=== PATIENT | female | born 1995 | race African-American/Black ===

== ENCOUNTER 2019-05-28 03:13 | Emergency (ER) | payer OTHER ==
[2019-05-28 04:51] LABS: BASO % 0.3 % (0.0-1.0); EOS # 0.4 10^3/uL (0.0-0.5); HEMATOCRIT 38.3 % (36.0-47.0); HEMOGLOBIN 11.8 g/dl (12.0-15.5); LYMPH % 32.5 % (24.0-44.0); MEAN CORPUSCULAR HEMOGLOBIN 23.9 pg (27.0-33.0); MEAN CORPUSCULAR HGB CONC 30.8 g/dl (32.0-36.5); MEAN CORPUSCULAR VOLUME 77.7 fl (80.0-96.0); MONO # 0.4 10^3/uL (0.0-0.8); MONO % 6.2 % (0.0-5.0); NEUTROPHILS # 3.4 10^3/uL (1.5-8.5); NEUTROPHILS % 54.8 % (36.0-66.0); PLATELET COUNT, AUTOMATED 237 10^3/uL (150-450); RED BLOOD COUNT 4.93 10^6/uL (4.00-5.40); WHITE BLOOD COUNT 6.2 10^3/uL (4.0-10.0)
[2019-05-28 05:10] LABS: HCG, SERUM QUALITATIVE NEGATIVE (NEGATIVE)
[2019-05-28 05:13] LABS: ALBUMIN 3.6 GM/DL (3.2-5.2); ALT/SGPT 17 U/L (12-78); BILIRUBIN,DIRECT 0.2 MG/DL (0.0-0.2); BILIRUBIN,TOTAL 0.6 MG/DL (0.2-1.0); BLOOD UREA NITROGEN 9 MG/DL (7-18); CALCIUM LEVEL 8.1 MG/DL (8.5-10.1); CARBON DIOXIDE LEVEL 27 MEQ/L (21-32); CHLORIDE LEVEL 108 MEQ/L (98-107); CREATININE FOR GFR 0.63 MG/DL (0.55-1.30); GLOMERULAR FILTRATION RATE > 60.0 (>60); GLUCOSE, FASTING 87 MG/DL (70-100); LIPASE 93 U/L (73-393); SODIUM LEVEL 142 MEQ/L (136-145); TOTAL PROTEIN 7.1 GM/DL (6.4-8.2)
[2019-05-28 06:55] LABS: CK-MB VALUE MASS < 1.0 NG/ML (<3.6); CPK CREATINE PHOSPHOKINASE 89 U/L (26-192); MB/CK RELATIVE INDEX 1.12 (< OR =4); TROPONIN I < 0.02 NG/ML (< 0.10)
--- NOTE | 2019-05-28 07:13 | REP ---
Clinical: Chest and abdominal pain . Comparison: None . Technique: PA and lateral. Findings: The mediastinum and cardiac silhouette are normal. The lung wahl are clear and without acute consolidation, effusion, or pneumothorax. The skeletal structures are intact and normal. Impression: 1. No acute cardiopulmonary process. Electronically Signed by Silvestre Steel MD 05/28/2019 07:04 A
--- NOTE | 2019-05-28 08:32 | REP ---
Clinical: Right upper quadrant pain. Technique: Real time andrade scale and color evaluation using curved array transducer. Findings: Liver and visualized pancreas are normal in contour, size, echogenicity without focal hepatic or pancreatic lesion identified. The patient is status post cholecystectomy. No biliary ductal dilatation is appreciated and the common bile duct measures 6.3 mm diameter. The right kidney is normal in reniform shape without hydronephrosis and measures 10.2 x 5.5 x 4.2 cm. No ascites. Impression: Cholecystectomy. No acute process. Electronically Signed by Silvestre Steel MD 05/28/2019 08:23 A
[2019-05-28] MEDS ORDERED: FLUCONAZOLE 50MG TABLET PO ONE (09:00)
[2019-05-28] MEDS ORDERED: GI COCKTAIL 50ML BTL(HYOSCYAMINE/MAALOX/LIDOCAINE VISCOUS)(1:3:1) PO ONE (09:00)
[2019-05-28] MEDS ORDERED: OMEP40CA97 PO (09:27)
[2019-05-28 09:57] VITALS: BP 100/61
[2019-05-28] MEDS ORDERED: FLUCONAZOLE 100 MG TAB PO ONE (10:00)
[2019-05-28 10:20] LABS: CHLAMYDIA DNA AMPLIFICATION NEGATIVE (NEGATIVE); GC DNA AMPLIFICATION NEGATIVE (NEGATIVE)
--- NOTE | 2019-05-28 15:24 | ECGEPIP ---
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
== END 2019-05-28 09:59 | disposition home or self-care (01) ==
LOC: M ED 03:13
DX: K29.70 Gastritis, unspecified, without bleeding (principal); B37.3 Candidiasis of vulva and vagina; Z87.19 Personal history of other diseases of the digestive system; Z90.49 Acquired absence of other specified parts of digestive tract; Z88.0 Allergy status to penicillin

== ENCOUNTER 2020-08-11 15:08 | Emergency (ER) | payer MEDICAID, OTHER ==
[~2020-08-11] VITALS: Ht 160 cm; Wt 84.4 kg
[~2020-08-11 15:08] MED LIST: OMEP40CA97 PO
[2020-08-11] MEDS ORDERED: acetaminophen PO (15:18)
[2020-08-11 16:09] LABS: BASO % 0.7 % (0.0-1.0); EOS # 0.3 10^3/uL (0.0-0.5); EOS % 4.9 % (0.0-3.0); HEMATOCRIT 36.7 % (36.0-47.0); HEMOGLOBIN 11.8 g/dl (12.0-15.5); LYMPH # 2.2 10^3/uL (1.5-5.0); LYMPH % 35.6 % (24.0-44.0); MEAN CORPUSCULAR HEMOGLOBIN 24.7 pg (27.0-33.0); MEAN CORPUSCULAR HGB CONC 32.2 g/dl (32.0-36.5); MEAN CORPUSCULAR VOLUME 76.9 fl (80.0-96.0); MONO # 0.4 10^3/uL (0.0-0.8); MONO % 5.9 % (2.0-8.0); NEUTROPHILS # 3.2 10^3/uL (1.5-8.5); NEUTROPHILS % 52.6 % (36.0-66.0); PLATELET COUNT, AUTOMATED 264 10^3/uL (150-450); RED BLOOD COUNT 4.77 10^6/uL (4.00-5.40); WHITE BLOOD COUNT 6.1 10^3/uL (4.0-10.0)
[2020-08-11] MEDS ORDERED: ISOVUE-370 76% 100ML VIAL As Ordered ONE (16:47)
[2020-08-11 17:12] LABS: BILIRUBIN,DIRECT 0.2 MG/DL (0.0-0.2); BILIRUBIN,TOTAL 0.6 MG/DL (0.2-1.0); TOTAL PROTEIN 7.4 GM/DL (6.4-8.2)
--- NOTE | 2020-08-11 17:21 | REP ---
INDICATION: lower abd pain/b flank pain. COMPARISON: None. TECHNIQUE: CT of the abdomen and pelvis with IV contrast, without bowel contrast. FINDINGS: The visualized lung wahl are unremarkable. The visualized lower ribs are unremarkable. The visualized thoracic and lumbar vertebra are unremarkable. The skeletal structures of the pelvis and hips are unremarkable. The hepatic parenchyma is homogeneous and unremarkable. There are surgical clips in the gallbladder fossa. The pancreas and spleen are normal size and unremarkable. The adrenals and kidneys are unremarkable. There is no hydronephrosis. There are no renal masses or cysts. There is no perinephric stranding or fluid collection. The abdominal aorta is unremarkable. There is no periaortic adenopathy, mass or fluid collection. There is no bowel distention, obstruction or wall thickening. The mesentery is unremarkable. Pelvis: There is a 3.1 cm left adnexal cyst. The right adnexa is unremarkable. The uterus is unremarkable. The bladder is unremarkable. There is no ascites or adenopathy. The pelvic bowel loops are unremarkable. The appendix and terminal ileum are unremarkable. IMPRESSION: There is a left adnexal cyst measuring up to 3.1 cm. Otherwise, essentially negative CT of the abdomen and pelvis. <Electronically signed by Bandar Robles > 08/11/20 [id number]
[2020-08-11 18:18] VITALS: BP 126/78
== END 2020-08-11 18:20 | disposition home or self-care (01) ==
LOC: M ED 15:08
DX: N83.202 Unspecified ovarian cyst, left side (principal); Z88.0 Allergy status to penicillin
CPT/HCPCS: 36415; 74177; 80047; 80076; 81001; 83690; 84702; 85025; 99284; Q9967

== ENCOUNTER 2020-09-06 11:28 | Emergency (ER) | payer MEDICAID ==
[~2020-09-06] VITALS: Ht 160 cm; Wt 77.3 kg
[2020-09-06 11:28] VITALS: BP 129/70
[~2020-09-06 11:28] MED LIST changes: +acetaminophen PO
== END 2020-09-06 11:45 | disposition left against medical advice (07) ==
LOC: M ED 11:28
DX: Z53.21 Procedure and treatment not carried out due to patient leaving prior to being seen by health care provider (principal)

== ENCOUNTER 2021-03-18 17:06 | Inpatient (IN) | payer MEDICAID ==
[~2021-03-18] VITALS: Ht 152.4 cm; Wt 87.8 kg
[~2021-03-18 17:06] MED LIST changes: +OMEP40CA4 PO; -OMEP40CA97 PO
[2021-03-18] MEDS ORDERED: NS 1,000 ML IV ONE (17:20)
[2021-03-18] MEDS ORDERED: ONDANSETRON 4MG/2ML VIAL IV ONE (17:20)
[2021-03-18] MEDS ORDERED: GI COCKTAIL 50ML BTL(HYOSCYAMINE/MAALOX/LIDOCAINE VISCOUS)(1:3:1) PO ONE (17:20)
[2021-03-18 17:49] LABS: BASO % 0.4 % (0.0-1.0); EOS # 0.4 10^3/uL (0.0-0.5); EOS % 5.2 % (0.0-3.0); HEMATOCRIT 32.9 % (36.0-47.0); HEMOGLOBIN 10.7 g/dl (12.0-15.5); LYMPH # 2.6 10^3/uL (1.5-5.0); LYMPH % 37.5 % (24.0-44.0); MEAN CORPUSCULAR HEMOGLOBIN 23.9 pg (27.0-33.0); MEAN CORPUSCULAR HGB CONC 32.5 g/dl (32.0-36.5); MEAN CORPUSCULAR VOLUME 73.6 fl (80.0-96.0); MONO # 0.7 10^3/uL (0.0-0.8); MONO % 9.5 % (2.0-8.0); NEUTROPHILS # 3.3 10^3/uL (1.5-8.5); NEUTROPHILS % 47.3 % (36.0-66.0); PLATELET COUNT, AUTOMATED 300 10^3/uL (150-450); RED BLOOD COUNT 4.47 10^6/uL (4.00-5.40)
--- NOTE | 2021-03-18 17:52 | ECGEPIP ---
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
--- OUTSIDE RECORDS SUMMARY | 2021-03-18 18:09 | CCD | Continuity of Care Document ---
Author Author [facility] Organization [facility] Address Unknown Phone Unavailable Care Team Providers Care Phytochemistry Professor Name Role Phone Pushpa Tomlinson MD Unavailable Unavailable Allergies, Adverse Reactions, Alerts Substance Reaction Status Criticality latex Active No Information Penicillins Hives / Skin Rash Active No Information Medications Medication Instructions Dosage Effective Dates (start - stop) Sta tus Comments naproxen 500 mg tablet take 1 tablet by oral route 2 times e very day with food 500 MG - Active NuvaRing 0.12 mg-0.015 mg/24 hr vaginal 1 ring inserte d vaginally x 3weeks, then 1 week out - Active Problems Condition Effective Dates (start - stop) Clinical Status C omments Unspecified injury of neck, initial encounter Pain in left shoulder Pain in right shoulder Pain in thoracic spine Other sex counseling Encounter for oth general cnsl and advice on contraception Encntr for f/u exam aft trtmt for cond oth than malig neoplm Encntr for f/u exam aft trtmt for cond oth than malig neoplm Encounter for oth general cnsl and advice on contraception Encounter for surveillance of vagnl ring Other sex counseling Encounter for test, result positive Problems related to unwanted state, incidental Encounter for elective termination of Encounter for other specified special examinations Unspecified blood type, Rh positive Encntr screen for dis of the bld/bld-form org/immun mechnsm Other sex counseling Encounter for oth general cnsl and advice on contraception Encntr screen for infections w sexl mode of transmiss High risk heterosexual behavior Pelvic and perineal pain Unspecified ovarian cyst, unspecified side Encounter for oth general cnsl and advice on contraception Encounter for surveillance of vagnl ring Other sex counseling Human immunodeficiency virus [HIV] counseling - Encounter for [facility] general cnsl and advice on contraception Other sex counseling Candidiasis of vulva and vagina Other specified noninflammatory disorders of vagina Pruritus vulvae Human immunodeficiency virus [HIV] counseling - Encntr for general adult medical exam w/o abnormal findings Anemia, unspecified Human immunodeficiency virus [HIV] counseling Other sex counseling Encounter for [facility] general cnsl and advice on contraception Acute vaginitis Encounter for screening for malignant neoplasm of cervix Encntr for obstetrics gyn physician 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) (routine) w/o abn findings Encntr screen for infections w sexl mode of transmiss Encounter for screening for human immunodeficiency virus Human immunodeficiency virus [HIV] counseling Other sex counseling Encounter for [facility] general cnsl and advice on contraception Encounter for surveillance of vagnl ring Encounter for [facility] general cnsl and advice on contraception Encounter for surveillance of vagnl ring Candidiasis of vulva and vagina Other sex counseling Encounter for [facility] general cnsl and advice on contraception Encntr for f/u exam aft trtmt for cond [facility] than [facility] Encounter for test, result positive Encntr screen for infections w sexl mode of transmiss Other sex counseling Encounter for [facility] general cnsl and advice on contraception Encounter for initial prescription of vagnl ring Encounter for elective termination of Encounter for other specified special examinations Unspecified blood type, Rh positive Problems related to unwanted state, incidental High risk heterosexual behavior Human immunodeficiency virus [HIV] counseling Nausea Other sex counseling Encounter for [facility] general cnsl and advice on contraception Human immunodeficiency virus [HIV] counseling Candidiasis of vulva and vagina Inapprop chg quantitav hCG in early Other sex counseling Encounter for [facility] general cnsl and advice on contraception Encntr for f/u exam aft trtmt for cond [facility] than mal neopl Encounter for prescription of emergency contraception Encounter for initial prescription of contraceptive pills Inapprop chg quantitav hCG in early Encounter for elective termination of Encounter for test, result positive Encntr screen for infections w sexl mode of transmiss state, incidental Encounter for blood typing Problems related to unwanted Encounter for other specified special examinations Encounter for [facility] general cnsl and advice on contraception High risk heterosexual behavior Human immunodeficiency virus [HIV] counseling Encounter for screening for human immunodeficiency virus Other sex counseling Less than 8 weeks gestation of Encounter for preprocedural laboratory examination Encounter for other preprocedural examination Procedures Procedure Date No Information Results Test Name Date and Time Measure Units Reference Range Abnormal Flag St atus Comments No Information Advance Directives Directive Yes / No Effective Date File Name No Information Encounters Encounter Description Practice Location Reason(s) For Visit Diagnose s Date Provider Providers Copied on Encounter [facility], [address] [place] [address], [id number], [place] tel:[phone] [facility] No Information Luz Maria Barrow. [address] [place] [address], [id number], [place]. tel:[phone] [facility], [address] [place] [address], [id number], [place] tel:[phone] [facility] Unspecified injury of neck, initial encounterPain in left shoulderPain in right shoulderPain in thoracic spine Christian Goldstein. [address] [place] [address], [id number], [place]. tel:[phone] Referring Provider: Susanne Gonzales, [address] [place] [address], [id number]. tel:[phone] [facility], [address] [place] [address], [id number], [place] tel:[phone] [facility] Other sex counselin gEncounter for oth general cnsl and advice on contraceptionEncntr for f/u exam aft trtmt for cond oth than malig neoplm Harshad Pelaez. [address], [place], [id number], [place]. tel:[phone] Referring Provider: Marycarmen Patricia, [address] [place] [address], [id number]. tel:[phone] [facility], [address] [place] [address], [id number], [place] tel:[phone] [facility] No Information Alona Goldstein. [address], [place], [id number], [place]. tel:[phone] [facility], [address], [place], [id number], [place] tel:[phone] [facility] Encntr for f/u exam aft trtmt for cond oth than malig neoplmEncounter for oth general cnsl and advice on contraceptionEncounter for surveillance of vagnl ringOther sex counseling Christian Goldstein. [address] [place], [place], [id number], [place]. tel:[phone] Referring Provider: Susanne Gonzales, [address], [place], [id number]. tel:[phone] [facility], [address], [place], [id number], [place] tel:[phone] [facility] Encounter for pregn delmi test, result positiveProblems related to unwanted pregnancy state, incidentalEncounter for elective termination of pregnancyEncounter for other specified special examinationsUnspecified blood type, Rh positiveEncntr screen for dis of the bld/bld-form org/immun mechnsmOther sex counselingEncounter for oth general cnsl and advice on contraceptionEncntr screen for infections w sexl mode of transmissHigh risk heterosexual behavior Christian Goldstein. [address], [place], [id number], [place]. tel:[phone] Referring Provider: Susanne Gonzales, [address], [place], [id number]. tel:[phone] [facility], [address], [place], [id number], [place] tel:[phone] [facility] Pelvic and perineal painUnspecified ovarian cyst, unspecified sideEncounter for oth general cnsl and advice on contraceptionEncounter for surveillance of vagnl ringOther sex counselingHuman immunodeficiency virus [HIV] counseling Christian Goldstein. [address] [place] [address], [id number], [place]. tel:[phone] Referring Provider: Susanne Gonzales, [address] [place] [address], [id number]. tel:[phone] [facility], [address] [place] [address], [id number], [place] tel:[phone] [facility] Encounter for oth g eneral cnsl and advice on contraceptionOther sex counselingCandidiasis of vulva and vaginaOther specified noninflammatory disorders of vaginaPruritus vulvaeHuman immunodeficiency virus [HIV] counseling Dwello Marycarmen duke. [address] [place] [address], [id number], [place]. tel:[phone] Referring Provider: Marycarmen Patricia, [address] [place] [address], [id number]. tel:[phone] [facility], [address] [place] [address], [id number], [place] tel:[phone] [facility] Encntr for general adult medical exam w/o abnormal findingsAnemia, unspecified Dwello Marycarmen nguyen. [address] [place] [address], [id number], [place]. tel:[phone] Referring Provider: Marycarmen Patricia, [address] [place] [address], [id number]. tel:[phone] [facility], [address] [place] [address], [id number], [place] tel:[phone] [facility] Human immunodeficie ncy virus [HIV] counselingOther sex counselingEncounter for oth general cnsl and advice on contraceptionAcute vaginitisEncounter for screening for malignant neoplasm of cervix Turner Wade. [address] [place] [address], [id number], [place]. tel:[phone] Referring Provider: Sheri Tompkins, [address] [place], [place], [id number]. tel:[phone] [facility], [address] [place] [address], [id number], [place] tel:[phone] [facility] Encntr for obstetrics gyn physician 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) (routine) w/o abn findingsEncntr screen for infections w sexl mode of transmissEncounter for screening for human immunodeficiency virusHuman immunodeficiency virus [HIV] counselingOther sex counselingEncounter for oth general cnsl and advice on contraceptionEncounter for surveillance of vagnl ring Harshad Pelaez. [address] [place] [address], [id number], [place]. tel:[phone] Referring Provider: Marycarmen Patricia, [address] [place] [address], [id number]. tel:[phone] [facility], [address] [place] [address], [id number], [place] tel:[phone] [facility] Encounter for oth g eneral cnsl and advice on contraceptionEncounter for surveillance of vagnl ringCandidiasis of vulva and vagina Alvina Borges. [address] [place] [address], [id number], [place]. tel:[phone] Referring Provider: Pushpa Tomlinson, [address] [place] [address], [id number]. tel:[phone] [facility], [address] [place] [address], [id number], [place] tel:[phone] [facility] Other sex counselin gEncounter for oth general cnsl and advice on contraceptionEncntr for f/u exam aft trtmt for cond oth than malig neoplm Paula Navarro. [address], [place], [id number], [place]. tel:[phone] Referring Provider: Melanie Mitchell, [address], [place], [id number]. tel:[phone] [facility], [address] [place] [address], [id number], [place] tel:[phone] [facility] [place] Encounter for pregn delmi test, result positiveEncntr screen for infections w sexl mode of transmissOther sex counselingEncounter for oth general cnsl and advice on contraceptionEncounter for initial prescription of vagnl ringEncounter for elective termination of pregnancyEncounter for other specified special examinationsUnspecified blood type, Rh positiveProblems related to unwanted pregnancy state, incidentalHigh risk heterosexual behaviorHuman immunodeficiency virus [HIV] counselingNausea Bill Amin. [address] [place] [address], [id number], [place]. tel:[phone] Referring Provider: Eloisa Khan, [address], [place], [id number]. tel:[phone] [facility], [address] [place] [address], [id number], [place] tel:[phone] [facility] Other sex counselin gEncounter for oth general cnsl and advice on contraceptionHuman immunodeficiency virus [HIV] counselingCandidiasis of vulva and vagina Paula rios [address] [place] [address], [id number], [place]. tel:[phone] Referring Provider: Melanie Mitchell, [address] [place] [address], [id number]. tel:[phone] [facility], [address] [place] [address], [id number], [place] tel:[phone] [facility] Inapprop chg quanti tav hCG in early Paula Navarro. [address], [place], [id number], [place]. tel:[phone] Referring Provider: Melanie Mitchell, [address], [place], [id number]. tel:[phone] [facility], [address] [place] [address], [id number], [place] tel:[phone] [facility] Other sex counselin gEncounter for oth general cnsl and advice on contraceptionEncntr for f/u exam aft trtmt for cond oth than malig neoplmEncounter for prescription of emergency contraception Encounter for initial prescription of contraceptive pillsInapprop chg quantitav hCG in early iBll Amin. [address] [place] [address], [id number], . tel:[phone] Referring Provider: Eloisa Khan, [address] [place] [address], [id number]. tel:[phone] [facility], [address] [place] [address], [id number], [place] tel:[phone] [facility] Encounter for elect chava termination of Bill Amin. [address] [place] [address], [id number], [place]. tel:[phone] Referring Provider: Eloisa Khan, [address], [place], [id number]. tel:[phone] [facility], [address] [place] [address], [id number], [place] tel:[phone] [facility] Encounter for pregn delmi test, result positiveEncntr screen for infections w sexl mode of transmiss state, incidentalEncounter for blood typingProblems related to unwanted pregnancyEncounter for other specified special examinationsEncounter for oth general cnsl and advice on contraceptionHigh risk heterosexual behaviorHuman immunodeficiency virus [HIV] counselingEncounter for screening for human immunodeficiency virusOther sex counselingLess than 8 weeks gestation of pregnancyEncounter for preprocedural laboratory examinationEncounter for other preprocedural examination Paula Navarro. [address] [place] [address], [id number], [place]. tel:[phone] Referring Provider: Melanie Mitchell, [address] [place] [address], [id number]. tel:[phone] Family History Family Member Diagnosis Age At Onset Maternal aunt Cancer, ovarian 1st degree relative No hx of cancer of breast, colon, endome trium or ovary 1st degree relative No hx of venous thromboembolism 1st degree relative No hx of coronary heart disease (female <65, male <55) Mother Hypertension Maternal grandmother Diabetes mellitus Immunizations Vaccine Date Status Comments No Information Payers Payer name Insurance type Covered alliance party ID Authorization(s ) Medicaid MC [id number] Social History Type Description Quantity Date Captured Comments Alcohol Use Details Unknown Caffeine Use Details Unknown Tobacco Use Status No Information Smoking Status Never smoker Sex Female Vital Signs Date / Time: Height Weight BMI Pulse Rate Blood Pressure Temperatu re Respiratory Rate Body Surface Area Head Circumference BMI percentile Pulse Ox In haled Ox No Information Chief Complaint And Reason For Visit No Information Reason For Referral Reason For Referral No Information Plan Of Treatment Date Type Action Status Appointment Ashlee Boucher BOOKED Appointment Ashlee Boucher -2 Month F/U B OOKED History Of Present Illness Encounter Date Complaint History Of Present I llness No Information Functional Status Date Functional Assessment No Information Medications Administered Medication Instructions Dosage Effective Dates (start - stop) Sta tus Comments No Information Instructions Date Instruction Additional Informati on No Information Assessments Type Assessment Date No Information Goals Health Concern Goal Type Priority Status Date No Information Medical Equipment Description Device [place] Device Identifier Effective Jose D es (start - stop) Status No Information Mental Status Date Cognitive Assessment No Information Health Concerns Observation Date No Information Concern Status Date No Information Physical Examination Exam Findings Details No Information
--- OUTSIDE RECORDS SUMMARY | 2021-03-18 18:09 | CCD | Continuity of Care Document ---
Author Author [facility] Organization [facility] Address Unknown Phone Unavailable Care Team Providers Care Timber Sprinkler Name Role Phone Pushpa Tomlinson MD Unavailable [...] immunodeficiency virus [HIV] counseling - Encounter for [facility] general cnsl and advice on contraception Other sex counseling Candidiasis of vulva and vagina Other specified noninflammatory disorders of vagina Pruritus vulvae Human immunodeficiency virus [HIV] counseling - Encntr for general adult medical exam w/o abnormal findings Anemia, unspecified Human immunodeficiency virus [HIV] counseling Other sex counseling Encounter for [facility] general cnsl and advice on contraception Acute vaginitis Encounter for screening for malignant neoplasm of cervix 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) w/o abn findings Encntr screen for infections w sexl mode of transmiss Encounter for screening for human immunodeficiency virus Human immunodeficiency virus [HIV] counseling Other sex counseling Encounter for [facility] general cnsl and advice on contraception Encounter for surveillance of vagnl ring Encounter for [facility] general cnsl and advice on contraception Encounter for surveillance of vagnl ring Candidiasis of vulva and vagina Other sex counseling Encounter for [facility] general cnsl and advice on contraception Encntr for f/u exam aft trtmt for cond [facility] than [facility] Encounter for test, result positive Encntr screen for infections w sexl mode of transmiss Other sex counseling Encounter for [facility] general cnsl and advice on contraception Encounter for initial prescription of vagnl ring Encounter for elective termination of Encounter for other specified special examinations Unspecified blood type, Rh positive Problems related to unwanted state, incidental High risk heterosexual behavior Human immunodeficiency virus [HIV] counseling Nausea Other sex counseling Encounter for [facility] general cnsl and advice on contraception Human immunodeficiency virus [HIV] counseling Candidiasis of vulva and vagina Inapprop chg quantitav hCG in early Other sex counseling Encounter for [facility] general cnsl and advice on contraception Encntr for f/u exam aft trtmt for cond [facility] than mal neopl Encounter for prescription of emergency contraception Encounter for initial prescription of contraceptive pills Inapprop chg quantitav hCG in early Encounter for elective termination of Encounter for test, result positive Encntr screen for infections w sexl mode of transmiss state, incidental Encounter for blood typing Problems related to unwanted Encounter for other specified special examinations Encounter for [facility] general cnsl and advice on contraception [...] Provider Providers Copied on Encounter [facility], [address] [place] [address], [id number], tel:[phone] FATOU Rizzo No Information Davi Pushpa. [address] [place] [address], [id number], [place]. tel:[phone] [facility], [address] [place] [address], [id number], [place] tel:[phone] FATOU [place] Unspecified injury of neck, initial encounterPain in left shoulderPain in right shoulderPain in thoracic spine Christian Goldstein. [address] [place] [address], [id number], [place]. tel:[phone] Referring Provider: Susanne Gonzales, [address] [place] [address], [id number]. tel:[phone] [facility], [address] [place] [address], [id number], [place] tel:[phone] SEBASTIANWVJANNA [place] Other sex counselin gEncounter for oth general cnsl and advice on contraceptionEncntr for f/u exam aft trtmt for cond oth than malig neoplm Harshad Pelaez. [address] [place] [address], [id number], [place]. tel:[phone] Referring Provider: Marycarmen Patricia, [address] [place] [address], [id number]. tel:[phone] [facility], [address] [place] [address], [id number], [place] tel:[phone] [facility] No Information Alona winifred Goldstein. [address] [place], [place], [id number], [place]. tel:[phone] [facility], [address] [place], [place], [id number], [place] tel:[phone] [facility] Encntr for f/u exam aft trtmt for cond oth than malig neoplmEncounter for oth general cnsl and advice on contraceptionEncounter for surveillance of vagnl ringOther sex counseling Christian Goldstein. [address] [place], [place], [id number], [place]. tel:[phone] Referring Provider: Susanne Gonzales, [address], [place], [id number]. tel:[phone] [facility], [address], [place], [id number], [place] tel:[phone] [facility] Encounter for pregn delmi test, result positiveProblems related to unwanted pregnancy state, incidentalEncounter for elective termination of pregnancyEncounter for other specified special examinationsUnspecified blood type, Rh positiveEncntr screen for dis of the bld/bld-form org/immun mechnsmOther sex counselingEncounter for oth general cnsl and advice on contraceptionEncntr screen for infections w sexl mode of transmissHigh risk heterosexual behavior Christian Goldstein. [address], [place], [id number], [place]. tel:[phone] Referring Provider: Susanne Gonzales, [address], [place], [id number]. tel:[phone] [facility], [address], [place], [id number], [place] tel:[phone] [facility] Pelvic and perineal painUnspecified ovarian cyst, unspecified sideEncounter for oth general cnsl and advice on contraceptionEncounter for surveillance of vagnl ringOther sex counselingHuman immunodeficiency virus [HIV] counseling Christian Goldstein. [address] [place] [address], [id number], [place]. tel:[phone] Referring Provider: Susanne Gonzales, [address] [place] [address], [id number]. tel:[phone] [facility], [address] [place] [address], [id number], [place] tel:[phone] PPWVNY [place] Encounter for oth g eneral cnsl and advice on contraceptionOther sex counselingCandidiasis of vulva and vaginaOther specified noninflammatory disorders of vaginaPruritus vulvaeHuman immunodeficiency virus [HIV] counseling Dwello Marycarmen duke. [address] [place] [address], [id number], [place]. tel:[phone] Referring Provider: Marycarmen Patricia, [address] [place] [address], [id number]. tel:[phone] [facility], [address] [place] [address], [id number], [place] tel:[phone] [facility] [place] Encntr for general adult medical exam w/o abnormal findingsAnemia, unspecified Dwello Marycarmen nguyen. [address] [place] [address], [id number], [place]. tel:[phone] Referring Provider: Marycarmen Patricia, [address] [place] [address], [id number]. tel:[phone] [facility], [address] [place] [address], [id number], [place] tel:[phone] PPNC[facility] [place] Human immunodeficie ncy virus [HIV] counselingOther sex counselingEncounter for oth general cnsl and advice on contraceptionAcute vaginitisEncounter for screening for malignant neoplasm of cervix Turner Wade. [address] [place] [address], [id number], [place]. tel:[phone] Referring Provider: Sheri Tompkins, [address] [place], [place], [id number]. 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 [address] [place] [address], [id number], [place]. tel:[phone] Referring Provider: Marycarmen Patricia, [address] [place] [address], [id number]. tel:[phone] [facility], [address] [place] [address], [id number], [place] tel:[phone] PP[facility] [place] Encounter for oth g eneral cnsl and advice on contraceptionEncounter for surveillance of vagnl ringCandidiasis of vulva and vagina Alvina Borges. [address] [place] [address], [id number], [place]. tel:[phone] Referring Provider: Pushpa Tomlinson, [address] [place] [address], [id number]. tel:[phone] [facility], [address] [place] [address], [id number], [place] tel:[phone] [facility]NC[facility] [place] Other sex counselin gEncounter for oth general cnsl and advice on contraceptionEncntr for f/u exam aft trtmt for cond oth than malig neoplm Paula Navarro. [address] [place], [place], [id number], [place]. tel:[phone] Referring Provider: Melanie Mitchell, [address] [place], [place], [id number]. tel:[phone] [facility], [address] [place] [address], [id number], [place] tel:[phone] [facility] [place] Encounter for pregn delmi test, result positiveEncntr screen for infections w sexl mode of transmissOther sex counselingEncounter for oth general cnsl and advice on contraceptionEncounter for initial prescription of vagnl ringEncounter for elective termination of pregnancyEncounter for other specified special examinationsUnspecified blood type, Rh positiveProblems related to unwanted pregnancy state, incidentalHigh risk heterosexual behaviorHuman immunodeficiency virus [HIV] counselingNausea Bill Amin. [address] [place] [address], [id number], [place]. tel:[phone] Referring Provider: Eloisa Khan, [address] [place], [place], [id number]. tel:[phone] [facility], [address] [place] [address], [id number], [place] tel:[phone] [facility] Other sex counselin gEncounter for oth general cnsl and advice on contraceptionHuman immunodeficiency virus [HIV] counselingCandidiasis of vulva and vagina Paula gordon. [address] [place] [address], [id number], [place]. tel:[phone] Referring Provider: Melanie Mitchell, [address] [place] [address], [id number]. tel:[phone] [facility], [address] [place] [address], [id number], [place] tel:[phone] [facility] Inapprop chg quanti tav hCG in early Paula Navarro. [address] [place], [place], [id number], [place]. tel:[phone] Referring Provider: Melanie Mitchell, [address] [place], [place], [id number]. tel:[phone] [facility] [place], [address] [place] [address], [id number], [place] tel:[phone] PP[facility] [place] Other sex counselin gEncounter for oth general cnsl and advice on contraceptionEncntr for f/u exam aft trtmt for cond oth than malig neoplmEncounter for prescription of emergency contraception Encounter for initial prescription of contraceptive pillsInapprop chg quantitav hCG in early Bill Amin. [address] [place] [address], [id number], . tel:[phone] Referring Provider: Eloisa Khan, [address] [place] [address], [id number]. tel:[phone] [facility], [address] [place] [address], [id number], [place] tel:[phone] [facility] Encounter for elect chava termination of Bill Amin. [address] [place] [address], [id number], [place]. tel:[phone] Referring Provider: Eloisa Khan, [address] [place], [place], [id number]. tel:[phone] [facility], [address] [place] [address], [id number], [place] tel:[phone] [facility] [place] Encounter for pregn delmi test, result positiveEncntr [...] examinationEncounter for other preprocedural examination Paula Navarro. [address] [place] [address], [id number], . tel:[phone] Referring Provider: Melanie Mitchell, [address] [place] [address], [id number]. tel:[phone] Family History Family Member Diagnosis Age At [...] Information Payers Payer name Insurance type Covered libertarian ID Authorization(s ) Medicaid MC [id number] Social History Type Description Quantity Date Captured Comments Sex Female Smoking Status No Information Vital Signs Date / Time: Height Weight [...] Date No Information Medical Equipment Description Device [place] Device Identifier Effective Jose D es (start - stop) Status No Information Mental Status Date Cognitive Assessment No Information Health Concerns Observation Date No Information Concern Status Date No Information Physical Examination Exam Findings Details No Information
--- OUTSIDE RECORDS SUMMARY | 2021-03-18 18:09 | CCD | Continuity of Care Document ---
Author Author [facility] Organization [facility] Address Unknown Phone Unavailable Care Team Providers Care Metal Sash Setter Name Role Phone Christian REMOTE BROADCAST TECHNICIAN, Susanne Goldstein Unavailable Unavailable Allergies, Adverse Reactions, Alerts Substance Reaction Status Criticality Penicillins Hives / Skin Rash Active No Information Medications Medication Instructions Dosage Effective Dates (start - stop) Sta tus Comments NuvaRing 0.12 mg-0.015 mg/24 hr vaginal 1 ring inserte d vaginally x 3weeks, then 1 week out - Active Probiotic 100 billion cell capsule - A ctive Problems Condition Effective Dates (start - stop) Clinical Status C omments Other sex counseling Encounter for oth general [...] immunodeficiency virus [HIV] counseling - Encounter for oth general cnsl and advice on contraception Other sex counseling Candidiasis of vulva and vagina Other specified noninflammatory disorders of vagina Pruritus vulvae Human immunodeficiency virus [HIV] counseling - Encntr for general adult medical exam w/o abnormal findings Anemia, unspecified Human immunodeficiency virus [HIV] counseling Other sex counseling Encounter for [facility] and advice on contraception Acute vaginitis Encounter for screening for malignant neoplasm of cervix 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 abn findings Encntr screen for infections w sexl mode of transmiss Encounter for screening for human immunodeficiency virus Human immunodeficiency virus [HIV] counseling Other sex counseling Encounter for ot general cnsl and advice on contraception Encounter for surveillance of vagnl ring Encounter for ot general cnsl and advice on contraception Encounter for surveillance of vagnl ring Candidiasis of vulva and vagina Other sex counseling Encounter for [facility] and advice on contraception Encntr for f/u exam aft trtmt for cond [facility] Encounter for test, result positive Encntr screen for infections w sexl mode of transmiss Other sex counseling Encounter for [facility] and advice on contraception Encounter for initial prescription of vagnl ring Encounter for elective termination of Encounter for other specified special examinations Unspecified blood type, Rh positive Problems related to unwanted state, incidental High risk heterosexual behavior Human immunodeficiency virus [HIV] counseling Nausea Other sex counseling Encounter for [facility] and advice on contraception Human immunodeficiency virus [HIV] counseling Candidiasis of vulva and vagina Inapprop chg quantitav hCG in early Other sex counseling Encounter for [facility] and advice on contraception Encntr for f/u exam aft trtmt for cond [facility] Encounter for prescription of emergency contraception Encounter for initial prescription of contraceptive pills Inapprop chg quantitav hCG in early Encounter for elective termination of Encounter for test, result positive Encntr screen for infections w sexl mode of transmiss state, incidental Encounter for blood typing Problems related to unwanted Encounter for other specified special examinations Encounter for [facility] and advice on contraception High [...] Provider Providers Copied on Encounter [facility], [address] [place] [address], [id number], tel:[phone] [facility] [place] No Information Alona Goldstein. [address], [place], [id number], [place]. tel:[phone] [facility], [address] [place] [address], [id number], [place] tel:[phone] [facility] [place] Other sex counselin gEncounter for oth general cnsl and advice on contraceptionEncntr for f/u exam aft trtmt for cond oth than malig neoplm Harshad Pelaez. [address] [place] [address], [id number], [place]. tel:[phone] Referring Provider: Marycarmen Patricia, [address] [place] [address], [id number]. tel:[phone] [facility], [address] [place] [address], [id number], [place] tel:[phone] [facility] [place] [facility] No Information Alona Goldstein. [address], [place], [id number], [place]. tel:[phone] [facility], [address] [place] [address], [id number], [place] tel:[phone] [facility] [place] Encntr for f/u exam aft trtmt for cond oth than malig neoplmEncounter for oth general cnsl and advice on contraceptionEncounter for surveillance of vagnl ringOther sex counseling Christian Goldstein. [address] [place] [address], [id number], [place]. tel:[phone] Referring Provider: Susanne Gonzales, [address], [place], [id number]. tel:[phone] [facility], [address], [place], [id number], [place] tel:[phone] [facility] Encounter for pregn delmi test, result positiveProblems related to unwanted pregnancy state, incidentalEncounter for elective termination of pregnancyEncounter for other specified special examinationsUnspecified blood type, Rh positiveEncntr screen for dis of the bld/bld-form org/immun mechnsmOther sex counselingEncounter for oth general cnsl and advice on contraceptionEncntr screen for infections w sexl mode of transmissHigh risk heterosexual behavior Christian Goldstein. [address], [place], [id number], [place]. tel:[phone] Referring Provider: Susanne Gonzales, [address], [place], [id number]. tel:[phone] [facility], [address] [place] [address], [id number], [place] tel:[phone] [facility] Pelvic and perineal painUnspecified ovarian cyst, unspecified sideEncounter for oth general cnsl and advice on contraceptionEncounter for surveillance of vagnl ringOther sex counselingHuman immunodeficiency virus [HIV] counseling Christian Goldstein. [address], [place], [id number], [place]. tel:[phone] Referring Provider: Susanne Gonzales, [address], [place], [id number]. tel:[phone] [facility], [address] [place] [address], [id number], [place] tel:[phone] [facility] Encounter for oth g eneral cnsl and advice on contraceptionOther sex counselingCandidiasis of vulva and vaginaOther specified noninflammatory disorders of vaginaPruritus vulvaeHuman immunodeficiency virus [HIV] counseling Dwello Marycarmen duke. [address] [place] [address], [id number], . tel:[phone] Referring Provider: Marycarmen Patricia, [address] [place] [address], [address] [place] [address]. tel:[phone] [facility], [address] [place] [address], [id number], [place] tel:[phone] [facility] [place] [facility] Encntr for general adult medical exam w/o abnormal findingsAnemia, unspecified Dwelldemetrius nguyen. [address] [place] [address], [id number], [place]. tel:[phone] Referring Provider: Marycarmen Patricia, [address] [place] [address], [address] [place] [address]. tel:[phone] [facility], [address] [place] [address], [id number], [place] tel:[phone] [facility] Human immunodeficie ncy virus [HIV] counselingOther sex counselingEncounter for oth general cnsl and advice on contraceptionAcute vaginitisEncounter for screening for malignant neoplasm of cervix Turner Wade. [address] [place] [address], [id number], . tel:[phone] Referring Provider: Sheri Tompkins, [address] [place] [address], [id number]. 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 [address] [place] [address], [id number], [place]. tel:[phone] Referring Provider: Marycarmen Pelaez Harshad, [address] [place] [address], [id number]. tel:[phone] [facility], [address] [place] [address], [id number], [place] tel:[phone] [facility] Encounter for oth g eneral cnsl and advice on contraceptionEncounter for surveillance of vagnl ringCandidiasis of vulva and vagina Alvina Borges. [address] [place] [address], [id number], [place]. tel:[phone] Referring Provider: Pushpa Tomlinson, [address] [place] [address], [id number]. tel:[phone] [facility], [address] [place] [address], [id number], [place] tel:[phone] [facility] Other sex counselin gEncounter for oth general cnsl and advice on contraceptionEncntr for f/u exam aft trtmt for cond oth than malig neoplm Paula Navarro. [address] [place] [address], [id number], . tel:[phone] Referring Provider: Melanie Mitchell, [address] [place] [address], [id number]. tel:[phone] [facility], [address] [place] [address], [id number], [place] tel:[phone] [facility] [place] Encounter for pregn delmi test, result positiveEncntr screen for infections w sexl mode of transmissOther sex counselingEncounter for oth general cnsl and advice on contraceptionEncounter for initial prescription of vagnl ringEncounter for elective termination of pregnancyEncounter for other specified special examinationsUnspecified blood type, Rh positiveProblems related to unwanted pregnancy state, incidentalHigh risk heterosexual behaviorHuman immunodeficiency virus [HIV] counselingNausea Bill Amin. [address] [place] [address], [address] [place] [address], . tel:[phone] Referring Provider: Eloisa Khan, [address] [place], [place], [id number]. tel:[phone] [facility], [address] [place] [address], [id number], [place] tel:[phone] [facility] Other sex counselin gEncounter for oth general cnsl and advice on contraceptionHuman immunodeficiency virus [HIV] counselingCandidiasis of vulva and vagina Paula rios [address] [place] [address], [id number], . tel:[phone] Referring Provider: Melanie Mitchell, [address] [place] [address], [address] [place] [address]. tel:[phone] [facility], [address] [place] [address], [id number], [place] tel:[phone] [facility] Inapprop chg quanti tav hCG in early Paula Navarro. [address] [place] [address], [id number], . tel:[phone] Referring Provider: Melanie Mitchell, [address], [place], [id number]. tel:[phone] [facility], [address] [place] [address], [id number], [place] tel:[phone] [facility] Other sex counselin gEncounter for oth general cnsl and advice on contraceptionEncntr for f/u exam aft trtmt for cond oth than malig neoplmEncounter for prescription of emergency contraception Encounter for initial prescription of contraceptive pillsInapprop chg quantitav hCG in early Bill Amin. [address] [place] [address], [address] [place] [address], . tel:[phone] Referring Provider: Eloisa Khan, [address] [place] [address], [address] [place] [address]. tel:[phone] [facility], [address] [place] [address], [id number], tel:[phone] [facility] Encounter for elect chava termination of Bill Amin. [address] [place] [address], [id number], . tel:[phone] Referring Provider: Eloisa Khan, [address] [place], [place], [address] [place] [address]. tel:[phone] [facility], [address] [place] [address], [address] [place] [address], tel:[phone] [facility] Encounter for pregn delmi test, result positiveEncntr [...] examinationEncounter for other preprocedural examination Paula Navarro. [address] [place] [address], [id number], . tel:[phone] Referring Provider: Melanie Mitchell, [address] [place] [address], [id number]. tel:[phone] Family History Family Member Diagnosis Age At [...] Information Payers Payer name Insurance type Covered democrat ID Authorization(s ) Medicaid MC [id number] Social History Type Description Quantity Date Captured [...] Date Type Action Status Appointment Ashlee Boucher For PT To CB BOOKED History Of Present Illness Encounter Date Complaint [...] Date No Information Medical Equipment Description Device [place] Device Identifier Effective Jose D es (start - stop) Status No Information Mental Status Date Cognitive Assessment No Information Health Concerns Observation Date No Information Concern Status Date No Information Physical Examination Exam Findings Details No Information
--- OUTSIDE RECORDS SUMMARY | 2021-03-18 18:09 | CCD | Continuity of Care Document ---
Author Author [facility] Address Unknown Phone Unavailable Care Team Providers Care Hay Farmer Name Role Phone Christian NURSE ADVOCATE, Susanne Goldstein Unavailable Unavailable Allergies, Adverse Reactions, [...] Active Probiotic 100 billion cell capsule - No Longer Active Problems Condition Effective Dates (start - [...] Unspecified ovarian cyst, unspecified side Encounter for [facility] c[facility] and advice on contraception Encounter for surveillance of vagnl ring Other sex counseling Human immunodeficiency virus [HIV] counseling - Encounter for [facility] cns[facility] and advice on contraception Other sex counseling Candidiasis of vulva and vagina Other specified noninflammatory disorders of vagina Pruritus vulvae Human immunodeficiency virus [HIV] counseling - Encntr for general adult medical exam w/o abnormal findings Anemia, unspecified Human immunodeficiency virus [HIV] counseling Other sex counseling Encounter for [facility] cns[facility] and advice on contraception Acute vaginitis Encounter for screening for malignant neoplasm of cervix Encntr for bucket turner 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) (routine) w/o abn findings Encntr screen for infections w sexl mode of transmiss Encounter for screening for human immunodeficiency virus Human immunodeficiency virus [HIV] counseling Other sex counseling Encounter for [facility] c[facility] and advice on contraception Encounter for surveillance of vagnl ring Encounter for [facility] c[facility] and advice on contraception Encounter for surveillance of vagnl ring Candidiasis of vulva and vagina Other sex counseling Encounter for [facility] c[facility] and advice on contraception Encntr for f/u exam aft trtmt for cond [facility] Encounter for test, result positive Encntr screen for infections w sexl mode of transmiss Other sex counseling Encounter for [facility] and advice on contraception Encounter for initial prescription of vagnl ring Encounter for elective termination of Encounter for other specified special examinations Unspecified blood type, Rh positive Problems related to unwanted state, incidental High risk heterosexual behavior Human immunodeficiency virus [HIV] counseling Nausea Other sex counseling Encounter for [facility] and advice on contraception Human immunodeficiency virus [HIV] counseling Candidiasis of vulva and vagina Inapprop chg quantitav hCG in early Other sex counseling Encounter for [facility] and advice on contraception Encntr for f/u exam aft trtmt for cond [facility] neopl Encounter for prescription of emergency contraception Encounter for initial prescription of contraceptive pills Inapprop chg quantitav hCG in early Encounter for elective termination of Encounter for test, result positive Encntr screen for infections w sexl mode of transmiss state, incidental Encounter for blood typing Problems related to unwanted Encounter for other specified special examinations Encounter for [facility] and advice on contraception High risk heterosexual behavior Human immunodeficiency virus [HIV] counseling Encounter for screening for human immunodeficiency virus Other sex counseling Less than 8 weeks gestation of Encounter for preprocedural laboratory examination Encounter for other preprocedural examination Procedures Procedure Date Est Pt PC Exp Prob Focused CVR Blood Pressure CVR Med.Svc. Height/Weight CVR Mechanic'S Assistant.Svc. Other Results Test Name Date and Time Measure Units Reference Range Abnormal Flag St atus Comments No Information Advance Directives Directive Yes / No Effective Date File Name No Information Encounters Encounter Description Practice Location Reason(s) For Visit Diagnose s Date Provider Providers [facility]ied on [facility], [address] [place] [address], [id number], tel:[phone] [facility] Generic Primary Care (chief complaint) Unspecified injury of neck, initial encounterPain in left shoulderPain in right shoulderPain in thoracic spine Christian Goldstein. [address] [place] [address], [id number], [place]. tel:[phone] Referring Provider: Susanne Gonzales, [address] [place] [address], [id number]. tel:[phone] [facility], [address] [place] [address], [id number], [place] tel:[phone] [facility] Other sex counselin gEncounter for oth general cnsl and advice on contraceptionEncntr for f/u exam aft trtmt for cond oth than malig neoplm Harshad Pelaez. [address] [place] [address], [id number], [place]. tel:[phone] Referring Provider: Marycarmen Patricia, [address] [place] [address], [id number]. tel:[phone] [facility], [address] [place] [address], [id number], [place] tel:[phone] [facility] No Information Alona winifred Goldstein. [address], [place], [id number], [place]. tel:[phone] [facility], [address], [place], [id number], [place] tel:[phone] [facility] Encntr for f/u exam aft trtmt for cond oth than malig neoplmEncounter for oth general cnsl and advice on contraceptionEncounter for surveillance of vagnl ringOther sex counseling Christian Goldstein. [address] [place], [place], [id number], [place]. tel:[phone] Referring Provider: Susanne Gonzales, [address], [place], [id number]. tel:[phone] [facility], [address], [place], [id number], [place] tel:[phone] [facility] Encounter for pregn delmi test, result positiveProblems related to unwanted pregnancy state, incidentalEncounter for elective termination of pregnancyEncounter for other specified special examinationsUnspecified blood type, Rh positiveEncntr screen for dis of the bld/bld-form org/immun mechnsmOther sex counselingEncounter for oth general cnsl and advice on contraceptionEncntr screen for infections w sexl mode of transmissHigh risk heterosexual behavior Christian Goldstein. [address], [place], [id number], [place]. tel:[phone] Referring Provider: Susanen Gonzales, [address], [place], [id number]. tel:[phone] [facility], [address], [place], [id number], [place] tel:[phone] [facility] Pelvic and perineal painUnspecified ovarian cyst, unspecified sideEncounter for oth general cnsl and advice on contraceptionEncounter for surveillance of vagnl ringOther sex counselingHuman immunodeficiency virus [HIV] counseling Christian Goldstein. [address] [place] [address], [id number], [place]. tel:[phone] Referring Provider: Susanne Gonzales, [address] [place] [address], [id number]. tel:[phone] [facility], [address] [place] [address], [id number], [place] tel:[phone] [facility] Encounter for oth g eneral cnsl and advice on contraceptionOther sex counselingCandidiasis of vulva and vaginaOther specified noninflammatory disorders of vaginaPruritus vulvaeHuman immunodeficiency virus [HIV] counseling [place] Marycarmen duke. [address] [place] [address], [id number], [place]. tel:[phone] Referring Provider: Marycarmen Patriica, [address] [place] [address], [id number]. tel:[phone] [facility], [address] [place] [address], [id number], [place] tel:[phone] [facility] Encntr for general adult medical exam w/o abnormal findingsAnemia, unspecified [place] Marycarmen nguyen. [address] [place] [address], [id number], [place]. tel:[phone] Referring Provider: Marycarmen Patricia, [address] [place] [address], [id number]. tel:[phone] [facility], [address] [place] [address], [id number], [place] tel:[phone] [facility] Human immunodeficie ncy virus [HIV] counselingOther sex counselingEncounter for oth general cnsl and advice on contraceptionAcute vaginitisEncounter for screening for malignant neoplasm of cervix Turner Wade. [address], [place], [id number], [place]. tel:[phone] Referring Provider: Sheri Tompkins, [address] [place], [place], [id number]. tel:[phone] [facility], [address], [place], [id number], [place] tel:[phone] [facility] Encntr for bucket turner 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) (routine) w/o abn findingsEncntr screen for infections w sexl mode of transmissEncounter for screening for human immunodeficiency virusHuman immunodeficiency virus [HIV] counselingOther sex counselingEncounter for oth general cnsl and advice on contraceptionEncounter for surveillance of vagnl ring Harshad Pelaez. [address] [place], [place], [id number], [place]. tel:[phone] Referring Provider: Marycarmen Patricia, [address] [place], [place], [id number]. tel:[phone] [facility], [address], [place], [id number], [place] tel:[phone] FATOU Heck Encounter for oth g eneral cnsl and advice on contraceptionEncounter for surveillance of vagnl ringCandidiasis of vulva and vagina Alvina Borges. [address] [place], [place], [id number], [place]. tel:[phone] Referring Provider: Pushpa Tomlinson, [address] [place], [place], [id number]. tel:[phone] [facility], [address], [place], [id number], [place] tel:[phone] [facility] Other sex counselin gEncounter for oth general cnsl and advice on contraceptionEncntr for f/u exam aft trtmt for cond oth than malig neoplm Paula Navarro. [address] [place], [place], [id number], [place]. tel:[phone] Referring Provider: Melanie Mitchell, [address] [place] [address], [id number]. tel:[phone] [facility], [address] [place] [address], [id number], [place] tel:[phone] [facility] Encounter for pregn delmi test, result positiveEncntr screen for infections w sexl mode of transmissOther sex counselingEncounter for oth general cnsl and advice on contraceptionEncounter for initial prescription of vagnl ringEncounter for elective termination of pregnancyEncounter for other specified special examinationsUnspecified blood type, Rh positiveProblems related to unwanted pregnancy state, incidentalHigh risk heterosexual behaviorHuman immunodeficiency virus [HIV] counselingNausea Bill Amin. [address] [place] [address], [id number], . tel:[phone] Referring Provider: Eloisa Khan, [address] [place], [place], [id number]. tel:[phone] [facility], [address] [place] [address], [id number], [place] tel:[phone] [facility] Other sex counselin gEncounter for oth general cnsl and advice on contraceptionHuman immunodeficiency virus [HIV] counselingCandidiasis of vulva and vagina Paula rios [address] [place] [address], [id number], [place]. tel:[phone] Referring Provider: Melanie Mitchell, [address] [place] [address], [id number]. tel:[phone] [facility], [address] [place] [address], [id number], [place] tel:[phone] [facility] Inapprop chg quanti tav hCG in early Paula Navarro. [address] [place], [place], [id number], [place]. tel:[phone] Referring Provider: Melanie Mitchell, [address], [place], [id number]. tel:[phone] [facility], [address] [place] [address], [id number], [place] tel:[phone] [facility] Other sex counselin gEncounter for oth general cnsl and advice on contraceptionEncntr for f/u exam aft trtmt for cond oth than malig neoplmEncounter for prescription of emergency contraception Encounter for initial prescription of contraceptive pillsInapprop chg quantitav hCG in early Bill Amin. [address] [place] [address], [id number], . tel:[phone] Referring Provider: Eloisa Khan, [address] [place] [address], [id number]. tel:[phone] [facility], [address] [place] [address], [id number], [place] tel:[phone] [facility] Encounter for elect chava termination of Bill Amin. [address] [place] [address], [id number], [place]. tel:[phone] Referring Provider: Eloisa Khan, [address] [place], [place], [id number]. tel:[phone] [facility], [address] [place] [address], [id number], [place] tel:[phone] [facility] Encounter for pregn delmi test, result positiveEncntr [...] examinationEncounter for other preprocedural examination Paula Navarro. [address] [place] [address], [id number], . tel:[phone] Referring Provider: Melanie Mitchell, [address] [place] [address], [id number]. tel:[phone] Family History Family Member Diagnosis Age At [...] Covered libertarian ID Authorization(s ) Medicaid MC [id number] Social History Type Description Quantity Date Captured Comments Alcohol Use Details Unknown Caffeine Use Details Unknown Tobacco Use Status Current non-smoker Smoking Status Never smoker Non-Smoking Tobacco Use Details : No Details Available : No Details Available Sex Female Vital Signs Date / Time: Height Weight BMI Pulse Rate Blood Pressure Temperatu re Respiratory Rate Body Surface Area Head Circumference BMI percentile Pulse Ox In haled Ox 1:50 PM 63.00 in 193.00 lbs 34.19 kg/meter(2) 88 /min 1 10/82 mm[Hg] 99.00 F 20 /min 98 Chief Complaint And Reason For Visit Most recent encounter only, dated '03/02/2021 07:45'. Generic Primary Care (chief complaint). Description: Onset: gradual. The proble m is severe. Duration: 2 Years. The frequency of pain is daily. Aggravating f actors include bending, climbing stairs, driving, exertion, flexion, hyperextens ion, kneeling, lifting, lying down, prolonged sitting, pushing, rotation, runnin g, standing, stress, turning head, twisting, walking and working. The patient d enies aggravating factors such as coughing, defecation, sneezing, stooping, stra ining and Valsalva. Relieving factors include rest. The patient experiences no relief from acupuncture, cervical collar, cervical traction, cold compresses, e xercise, heating pad, ice, injection, lateral bending, manipulation, massage, mu scle relaxation techniques, narcotic analgesics, NSAIDs, OTC medications, physic al therapy, rotation, sitting, splint, standing, stretching, twisting and walkin g. Associated symptoms include decreased mobility, difficulty sleeping, muscle spasm and tenderness. Pertinent negatives include bladder dysfunction not spina l related, bladder incontinence, bladder retention, bowel dysfunction not spinal related, bowel incontinence, bowel retention, dermatomic rash, incoordination, joint pain, loss of balance, muscle atrophy, numbness, rash, sexual dysfunction, sexual dysfunction (not spinal related), tingling, weakness and weight loss. Reason For Referral Reason For Referral No Information Plan Of Treatment Date Type Action Status Appointment Ashlee Boucher -2 Month F/U B OOKED History Of Present Illness Encounter Date Complaint History Of Present I llness Generic Primary Care Onset: gradual. Th e problem is severe. Duration: 2 Years. The frequency of pain is daily. Aggravating factors include bending, climbing stairs, driving, exertion, flexion, hyperextension, kneeling, lifting, lying down, prolonged sitting, pushing, rotation, running, standing, stress, turning head, twisting, walking and working. The patient denies aggravating factors such as coughing, defecation, sneezing, stooping, straining and Valsalva. Relieving factors include rest. The patient experiences no relief from acupuncture, cervical collar, cervical traction, cold compresses, exercise, heating pad, ice, injection, lateral bending, manipulation, massage, muscle relaxation techniques, narcotic analgesics, NSAIDs, OTC medications, physical therapy, rotation, sitting, splint, standing, stretching, twisting and walking. Associated symptoms include decreased mobility, difficulty sleeping, muscle spasm and tenderness. Pertinent negatives include bladder dysfunction not spinal related, bladder incontinence, bladder retention, bowel dysfunction not spinal related, bowel incontinence, bowel retention, dermatomic rash, incoordination, joint pain, loss of balance, muscle atrophy, numbness, rash, se xual dysfunction, sexual dysfunction (not spinal related), tingling, weakness and weight loss. Functional Status Date Functional Assessment No Information Medications Administered Medication Instructions Dosage Effective Dates (start - stop) Sta tus Comments No Information Instructions Date Instruction Additional Informati on No Information Assessments Type Assessment Date No Information Goals Health Concern Goal Type Priority Status Date No Information Medical Equipment Description Device [place] Device Identifier Effective Jose D es (start - stop) Status No Information Mental Status Date Cognitive Assessment Orientation - Oriented to ti me, place, person, situation.Normal Orientation Health Concerns Observation Date No Information Concern Status Date No Information Physical Examination Exam Findings Details Musculoskeletal * Cervical spine - [place], Range of motion: mild pain w/ motion. Musculoskeletal Normal Thoracic spine - [place] Inspection and Normal Range of Motion. Lumbar spine - Normal Inspection and Normal Range of Motion. Shoulder - Left: Normal Inspection and Normal Range of Motion, Right: Normal Inspection and Normal Range of Motion. Neck Exam Comments Lower neck tendernes s to palpation. Neck Exam Normal Inspection - Normal. Palpation - Normal. Parotid gland - Normal. Thyroid gland - Normal. Range of motion - Normal. Submandibular lymph nodes - Normal. Cervical lymph nodes - Normal. Neurological Normal Level of consciousne ss - Normal. Orientation - Normal. Psychiatric Normal Orientation - Fitzwilliam ed to time, place, person & situation.
--- OUTSIDE RECORDS SUMMARY | 2021-03-18 18:09 | CCD | Continuity of Care Document ---
Author Author [facility] Address Unknown Phone Unavailable Care Team Providers Care Mechanical Fitter Name Role Phone Christian MANAGER PRESENTATION, Susanne Goldstein Unavailable Unavailable Allergies, Adverse Reactions, [...] immunodeficiency virus [HIV] counseling - [facility] and advice on contraception Other sex counseling Candidiasis of vulva and vagina Other specified noninflammatory disorders of vagina Pruritus vulvae Human immunodeficiency virus [HIV] counseling - Encntr for general adult medical exam w/o abnormal findings Anemia, unspecified Human immunodeficiency virus [HIV] counseling Other sex counseling [facility] for [facility] and advice on contraception Acute vaginitis Encounter for screening for malignant neoplasm of cervix 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 for 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 meter reader 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) (routine) w/o abn findings Encntr screen for infections w sexl mode of transmiss Encounter for screening for human immunodeficiency virus Human immunodeficiency virus [HIV] counseling Other sex counseling [facility] for [facility] and advice on contraception Encounter for surveillance of vagnl ring Encounter for [facility] and advice on contraception Encounter for surveillance of vagnl ring Candidiasis of vulva and vagina Other sex counseling Encounter for [facility] and advice on contraception Encntr for f/u exam aft trtmt for cond [facility] Encounter for test, result positive Encntr screen for infections w sexl mode of transmiss Other sex counseling Encounter for [facility] and advice on contraception Encounter for initial prescription of vagnl ring Encounter for elective termination of Encounter for other specified special examinations Unspecified blood type, Rh positive Problems related to unwanted state, incidental High risk heterosexual behavior Human immunodeficiency virus [HIV] counseling Nausea Other sex counseling Encounter for [facility] and advice on contraception Human immunodeficiency virus [HIV] counseling Candidiasis of vulva and vagina Inapprop chg quantitav hCG in early Other sex counseling Encounter for [facility] and advice on contraception Encntr for f/u exam aft trtmt for cond [facility] malig neoplm Encounter for prescription of emergency contraception Encounter for initial prescription of contraceptive pills Inapprop chg quantitav hCG in early Encounter for elective termination of Encounter for test, result positive Encntr screen for infections w sexl mode of transmiss state, incidental Encounter for blood typing Problems related to unwanted Encounter for other specified special examinations Encounter for [facility] and advice on contraception [...] Provider Providers Copied on Encounter [facility], [address] [place] [address], [id number], [place] tel:[phone] FATOU Rizzo No Information Christian Goldstein. [address] [place], [place], [id number], [place]. tel:[phone] [facility], [address] [place] [address], [id number], [place] tel:[phone] FATOU Alpaugh Unspecified injury of neck, initial encounterPain in left shoulderPain in right shoulderPain in thoracic spine Christian Goldstein. [address], [place], [id number], [place]. tel:[phone] Referring Provider: Susanne Gonzales, [address] [place] [address], [id number]. tel:[phone] [facility], [address] [place] [address], [id number], [place] tel:[phone] [facility] Other sex counselin gEncounter for oth general cnsl and advice on contraceptionEncntr for f/u exam aft trtmt for cond oth than malig neoplm Harshad Pelaez. [address] [place], [place], [id number], [place]. tel:[phone] Referring Provider: Marycarmen Patricia, [address] [place] [address], [id number]. tel:[phone] [facility], [address] [place] [address], [id number], [place] tel:[phone] PPORNY Alpaugh No Information Alona Goldstein. [address], [place], [id number], [place]. tel:[phone] [facility], [address], [place], [id number], [place] tel:[phone] PPORNY Alpaugh Encntr for f/u exam aft trtmt for cond oth than malig neoplmEncounter for oth general cnsl and advice on contraceptionEncounter for surveillance of vagnl ringOther sex counseling Christian Goldstein. [address], [place], [id number], [place]. tel:[phone] Referring Provider: Susanne Gonzales, [address], [place], [id number]. tel:[phone] [facility], [address], [place], [id number], [place] tel:[phone] PPORNY Alpaugh Encounter for pregn delmi test, result positiveProblems related to unwanted pregnancy state, incidentalEncounter for elective termination of pregnancyEncounter for other specified special examinationsUnspecified blood type, Rh positiveEncntr screen for dis of the bld/bld-form org/immun mechnsmOther sex counselingEncounter for oth general cnsl and advice on contraceptionEncntr screen for infections w sexl mode of transmissHigh risk heterosexual behavior Christian Goldstein. [address], [place], [id number], [place]. tel:[phone] Referring Provider: Susanne Gonzales, [address], [place], [id number]. tel:[phone] [facility], [address], [place], [id number], [place] tel:[phone] PPORNY Alpaugh Pelvic and perineal painUnspecified ovarian cyst, unspecified sideEncounter for oth general cnsl and advice on contraceptionEncounter for surveillance of vagnl ringOther sex counselingHuman immunodeficiency virus [HIV] counseling Christian Goldstein. [address] [place] [address], [id number], [place]. tel:[phone] Referring Provider: Susanne Gonzales, [address] [place] [address], [id number]. tel:[phone] [facility], [address] [place] [address], [id number], [place] tel:[phone] PPORNY Alpaugh Encounter for oth g eneral cnsl and advice on contraceptionOther sex counselingCandidiasis of vulva and vaginaOther specified noninflammatory disorders of vaginaPruritus vulvaeHuman immunodeficiency virus [HIV] counseling Dwello Marycarmen duke. [address] [place] [address], [id number], [place]. tel:[phone] Referring Provider: Marycarmen Patricia, [address] [place] [address], [id number]. tel:[phone] [facility], [address] [place] [address], [id number], [place] tel:[phone] PPORNY Alpaugh Encntr for general adult medical exam w/o abnormal findingsAnemia, unspecified Dwello Marycarmen nguyen. [address] [place] [address], [id number], [place]. tel:[phone] Referring Provider: Marycarmen Patricia, [address] [place] [address], [id number]. tel:[phone] [facility], [address] [place] [address], [id number], [place] tel:[phone] PPORNY Alpaugh Human immunodeficie ncy virus [HIV] counselingOther sex counselingEncounter for oth general cnsl and advice on contraceptionAcute vaginitisEncounter for screening for malignant neoplasm of cervix Turner Wade. [address] [place] [address], [id number], [place]. tel:[phone] Referring Provider: Sheri Tompkins, [address] [place], [place], [id number]. tel:[phone] [facility], [address] [place] [address], [id number], [place] tel:[phone] PPNCNY Alpaugh Encntr for electric meter reader 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) (routine) w/o abn findingsEncntr screen for infections w sexl mode of transmissEncounter for screening for human immunodeficiency virusHuman immunodeficiency virus [HIV] counselingOther sex counselingEncounter for oth general cnsl and advice on contraceptionEncounter for surveillance of vagnl ring Harshad Pelaez. [address] [place] [address], [id number], [place]. tel:[phone] Referring Provider: Marycarmen Patricia, [address] [place] [address], [id number]. tel:[phone] [facility], [address] [place] [address], [id number], [place] tel:[phone] PPNCNY Heck Encounter for oth g eneral cnsl and advice on contraceptionEncounter for surveillance of vagnl ringCandidiasis of vulva and vagina Alvina Borges. [address] [place] [address], [id number], [place]. tel:[phone] Referring Provider: Psuhpa Tomlinson, [address] [place] [address], [id number]. tel:[phone] [facility], [address] [place] [address], [id number], [place] tel:[phone] PPNCNY Alpaugh Other sex counselin gEncounter for oth general cnsl and advice on contraceptionEncntr for f/u exam aft trtmt for cond oth than malig neoplm Paula Navarro. [address] [place], [place], [id number], [place]. tel:[phone] Referring Provider: Melanie Mitchell, [address] [place], [place], [id number]. tel:[phone] [facility], [address] [place] [address], [id number], [place] tel:[phone] PPNCNY Alpaugh Encounter for pregn delmi test, result positiveEncntr screen for infections w sexl mode of transmissOther sex counselingEncounter for oth general cnsl and advice on contraceptionEncounter for initial prescription of vagnl ringEncounter for elective termination of pregnancyEncounter for other specified special examinationsUnspecified blood type, Rh positiveProblems related to unwanted pregnancy state, incidentalHigh risk heterosexual behaviorHuman immunodeficiency virus [HIV] counselingNausea Bill Amin. [address] [place] [address], [id number], [place]. tel:[phone] Referring Provider: Eloisa Khan, [address], [place], [id number]. tel:[phone] [facility], [address] [place] [address], [id number], [place] tel:[phone] PPNCNY Alpaugh Other sex counselin gEncounter for oth general cnsl and advice on contraceptionHuman immunodeficiency virus [HIV] counselingCandidiasis of vulva and vagina Paula rios [address] [place] [address], [id number], [place]. tel:[phone] Referring Provider: Melanie Mitchell, [address] [place] [address], [id number]. tel:[phone] [facility], [address] [place] [address], [id number], [place] tel:[phone] PPNCNY Alpaugh Inapprop chg quanti tav hCG in early Paula Navarro. [address] [place], [place], [id number], [place]. tel:[phone] Referring Provider: Melanie Mitchell, [address] [place], [place], [id number]. tel:[phone] [facility], [address] [place] [address], [id number], [place] tel:[phone] [facility] Other sex counselin gEncounter for oth general cnsl and advice on contraceptionEncntr for f/u exam aft trtmt for cond oth than malig neoplmEncounter for prescription of emergency contraception Encounter for initial prescription of contraceptive pillsInapprop chg quantitav hCG in early Bill Amin. [address] [place] [address], [id number], . tel:[phone] Referring Provider: Eloisa Khan, [address] [place] [address], [id number]. tel:[phone] [facility], [address] [place] [address], [id number], [place] tel:[phone] [facility] Encounter for elect chava termination of Bill Amin. [address] [place] [address], [id number], [place]. tel:[phone] Referring Provider: Eloisa Khan, [address], [place], [id number]. tel:[phone] [facility], [address] [place] [address], [id number], [place] tel:[phone] PPORNY Alpaugh Encounter for pregn delmi test, result positiveEncntr [...] examinationEncounter for other preprocedural examination Paula Navarro. [address] [place] [address], [id number], [place]. tel:[phone] Referring Provider: Melanie Mitchell, [address] [place] [address], [id number]. tel:[phone] Family History Family Member Diagnosis Age At [...] alliance party ID Authorization(s ) Medicaid MC [id number] Social History Type Description Quantity Date Captured [...] Date Type Action Status Appointment Ashlee Boucher -Annual, 03/16 Previously BOOKED Appointment Ashlee Boucher -2 Month F/U [...] Date No Information Medical Equipment Description Device Garwood Device Identifier Effective Jose D es (start - stop) Status No Information Mental Status Date Cognitive Assessment No Information Health Concerns Observation Date No Information Concern Status Date No Information Physical Examination Exam Findings Details No Information
--- OUTSIDE RECORDS SUMMARY | 2021-03-18 18:10 | CCD | Continuity of Care Document ---
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) w/o abn findings Encntr [...] and vagina Other sex counseling Encounter for ot general cnsl and advice on contraception Encntr for f/u exam aft trtmt for cond [facility] than [facility] neopl Encounter for test, result positive Encntr screen for infections w sexl mode of transmiss Other sex counseling Encounter for ot general cnsl and advice on contraception Encounter for initial prescription of vagnl ring Encounter for elective termination of Encounter for other specified special examinations Unspecified blood type, Rh positive Problems related to unwanted state, incidental High risk heterosexual behavior Human immunodeficiency virus [HIV] counseling Nausea Other sex counseling Encounter for ot general cnsl and advice on contraception Human immunodeficiency virus [HIV] counseling Candidiasis of vulva and vagina Inapprop chg quantitav hCG in early Other sex counseling Encounter for ot general cnsl and advice on contraception Encntr for f/u exam aft trtmt for cond [facility] than [facility] neopl Encounter for prescription of emergency contraception Encounter for initial prescription of contraceptive pills Inapprop chg quantitav hCG in early Encounter for elective termination of Encounter for test, result positive Encntr screen for infections w sexl mode of transmiss state, incidental Encounter for blood typing Problems related to unwanted Encounter for other specified special examinations Encounter for [facility] general cnsl and advice on contraception High risk heterosexual behavior Human immunodeficiency virus [HIV] counseling Encounter for screening for human immunodeficiency virus Other sex counseling Less than 8 weeks gestation of Encounter for preprocedural laboratory examination Encounter for other preprocedural examination Procedures Procedure Date OFFICE VISIT, EST. Post AB HCS Without Test CVR Blood Pressure CVR Med.Svc. Height/Weight CVR Supervisor Liquefaction.Svc. Contraceptive CVR Supervisor Liquefaction.Svc. STI / H Results Test Name Date and Time Measure Units Reference Range Abnormal Flag St atus Comments No Information Advance Directives Directive Yes / No Effective Date File Name No Information Encounters Encounter Description Practice Location Reason(s) For Visit Diagnose s Date Provider Providers Copied on Encounter OFFICE VISIT, EST. Post AB [facility], [address] [place] [address], [id number], [place] tel:[phone] [facility] [place] [facility] Post (chief complaint) Other sex counselingEncounter for oth ge neral cnsl and advice on contraceptionEncntr for f/u exam aft trtmt for cond oth than malig neoplm Harshad Pelaez. [address] [place] [address], [id number], [place]. tel:[phone] Referring Provider: Marycarmen Patricia, [address] [place] [address], [id number]. tel:[phone] [facility] [address] [place] [address], [id number], [place] tel:[phone] [facility] [place] No Information Alona Goldstein. [address] [place] [address], [id number], [place]. tel:[phone] [facility], [address] [place] [address], [id number], [place] tel:[phone] [facility] [place] Encntr for f/u exam aft trtmt for cond oth than malig neoplmEncounter for oth general cnsl and advice on contraceptionEncounter for surveillance of vagnl ringOther sex counseling Christian Goldstein. [address], [place], [id number], [place]. tel:[phone] Referring Provider: Susanne Gonzales, [address] [place], [place], [id number]. tel:[phone] [facility], [address], [place], [id number], [place] tel:[phone] [facility] Encounter for pregn delmi test, result positiveProblems related to unwanted pregnancy state, incidentalEncounter for elective termination of pregnancyEncounter for other specified special examinationsUnspecified blood type, Rh positiveEncntr screen for dis of the bld/bld-form org/immun mechnsmOther sex counselingEncounter for oth general cnsl and advice on contraceptionEncntr screen for infections w sexl mode of transmissHigh risk heterosexual behavior Christian Goldstein. [address], [place], [id number], [place]. tel:[phone] Referring Provider: Susanne Gonzales, [address], [place], [id number]. tel:[phone] [facility], [address] [place] [address], [id number], [place] tel:[phone] [facility] Pelvic and perineal painUnspecified ovarian cyst, unspecified sideEncounter for oth general cnsl and advice on contraceptionEncounter for surveillance of vagnl ringOther sex counselingHuman immunodeficiency virus [HIV] counseling Christian Goldstein. [address], [place], [id number], [place]. tel:[phone] Referring Provider: Susanne Gonzales, [address], [place], [id number]. tel:[phone] [facility], [address] [place] [address], [id number], [place] tel:[phone] [facility] Encounter for oth g eneral cnsl and advice on contraceptionOther sex counselingCandidiasis of vulva and vaginaOther specified noninflammatory disorders of vaginaPruritus vulvaeHuman immunodeficiency virus [HIV] counseling Dwello Marycarmen duke. [address] [place] [address], [id number], . tel:[phone] Referring Provider: Marycarmen Patricia, [address] [place] [address], [id number]. tel:[phone] [facility], [address] [place] [address], [address] [place] [address], [place] tel:[phone] [facility] [place] Encntr for general adult medical exam w/o abnormal findingsAnemia, unspecified Dwello Marycarmen nguyen. [address] [place] [address], [address] [place] [address], . tel:[phone] Referring Provider: Marycarmen Patricia, [address] [place] [address], [address] [place] [address]. tel:[phone] [facility], [address] [place] [address], [id number], [place] tel:[phone] [facility] Human immunodeficie ncy virus [HIV] counselingOther sex counselingEncounter for oth general cnsl and advice on contraceptionAcute vaginitisEncounter for screening for malignant neoplasm of cervix Turner Wade. [address] [place] [address], [id number], . tel:[phone] Referring Provider: Sheri Tompkins, [address] [place] [address], [id number]. 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 [address] [place] [address], [id number], [place]. tel:[phone] Referring Provider: Marycarmen Pelaez Harshad, [address] [place] [address], [id number]. tel:[phone] [facility], [address] [place] [address], [id number], [place] tel:[phone] [facility] Encounter for oth g eneral cnsl and advice on contraceptionEncounter for surveillance of vagnl ringCandidiasis of vulva and vagina Alvina Borges. [address] [place] [address], [id number], [place]. tel:[phone] Referring Provider: Pushpa Tomlinson, [address] [place] [address], [id number]. tel:[phone] [facility], [address] [place] [address], [id number], [place] tel:[phone] [facility] [place] Other sex counselin gEncounter for oth general cnsl and advice on contraceptionEncntr for f/u exam aft trtmt for cond oth than malig neoplm Paula Navarro. [address] [place] [address], [id number], [place]. tel:[phone] Referring Provider: Melanie Mitchell, [address] [place] [address], [id number]. tel:[phone] [facility], [address] [place] [address], [id number], [place] tel:[phone] [facility] Encounter for pregn delmi test, result positiveEncntr screen for infections w sexl mode of transmissOther sex counselingEncounter for oth general cnsl and advice on contraceptionEncounter for initial prescription of vagnl ringEncounter for elective termination of pregnancyEncounter for other specified special examinationsUnspecified blood type, Rh positiveProblems related to unwanted pregnancy state, incidentalHigh risk heterosexual behaviorHuman immunodeficiency virus [HIV] counselingNausea Bill Amin. [address] [place] [address], [id number], . tel:[phone] Referring Provider: Eloisa Khan, [address], [place], [id number]. tel:[phone] [facility], [address] [place] [address], [id number], [place] tel:[phone] [facility] [place] Other sex counselin gEncounter for oth general cnsl and advice on contraceptionHuman immunodeficiency virus [HIV] counselingCandidiasis of vulva and vagina Paula rios [address] [place] [address], [id number], . tel:[phone] Referring Provider: Melanie Mitchell, [address] [place] [address], [id number]. tel:[phone] [facility], [address] [place] [address], [id number], [place] tel:[phone] [facility] [place] Inapprop chg quanti tav hCG in early Paula Navarro. [address] [place] [address], [id number], . tel:[phone] Referring Provider: Melanie Mitchell, [address] [place], [place], [id number]. tel:[phone] [facility], [address] [place] [address], [id number], [place] tel:[phone] [facility] [place] Other sex counselin gEncounter for oth general cnsl and advice on contraceptionEncntr for f/u exam aft trtmt for cond oth than malig neoplmEncounter for prescription of emergency contraception Encounter for initial prescription of contraceptive pillsInapprop chg quantitav hCG in early Bill Amin. [address] [place] [address], [id number], . tel:[phone] Referring Provider: Eloisa Khan, [address] [place] [address], [id number]. tel:[phone] [facility], [address] [place] [address], [id number], tel:[phone] [facility] Encounter for elect chava termination of Bill Amin. [address] [place] [address], [id number], [place]. tel:[phone] Referring Provider: Eloisa Khan, [address], [place], [id number]. tel:[phone] [facility], [address] [place] [address], [id number], [place] tel:[phone] [facility] Encounter for pregn delmi test, result positiveEncntr [...] examinationEncounter for other preprocedural examination Paula Navarro. [address] [place] [address], [id number], [place]. tel:[phone] Referring Provider: Melanie Mitchell, [address] [place] [address], [id number]. tel:[phone] Family History Family Member Diagnosis Age At [...] type Covered libertarian ID Authorization(s ) Medicaid [id number] Social History Type Description Quantity Date Captured [...] BMI percentile Pulse Ox In haled Ox 3:07 PM 63.00 in Chief Complaint And Reason For Visit Most recent encounter only, dated '01/23/2021 15:00'. Medication Post (chief complaint) Reason For Referral Reason For Referral No Information Plan Of Treatment Date Type Action Status Appointment [place] F[facility]u BOOKED History Of Present Illness Encounter Date Complaint History Of Present I llness No Information Functional Status Date Functional Assessment No Information Medications Administered Medication Instructions Dosage Effective Dates (start - stop) Sta tus Comments No Information Instructions Date Instruction Additional Informati on No Information Assessments Type Assessment Date assessment Other sex counseling assessment Encounter for oth general cnsl and advic e on contraception assessment Encntr for f/u exam aft trtmt for cond o th than malig neoplm Goals Health Concern Goal Type Priority Status Date No Information Medical Equipment Description Device Yeaddiss Device Identifier Effective Jose D es (start - stop) Status No Information Mental Status Date Cognitive Assessment Orientation - Oriented to ti me, place, person, situation.Normal Orientation Health Concerns Observation Date No Information Concern Status Date No Information Physical Examination Exam Findings Details Neurological Normal Level of consciousne ss - Normal. Orientation - Normal. Psychiatric Normal Orientation - [place] ed to time, place, person & situation.
--- OUTSIDE RECORDS SUMMARY | 2021-03-18 18:10 | CCD | Continuity of Care Document ---
Author Author [facility] Organization [facility] Address Unknown Phone Unavailable Care Team Providers Care Flatwork Washer Name Role Phone Dwello Marycarmen MAYA Unavailable Unavailable Allergies, Adverse Reactions, Alerts Substance Reaction Status Criticality Penicillins Hives / Skin Rash Active No Information Medications Medication Instructions Dosage Effective Dates (start - stop) Sta tus Comments NuvaRing 0.12 mg-0.015 mg/24 hr vaginal 1 ring inserte d vaginally x 3weeks, then 1 week out - Active Probiotic 100 billion cell capsule - A ctive NuvaRing 0.12 mg-0.015 mg/24 hr vaginal 1 ring inserte d vaginally x 3weeks, then 1 week out - No Longer Active Problems Condition Effective [...] immunodeficiency virus [HIV] counseling - Encounter for [facility] cnsl and advice on contraception Other sex counseling Candidiasis of vulva and vagina Other specified noninflammatory disorders of vagina Pruritus vulvae Human immunodeficiency virus [HIV] counseling - Encntr for general adult medical exam w/o abnormal findings Anemia, unspecified Human immunodeficiency virus [HIV] counseling Other sex counseling Encounter for [facility] cnsl and advice on contraception Acute vaginitis Encounter for screening for malignant neoplasm of cervix 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 abn findings Encntr screen for infections w sexl mode of transmiss Encounter for screening for human immunodeficiency virus Human immunodeficiency virus [HIV] counseling Other sex counseling Encounter for [facility] cnsl and advice on contraception Encounter for surveillance of vagnl ring Encounter for [facility] cnsl and advice on contraception Encounter for surveillance of vagnl ring Candidiasis of vulva and vagina Other sex counseling Encounter for [facility] cnsl and advice on contraception Encntr for f/u exam aft trtmt for cond [facility] than mal neopl Encounter for test, result positive Encntr screen for infections w sexl mode of transmiss Other sex counseling Encounter for [facility] cnsl and advice on contraception Encounter for initial prescription of vagnl ring Encounter for elective termination of Encounter for other specified special examinations Unspecified blood type, Rh positive Problems related to unwanted state, incidental High risk heterosexual behavior Human immunodeficiency virus [HIV] counseling Nausea Other sex counseling Encounter for [facility] cnsl and advice on contraception Human immunodeficiency virus [HIV] counseling Candidiasis of vulva and vagina Inapprop chg quantitav hCG in early Other sex counseling Encounter for [facility] cnsl and advice on contraception Encntr for f/u exam aft trtmt for cond [facility] than mal neoplm Encounter for prescription of emergency contraception Encounter for initial prescription of contraceptive pills Inapprop chg quantitav hCG in early Encounter for elective termination of Encounter for test, result positive Encntr screen for infections w sexl mode of transmiss state, incidental Encounter for blood typing Problems related to unwanted Encounter for other specified special examinations Encounter for [facility] cnsl and advice on contraception High [...] Provider Providers Copied on Encounter [facility], [address], [place], [id number], [place] tel:[phone] [facility] [place] Other sex counselin gEncounter for oth general cnsl and advice on contraceptionEncntr for f/u exam aft trtmt for cond oth than malig neoplm Harshad Pelaez. [address], [place], [id number], . tel:[phone] Referring Provider: Marycarmen Patricia, [address] [place] [address], [id number]. tel:[phone] [facility] [address], [place], [id number], [place] tel:[phone] [facility] [place] No Information Alona Goldstein. [address], [place], [id number], [place]. tel:[phone] [facility] [place], [address], [place], [id number], [place] tel:[phone] [facility] [place] No Information Lizbeth Latanya. [address], [place], [id number], [place]. tel:[phone] [facility] [place], [address], [place], [id number], [place] tel:[phone] [facility] [place] Encntr for f/u exam aft trtmt for cond oth than malig neoplmEncounter for oth general cnsl and advice on contraceptionEncounter for surveillance of vagnl ringOther sex counseling Christian Goldstein. [address], [place], [id number], [place]. tel:[phone] Referring Provider: Susanne Gonzales, [address], [place], [id number]. tel:[phone] [facility], [address], [place], [id number], [place] tel:[phone] [facility] Encounter for pregn delmi test, result positiveProblems related to unwanted pregnancy state, incidentalEncounter for elective termination of pregnancyEncounter for other specified special examinationsUnspecified blood type, Rh positiveEncntr screen for dis of the bld/bld-form org/immun mechnsmOther sex counselingEncounter for oth general cnsl and advice on contraceptionEncntr screen for infections w sexl mode of transmissHigh risk heterosexual behavior Christian Goldstein. [address], [place], [id number], [place]. tel:[phone] Referring Provider: Susanne Gonzales, [address], [place], [id number]. tel:[phone] [facility], [address], [place], [id number], [place] tel:[phone] [facility] Pelvic and perineal painUnspecified ovarian cyst, unspecified sideEncounter for ot general cnsl and advice on contraceptionEncounter for surveillance of vagnl ringOther sex counselingHuman immunodeficiency virus [HIV] counseling Christian Goldstein. [address], [place], [id number], [place]. tel:[phone] Referring Provider: Susanne Gonzales, [address], [place], [id number]. tel:[phone] [facility], [address], [place], [id number], [place] tel:[phone] [facility] [place] Encounter for oth g eneral cnsl and advice on contraceptionOther sex counselingCandidiasis of vulva and vaginaOther specified noninflammatory disorders of vaginaPruritus vulvaeHuman immunodeficiency virus [HIV] counseling Dwello Marycarmen duke. [address] [place] [address], [id number], [place]. tel:[phone] Referring Provider: Marycarmen Patricia, [address] [place] [address], [id number]. tel:[phone] [facility], [address] [place] [address], [id number], [place] tel:[phone] [facility] [place] Encntr for general adult medical exam w/o abnormal findingsAnemia, unspecified Dwello Marycarmen nguyen. [address] [place] [address], [id number], [place]. tel:[phone] Referring Provider: Marycarmen aPtricia, [address] [place] [address], [id number]. tel:[phone] [facility], [address] [place] [address], [id number], [place] tel:[phone] [facility] Human immunodeficie ncy virus [HIV] counselingOther sex counselingEncounter for oth general cnsl and advice on contraceptionAcute vaginitisEncounter for screening for malignant neoplasm of cervix Turner Wade. [address] [place] [address], [id number], [place]. tel:[phone] Referring Provider: Sheri Tompkins, [address], [place], [id number]. 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 [address] [place] [address], [id number], [place]. tel:[phone] Referring Provider: Marycarmen Patricia, [address] [place] [address], [id number]. tel:[phone] [facility], [address] [place] [address], [id number], [place] tel:[phone] [facility] [place] Encounter for oth g eneral cnsl and advice on contraceptionEncounter for surveillance of vagnl ringCandidiasis of vulva and vagina Alvina Borges. [address] [place] [address], [id number], [place]. tel:[phone] Referring Provider: Pushpa Tomlinson, [address] [place] [address], [id number]. tel:[phone] [facility], [address] [place] [address], [id number], [place] tel:[phone] [facility] [place] Other sex counselin gEncounter for oth general cnsl and advice on contraceptionEncntr for f/u exam aft trtmt for cond oth than malig neoplm Paula Navarro. [address] [place] [address], [id number], [place]. tel:[phone] Referring Provider: Melanie Mitchell, [address] [place] [address], [id number]. tel:[phone] [facility], [address] [place] [address], [id number], [place] tel:[phone] [facility] [place] Encounter for pregn delmi test, result positiveEncntr screen for infections w sexl mode of transmissOther sex counselingEncounter for oth general cnsl and advice on contraceptionEncounter for initial prescription of vagnl ringEncounter for elective termination of pregnancyEncounter for other specified special examinationsUnspecified blood type, Rh positiveProblems related to unwanted pregnancy state, incidentalHigh risk heterosexual behaviorHuman immunodeficiency virus [HIV] counselingNausea Bill Amin. [address] [place] [address], [id number], . tel:[phone] Referring Provider: Eloisa Khan, [address] [place], [place], [id number]. tel:[phone] [facility], [address] [place] [address], [id number], tel:[phone] [facility] [place] Other sex counselin gEncounter for oth general cnsl and advice on contraceptionHuman immunodeficiency virus [HIV] counselingCandidiasis of vulva and vagina Paula rios [address] [place] [address], [id number], [place]. tel:[phone] Referring Provider: Melanie Mitchell, [address] [place] [address], [id number]. tel:[phone] [facility], [address] [place] [address], [id number], [place] tel:[phone] [facility] [place] Inapprop chg quanti tav hCG in early Paula Navarro. [address] [place] [address], [id number], [place]. tel:[phone] Referring Provider: Melanie Mitchell, [address] [place], [place], [id number]. tel:[phone] [facility], [address] [place] [address], [id number], tel:[phone] [facility] [place] Other sex counselin gEncounter for oth general cnsl and advice on contraceptionEncntr for f/u exam aft trtmt for cond oth than malig neoplmEncounter for prescription of emergency contraception Encounter for initial prescription of contraceptive pillsInapprop chg quantitav hCG in early Bill Amin. [address] [place] [address], [id number], . tel:[phone] Referring Provider: Eloisa Khan, [address] [place] [address], [id number]. tel:[phone] [facility] [address], [id number], [place] tel:[phone] [facility] Encounter for elect chava termination of Bill Amin. [address] [place] [address], [id number], . tel:[phone] Referring Provider: Eloisa Khan, [address], [place], [id number]. tel:[phone] [facility], [address] [place] [address], [id number], [place] tel:[phone] [facility] Encounter for pregn delmi test, result positiveEncntr [...] examinationEncounter for other preprocedural examination Paula Navarro. [address] [place] [address], [id number], [place]. tel:[phone] Referring Provider: Melanie Mitchell, [address] [place] [address], [address] [place] [address]. tel:[phone] Family History Family Member Diagnosis Age At [...] Covered libertarian ID Authorization(s ) Medicaid [id number] Social History Type Description Quantity Date Captured [...] Date Type Action Status Appointment Ashlee Boucher F/u BOOKED History Of Present Illness Encounter [...] Date No Information Medical Equipment Description Device [place] Device Identifier Effective Jose D es (start - stop) Status No Information Mental Status Date Cognitive Assessment No Information Health Concerns Observation Date No Information Concern Status Date No Information Physical Examination Exam Findings Details No Information
--- OUTSIDE RECORDS SUMMARY | 2021-03-18 18:10 | CCD | Continuity of Care Document ---
Author [facility] [place] Organization [facility] Address [address] [place] [address] Phone Care Team Providers Care Brazer Assembler Name Role Phone Dwello Marycarmen MAYA Unavailable [...] Unspecified ovarian cyst, unspecified side Encounter for [facility] cnsl and advice on contraception Encounter for surveillance of vagnl ring Other sex counseling Human immunodeficiency virus [HIV] counseling - Encounter for 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 cns[facility] and advice on contraception Encounter for surveillance of vagnl ring Encounter for [facility] cns[facility] and advice on contraception Encounter for surveillance of vagnl ring Candidiasis of vulva and vagina Other sex counseling Encounter for [facility] cns[facility] and advice on contraception Encntr for f/u exam aft trtmt for cond [facility] Encounter for test, result positive Encntr screen for infections w sexl mode of transmiss Other sex counseling Encounter for [facility] cns[facility] and advice on contraception Encounter for initial prescription of vagnl ring Encounter for elective termination of Encounter for other specified special examinations Unspecified blood type, Rh positive Problems related to unwanted state, incidental High risk heterosexual behavior Human immunodeficiency virus [HIV] counseling Nausea Other sex counseling Encounter for [facility] cns[facility] and advice on contraception Human immunodeficiency virus [HIV] counseling Candidiasis of vulva and vagina Inapprop chg quantitav hCG in early Other sex counseling Encounter for [facility] cns[facility] and advice on contraception Encntr for f/u exam aft trtmt for cond [facility] than mal neoplm Encounter for prescription of emergency contraception Encounter for initial prescription of contraceptive pills Inapprop chg quantitav hCG in early Encounter for elective termination of Encounter for test, result positive Encntr screen for infections w sexl mode of transmiss state, incidental Encounter for blood typing Problems related to unwanted Encounter for other specified special examinations Encounter for oth general cnsl and advice on contraception High [...] Encounter [facility], [address] [place] [address], [id number], [place] tel:[phone] [facility] [place] Other sex counselin gEncounter for oth general cnsl and advice on contraceptionEncntr for f/u exam aft trtmt for cond oth than malig neoplm Harshad Pelaez. [address] [place] [address], [id number], [place]. tel:[phone] Referring Provider: Marycarmen Patricia, [address] [place] [address], [id number]. tel:[phone] [facility], [address] [place] [address], [id number], [place] tel:[phone] [facility] [place] No Information Alona Goldstein. [address] [place] [address], [id number], [place]. tel:[phone] [facility], [address] [place] [address], [id number], [place] tel:[phone] [facility] [place] Encntr for f/u exam aft trtmt for cond oth than malig neoplmEncounter for oth general cnsl and advice on contraceptionEncounter for surveillance of vagnl ringOther sex counseling Christian Goldstein. [address] [place] [address], [id number], [place]. tel:[phone] Referring Provider: Susanne Gonzlaes, [address] [place], [place], [id number]. tel:[phone] [facility], [address] [place] [address], [id number], [place] tel:[phone] [facility] [place] Encounter for pregn delmi test, result positiveProblems related to unwanted pregnancy state, incidentalEncounter for elective termination of pregnancyEncounter for other specified special examinationsUnspecified blood type, Rh positiveEncntr screen for dis of the bld/bld-form org/immun mechnsmOther sex counselingEncounter for oth general cnsl and advice on contraceptionEncntr screen for infections w sexl mode of transmissHigh risk heterosexual behavior Christian Goldstein. [address] [place], [place], [id number], [place]. tel:[phone] Referring Provider: Susanne Gonzales, [address] [place] [address], [id number]. tel:[phone] [facility], [address] [place] [address], [id number], [place] tel:[phone] [facility] Pelvic and perineal painUnspecified ovarian cyst, unspecified sideEncounter for oth general cnsl and advice on contraceptionEncounter for surveillance of vagnl ringOther sex counselingHuman immunodeficiency virus [HIV] counseling Christian Goldstein. [address] [place], [place], [id number], [place]. tel:[phone] Referring Provider: Susanne Gonzales, [address] [place], [place], [id number]. tel:[phone] [facility], [address] [place] [address], [id number], [place] tel:[phone] [facility] [place] Encounter for oth g eneral cnsl and advice on contraceptionOther sex counselingCandidiasis of vulva and vaginaOther specified noninflammatory disorders of vaginaPruritus vulvaeHuman immunodeficiency virus [HIV] counseling Dwello Marycarmen duke. [address] [place] [address], [id number], [place]. tel:[phone] Referring Provider: Marycarmen Patricia, [address] [place] [address], [id number]. tel:[phone] [facility], [address] [place] [address], [id number], [place] tel:[phone] [facility] Encntr for general adult medical exam w/o abnormal findingsAnemia, unspecified Dwello Marycarmen nguyen. [address] [place] [address], [id number], [place]. tel:[phone] Referring Provider: Marycarmen Patricia, [address] [place] [address], [id number]. tel:[phone] [facility], [address] [place] [address], [id number], [place] tel:[phone] [facility] Human immunodeficie ncy virus [HIV] counselingOther sex counselingEncounter for oth general cnsl and advice on contraceptionAcute vaginitisEncounter for screening for malignant neoplasm of cervix Turner Wade. [address] [place] [address], [id number], [place]. tel:[phone] Referring Provider: Sheri Tompkins, [address] [place] [address], [id number]. 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 [address] [place] [address], [id number], [place]. tel:[phone] Referring Provider: Marycarmen Patricia, [address] [place] [address], [id number]. tel:[phone] [facility], [address] [place] [address], [id number], [place] tel:[phone] [facility] [place] Encounter for oth g eneral cnsl and advice on contraceptionEncounter for surveillance of vagnl ringCandidiasis of vulva and vagina Alvina Katerina. [address] [place] [address], [id number], [place]. tel:[phone] Referring Provider: Pushpa Tomlinson, [address] [place] [address], [id number]. tel:[phone] [facility], [address] [place] [address], [id number], [place] tel:[phone] [facility] Other sex counselin gEncounter for oth general cnsl and advice on contraceptionEncntr for f/u exam aft trtmt for cond oth than malig neoplm Paula Navarro. [address] [place] [address], [id number], [place]. tel:[phone] Referring Provider: Melanie Mitchell, [address] [place] [address], [id number]. tel:[phone] [facility], [address] [place] [address], [id number], [place] tel:[phone] [facility] [place] Encounter for pregn delmi test, result positiveEncntr screen for infections w sexl mode of transmissOther sex counselingEncounter for oth general cnsl and advice on contraceptionEncounter for initial prescription of vagnl ringEncounter for elective termination of pregnancyEncounter for other specified special examinationsUnspecified blood type, Rh positiveProblems related to unwanted pregnancy state, incidentalHigh risk heterosexual behaviorHuman immunodeficiency virus [HIV] counselingNausea Bill Amin. [address] [place] [address], [id number], . tel:[phone] Referring Provider: Eloisa Khan, [address] [place], [place], [id number]. tel:[phone] [facility], [address] [place] [address], [id number], tel:[phone] [facility] [place] Other sex counselin gEncounter for oth general cnsl and advice on contraceptionHuman immunodeficiency virus [HIV] counselingCandidiasis of vulva and vagina Paula gordon. [address] [place] [address], [id number], . tel:[phone] Referring Provider: Melanie Mitchell, [address] [place] [address], [id number]. tel:[phone] [facility], [address] [place] [address], [id number], [place] tel:[phone] [facility] [place] Inapprop chg quanti tav hCG in early Paula Navarro. [address] [place] [address], [id number], . tel:[phone] Referring Provider: Melanie Mitchell, [address] [place] [address], [id number]. tel:[phone] [facility], [address] [place] [address], [id number], [place] tel:[phone] [facility] [place] Other sex counselin gEncounter for oth general cnsl and advice on contraceptionEncntr for f/u exam aft trtmt for cond oth than malig neoplmEncounter for prescription of emergency contraception Encounter for initial prescription of contraceptive pillsInapprop chg quantitav hCG in early Bill Amin. [address] [place] [address], [id number], [place]. tel:[phone] Referring Provider: Eloisa Khan, [address] [place] [address], [id number]. tel:[phone] [facility], [address] [place] [address], [id number], tel:[phone] [facility] Encounter for elect chava termination of Bill Amin. [address] [place] [address], [id number], . tel:[phone] Referring Provider: Eloisa Khan, [address] [place], [place], [id number]. tel:[phone] [facility], [address] [place] [address], [id number], [place] [phone] [facility] Encounter for pregn delmi test, result positiveEncntr [...] examinationEncounter for other preprocedural examination Paula Navarro. [address] [place] [address], [id number], . tel:[phone] Referring Provider: Melanie Mitchell, [address] [place] [address], [id number]. tel:[phone] Family History Family Member Diagnosis Age At [...] Information Payers Payer name Insurance type Covered constitution party ID Authorization(s ) Medicaid MC [id number] Social History Type Description Quantity Date Captured [...] Date No Information Medical Equipment Description Device [place] Device Identifier Effective Jose D es (start - stop) Status No Information Mental Status Date Cognitive Assessment No Information Health Concerns Observation Date No Information Concern Status Date No Information Physical Examination Exam Findings Details No Information
--- OUTSIDE RECORDS SUMMARY | 2021-03-18 18:10 | CCD | Continuity of Care Document ---
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) (routine) w/o abn findings Encntr [...] and vagina Other sex counseling Encounter for [facility] cnsl and advice on contraception Encntr for f/u exam aft trtmt for cond [facility] Encounter for test, result positive Encntr [...] counseling Nausea Other sex counseling Encounter for [facility] general cnsl and advice on contraception Human immunodeficiency virus [HIV] counseling Candidiasis of vulva and vagina Inapprop chg quantitav hCG in early Other sex counseling Encounter for [facility] general cnsl and advice on contraception Encntr for f/u exam aft trtmt for cond [facility] Encounter for prescription of emergency contraception Encounter for initial prescription of contraceptive pills Inapprop chg quantitav hCG in early Encounter for elective termination of Encounter for test, result positive Encntr screen for infections w sexl mode of transmiss state, incidental Encounter for blood typing Problems related to unwanted Encounter for other specified special examinations Encounter for [facility] general cnsl and advice on contraception High [...] Provider Providers Copied on Encounter [facility], [address] [place] [address], [id number], [place] tel:[phone] [facility] [place] Other sex counselin gEncounter for oth general cnsl and advice on contraceptionEncntr for f/u exam aft trtmt for cond oth than malig neoplm Harshad Pelaez. [address] [place] [address], [id number], [place]. tel:[phone] Referring Provider: Marycarmen Patricia, [address] [place] [address], [id number]. tel:[phone] [facility], [address] [place] [address], [id number], [place] tel:[phone] [facility] [place] No Information D wello Marycarmen Pelaez. [address] [place] [address], [id number], [place]. tel:[phone] [facility], [address] [place] [address], [id number], [place] tel:[phone] [facility] [place] No Information Alona Goldstein. [address] [place], [place], [id number], [place]. tel:[phone] [facility], [address] [place] [address], [id number], [place] tel:[phone] [facility] [place] Encntr for f/u exam aft trtmt for cond oth than malig neoplmEncounter for oth general cnsl and advice on contraceptionEncounter for surveillance of vagnl ringOther sex counseling Christian Goldstein. [address] [place] [address], [id number], [place]. tel:[phone] Referring Provider: Susanne Gonzales, [address] [place], [place], [id number]. tel:[phone] [facility], [address] [place], [place], [id number], [place] tel:[phone] [facility] Encounter for pregn delmi test, result positiveProblems related to unwanted pregnancy state, incidentalEncounter for elective termination of pregnancyEncounter for other specified special examinationsUnspecified blood type, Rh positiveEncntr screen for dis of the bld/bld-form org/immun mechnsmOther sex counselingEncounter for oth general cnsl and advice on contraceptionEncntr screen for infections w sexl mode of transmissHigh risk heterosexual behavior Christian Goldstein. [address] [place], [place], [id number], [place]. tel:[phone] Referring Provider: Susanne oGnzales, [address] [place], [place], [id number]. tel:[phone] [facility], [address] [place] [address], [id number], [place] tel:[phone] [facility] Pelvic and perineal painUnspecified ovarian cyst, unspecified sideEncounter for oth general cnsl and advice on contraceptionEncounter for surveillance of vagnl ringOther sex counselingHuman immunodeficiency virus [HIV] counseling Christian Goldstein. [address] [place], [place], [id number], [place]. tel:[phone] Referring Provider: Susanne Gonzales, [address] [place], [place], [id number]. tel:[phone] [facility], [address] [place] [address], [id number], [place] tel:[phone] [facility] Encounter for oth g eneral cnsl and advice on contraceptionOther sex counselingCandidiasis of vulva and vaginaOther specified noninflammatory disorders of vaginaPruritus vulvaeHuman immunodeficiency virus [HIV] counseling Dwello Marycarmen duke. [address] [place] [address], [id number], [place]. tel:[phone] Referring Provider: Marycarmen Patricia, [address] [place] [address], [id number]. tel:[phone] [facility], [address] [place] [address], [id number], [place] tel:[phone] [facility] [place] Encntr for general adult medical exam w/o abnormal findingsAnemia, unspecified Dwelldemetrius nguyen. [address] [place] [address], [id number], [place]. tel:[phone] Referring Provider: Marycarmen Patricia, [address] [place] [address], [address] [place] [address]. tel:[phone] [facility], [address] [place] [address], [id number], [place] tel:[phone] [facility] [place] Human immunodeficie ncy virus [HIV] counselingOther sex counselingEncounter for oth general cnsl and advice on contraceptionAcute vaginitisEncounter for screening for malignant neoplasm of cervix Turner Wade. [address] [place] [address], [id number], [place]. tel:[phone] Referring Provider: Sheri Tompkins, [address] [place] [address], [id number]. tel:[phone] [facility], [address] [place] [address], [id number], [place] tel:[phone] [facility] [place] Encntr for exhauster engineer 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) (routine) w/o abn findingsEncntr screen for infections w sexl mode of transmissEncounter for screening for human immunodeficiency virusHuman immunodeficiency virus [HIV] counselingOther sex counselingEncounter for oth general cnsl and advice on contraceptionEncounter for surveillance of vagnl ring Harshad Pelaez. [address] [place] [address], [id number], [place]. tel:[phone] Referring Provider: Marycarmen Pelaez Harshad, [address] [place] [address], [id number]. tel:[phone] [facility], [address] [place] [address], [id number], [place] tel:[phone] [facility] [place] Encounter for oth g eneral cnsl and advice on contraceptionEncounter for surveillance of vagnl ringCandidiasis of vulva and vagina Alvina Borges. [address] [place] [address], [id number], [place]. tel:[phone] Referring Provider: Pushpa Tomlinson, [address] [place] [address], [id number]. tel:[phone] [facility], [address] [place] [address], [id number], [place] tel:[phone] [facility] [place] Other sex counselin gEncounter for oth general cnsl and advice on contraceptionEncntr for f/u exam aft trtmt for cond oth than malig neoplm Paula Navarro. [address] [place] [address], [id number], . tel:[phone] Referring Provider: Melanie Mitchell, [address] [place] [address], [id number]. tel:[phone] [facility], [address] [place] [address], [id number], [place] tel:[phone] [facility] [place] Encounter for pregn delmi test, result positiveEncntr screen for infections w sexl mode of transmissOther sex counselingEncounter for oth general cnsl and advice on contraceptionEncounter for initial prescription of vagnl ringEncounter for elective termination of pregnancyEncounter for other specified special examinationsUnspecified blood type, Rh positiveProblems related to unwanted pregnancy state, incidentalHigh risk heterosexual behaviorHuman immunodeficiency virus [HIV] counselingNausea Bill Amin. [address] [place] [address], [address] [place] [address], . tel:[phone] Referring Provider: Eloisa Khan, [address] [place], [place], [id number]. tel:[phone] [facility], [address] [place] [address], [id number], [place] tel:[phone] [facility] [place] Other sex counselin gEncounter for oth general cnsl and advice on contraceptionHuman immunodeficiency virus [HIV] counselingCandidiasis of vulva and vagina Paula gordon. [address] [place] [address], [id number], . tel:[phone] Referring Provider: Melanie Mitchell, [address] [place] [address], [address] [place] [address]. tel:[phone] [facility], [address] [place] [address], [id number], [place] tel:[phone] [facility] [place] Inapprop chg quanti tav hCG in early Paula Navarro. [address] [place] [address], [id number], . tel:[phone] Referring Provider: Melanie Mitchell, [address] [place], [place], [id number]. tel:[phone] [facility], [address] [place] [address], [id number], [place] tel:[phone] [facility] [place] Other sex counselin gEncounter for oth general cnsl and advice on contraceptionEncntr for f/u exam aft trtmt for cond oth than malig neoplmEncounter for prescription of emergency contraception Encounter for initial prescription of contraceptive pillsInapprop chg quantitav hCG in early Bill Amin. [address] [place] [address], [id number], . tel:[phone] Referring Provider: Eloisa Khan, [address] [place] [address], [address] [place] [address]. tel:[phone] [facility], [address] [place] [address], [id number], tel:[phone] [facility] Encounter for elect chava termination of Bill Amin. [address] [place] [address], [id number], . tel:[phone] Referring Provider: Eloisa Khan, [address] [place], [place], [address] [place] [address]. tel:[phone] [facility], [address] [place] [address], [address] [place] [address], tel:[phone] [facility] Encounter for pregn delmi test, result [...] examinationEncounter for other preprocedural examination Paula Navarro. [address] [place] [address], [id number], . tel:[phone] Referring Provider: Melanie Mitchell, [address] [place] [address], [id number]. tel:[phone] Family History Family Member Diagnosis Age At [...] Information Payers Payer name Insurance type Covered green party ID Authorization(s ) Medicaid MC [id number] Social History Type Description Quantity Date Captured [...] Date Type Action Status Appointment [facility] F/u BOOKED History Of Present Illness [...] Date No Information Medical Equipment Description Device Severance Device Identifier Effective Jose D es (start - stop) Status No Information Mental Status Date Cognitive Assessment No Information Health Concerns Observation Date No Information Concern Status Date No Information Physical Examination Exam Findings Details No Information
--- OUTSIDE RECORDS SUMMARY | 2021-03-18 18:10 | CCD | Continuity of Care Document ---
Author Author [facility] Organization [facility] Address Unknown Phone Unavailable Care Team Providers Care Property Master Name Role Phone Pushpa Tomlinson MD Unavailable Unavailable Allergies, Adverse Reactions, Alerts Substance Reaction Status Criticality Penicillins Hives / Skin Rash Active No Information Medications Medication Instructions Dosage Effective Dates (start - stop) Sta tus Comments acetaminophen 300 mg-codeine 30 mg tablet 1-2 tabs po every 4 ho urs prn pain - Active MDD 8 tablets NuvaRing 0.12 mg-0.015 mg/24 hr vaginal 1 ring inserte d vaginally x 3weeks, then 1 week out - Active Probiotic 100 billion cell capsule - A ctive Problems Condition Effective Dates (start - stop) Clinical Status C omments Encntr for f/u exam aft trtmt for [...] for malignant neoplasm of cervix Encntr for last turner 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) (routine) w/o abn findings [...] and vagina Other sex counseling Encounter for [facility] general cnsl and advice on contraception Encntr for f/u exam aft trtmt for cond [facility] Encounter for test, result positive Encntr screen [...] counseling Nausea Other sex counseling Encounter for [facility] general cnsl and advice on contraception Human immunodeficiency virus [HIV] counseling Candidiasis of vulva and vagina Inapprop chg quantitav hCG in early Other sex counseling Encounter for [facility] general cnsl and advice on contraception Encntr for f/u exam aft trtmt for cond [facility] Encounter for prescription of emergency contraception Encounter for initial prescription of contraceptive pills Inapprop chg quantitav hCG in early Encounter for elective termination of Encounter for test, result positive Encntr screen for infections w sexl mode of transmiss state, incidental Encounter for blood typing Problems related to unwanted Encounter for other specified special examinations Encounter for [facility] general cnsl and advice on contraception [...] on Encounter [facility], [address] [place] [address], [id number], tel:[phone] SEBASTIANWAJANNA Norman No Information Davi Pushpa. [address] [place] [address], [id number], [place]. tel:[phone] [facility], [address] [place] [address], [id number], [place] tel:[phone] [facility] Encntr for f/u exam aft trtmt for cond oth than malig neoplmEncounter for oth general cnsl and advice on contraceptionEncounter for surveillance of vagnl ringOther sex counseling Christian Goldstein. [address] [place] [address], [id number], [place]. tel:[phone] Referring Provider: Susanne Gonzales, [address] [place] [address], [id number]. tel:[phone] [facility], [address] [place] [address], [id number], [place] tel:[phone] [facility] Encounter for pregn delmi test, result positiveProblems related to unwanted pregnancy state, incidentalEncounter for elective termination of pregnancyEncounter for other specified special examinationsUnspecified blood type, Rh positiveEncntr screen for dis of the bld/bld-form org/immun mechnsmOther sex counselingEncounter for oth general cnsl and advice on contraceptionEncntr screen for infections w sexl mode of transmissHigh risk heterosexual behavior Christian Goldstein. [address] [place], [place], [id number], [place]. tel:[phone] Referring Provider: Susanne Gonzales, [address] [place] [address], [id number]. tel:[phone] [facility], [address] [place] [address], [id number], [place] tel:[phone] PPWANY [place] Pelvic and perineal painUnspecified ovarian cyst, unspecified sideEncounter for oth general cnsl and advice on contraceptionEncounter for surveillance of vagnl ringOther sex counselingHuman immunodeficiency virus [HIV] counseling Christian Goldstein. [address] [place], [place], [id number], [place]. tel:[phone] Referring Provider: Susanne Gonzales, [address] [place] [address], [id number]. tel:[phone] [facility], [address] [place] [address], [id number], [place] tel:[phone] [facility] Encounter for oth g eneral cnsl and advice on contraceptionOther sex counselingCandidiasis of vulva and vaginaOther specified noninflammatory disorders of vaginaPruritus vulvaeHuman immunodeficiency virus [HIV] counseling Harshad duke. [address] [place] [address], [id number], [place]. tel:[phone] Referring Provider: Marycarmen Patricia, [address] [place] [address], [id number]. tel:[phone] [facility], [address] [place] [address], [id number], [place] tel:[phone] PPWANY [place] Encntr for general adult medical exam w/o abnormal findingsAnemia, unspecified Harshad nguyen. [address] [place] [address], [id number], [place]. tel:[phone] Referring Provider: Marycarmen Patricia, [address] [place] [address], [id number]. tel:[phone] [facility], [address] [place] [address], [id number], [place] tel:[phone] PPKYRA [place] Human immunodeficie ncy virus [HIV] counselingOther sex counselingEncounter for oth general cnsl and advice on contraceptionAcute vaginitisEncounter for screening for malignant neoplasm of cervix Turner Wade. [address] [place] [address], [id number], [place]. tel:[phone] Referring Provider: Sheri Tompkins, [address] [place], [place], [id number]. tel:[phone] [facility], [address] [place] [address], [id number], [place] tel:[phone] FATOU [place]aga Encntr for last turner 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) (routine) w/o abn findingsEncntr screen for infections w sexl mode of transmissEncounter for screening for human immunodeficiency virusHuman immunodeficiency virus [HIV] counselingOther sex counselingEncounter for oth general cnsl and advice on contraceptionEncounter for surveillance of vagnl ring Harshad Pelaez. [address] [place] [address], [id number], [place]. tel:[phone] Referring Provider: Marycarmen Patricia, [address] [place] [address], [id number]. tel:[phone] [facility], [address] [place] [address], [id number], [place] tel:[phone] FATOU Heck Encounter for oth g eneral cnsl and advice on contraceptionEncounter for surveillance of vagnl ringCandidiasis of vulva and vagina Alvina Borges. [address] [place] [address], [id number], [place]. tel:[phone] Referring Provider: Pushpa Tomlinson, [address] [place], [place], [id number]. tel:[phone] [facility], [address] [place], [place], [id number], [place] tel:[phone] PPNCNY [place] Other sex counselin gEncounter for oth general cnsl and advice on contraceptionEncntr for f/u exam aft trtmt for cond oth than malig neoplm Paula Navarro. [address] [place], [place], [id number], [place]. tel:[phone] Referring Provider: Melanie Mitchell, [address] [place] [address], [id number]. tel:[phone] [facility], [address] [place] [address], [id number], [place] tel:[phone] PPNCNY [place] Encounter for pregn delmi test, result positiveEncntr screen for infections w sexl mode of transmissOther sex counselingEncounter for oth general cnsl and advice on contraceptionEncounter for initial prescription of vagnl ringEncounter for elective termination of pregnancyEncounter for other specified special examinationsUnspecified blood type, Rh positiveProblems related to unwanted pregnancy state, incidentalHigh risk heterosexual behaviorHuman immunodeficiency virus [HIV] counselingNausea Bill Amin. [address] [place] [address], [id number], [place]. tel:[phone] Referring Provider: Eloisa Khan, [address], [place], [id number]. tel:[phone] [facility], [address] [place] [address], [id number], [place] tel:[phone] PPNCNY [place] Other sex counselin gEncounter for oth general cnsl and advice on contraceptionHuman immunodeficiency virus [HIV] counselingCandidiasis of vulva and vagina Paula rios [address] [place] [address], [id number], [place]. tel:[phone] Referring Provider: Melanie Mitchell, [address] [place] [address], [id number]. tel:[phone] [facility], [address] [place] [address], [id number], [place] tel:[phone] PPNCNY [place] Inapprop chg quanti tav hCG in early Paula Navarro. [address] [place], [place], [id number], [place]. tel:[phone] Referring Provider: Melanie Mitchell, [address] [place], [place], [id number]. tel:[phone] [facility], [address] [place] [address], [id number], [place] tel:[phone] PPNCNY [place] Other sex counselin gEncounter for oth general cnsl and advice on contraceptionEncntr for f/u exam aft trtmt for cond oth than malig neoplmEncounter for prescription of emergency contraception Encounter for initial prescription of contraceptive pillsInapprop chg quantitav hCG in early Bill Amin. [address] [place] [address], [id number], [place]. tel:[phone] Referring Provider: Eloisa Khan, [address] [place] [address], [id number]. tel:[phone] [facility], [address] [place] [address], [id number], [place] tel:[phone] PPWANY [place] Encounter for elect chava termination of Bill Amin. [address] [place], [place], [id number], [place]. tel:[phone] Referring Provider: Eloisa Khan, [address], [place], [id number]. tel:[phone] [facility], [address] [place] [address], [id number], [place] tel:[phone] PPWANY [place] Encounter for pregn delmi test, result positiveEncntr [...] examinationEncounter for other preprocedural examination Paula Navarro. [address] [place] [address], [id number], . tel:[phone] Referring Provider: Melanie Mitchell, [address] [place] [address], [id number]. tel:[phone] Family History Family Member Diagnosis Age At [...] alliance party ID Authorization(s ) Medicaid MC [id number] Social History Type Description Quantity Date Captured [...] Date Type Action Status Appointment Ashlee Boucher -4 Week MAB F/ U BOOKED Appointment Ashlee Boucher BOOKED History Of Present Illness Encounter Date [...] Date No Information Medical Equipment Description Device Nemo Device Identifier Effective Jose D es (start - stop) Status No Information Mental Status Date Cognitive Assessment No Information Health Concerns Observation Date No Information Concern Status Date No Information Physical Examination Exam Findings Details No Information
--- OUTSIDE RECORDS SUMMARY | 2021-03-18 18:10 | CCD | Continuity of Care Document ---
Author Author [facility] Organization [facility] Address Unknown Phone Unavailable Care Team Providers Care Fancy Needleworker Name Role Phone Christian BURNING SUPERVISORSusanne Unavailable Unavailable Allergies, Adverse Reactions, Alerts Substance [...] 100 billion cell capsule - A ctive ibuprofen 800 mg tablet 1 tab po every 8 hours prn Dec - No Longer Active ondansetron HCl 4 mg tablet 1 tab po every 4 hours prn - No Longer Active Problems Condition Effective [...] Unspecified ovarian cyst, unspecified side Encounter for [facility] general cnsl and advice on contraception Encounter for surveillance of vagnl ring Other sex counseling Human immunodeficiency virus [HIV] counseling - Encounter for [facility] general cnsl and advice on contraception Other [...] for malignant neoplasm of cervix 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) w/o abn findings Encntr screen for infections w sexl mode of transmiss Encounter for screening for human immunodeficiency virus Human immunodeficiency virus [HIV] counseling Other sex counseling Encounter for [facility] general cnsl and advice on contraception Encounter for surveillance of vagnl ring Encounter for [facility] general cnsl and advice on contraception Encounter for surveillance of vagnl ring Candidiasis of vulva and vagina Other sex counseling Encounter for [facility] general cnsl and advice on contraception Encntr for f/u exam aft trtmt for cond [facility] Encounter for test, result positive Encntr screen for infections w sexl mode of transmiss Other sex counseling Encounter for [facility] general cnsl and advice on contraception Encounter for initial prescription of vagnl ring Encounter for elective termination of Encounter for other specified special examinations Unspecified blood type, Rh positive Problems related to unwanted state, incidental High risk heterosexual behavior Human immunodeficiency virus [HIV] counseling Nausea Other sex counseling Encounter for [facility] general cnsl and advice on contraception Human immunodeficiency virus [HIV] counseling Candidiasis of vulva and vagina Inapprop chg quantitav hCG in early Other sex counseling Encounter for [facility] general cnsl and advice on contraception Encntr for f/u exam aft trtmt for cond [facility] than mal neopl Encounter for prescription of emergency contraception Encounter for initial prescription of contraceptive pills Inapprop chg quantitav hCG in early Encounter for elective termination of Encounter for test, result positive Encntr screen for infections w sexl mode of transmiss state, incidental Encounter for blood typing Problems related to unwanted Encounter for other specified special examinations Encounter for [facility] general cnsl and advice on contraception High risk heterosexual behavior Human immunodeficiency virus [HIV] counseling Encounter for screening for human immunodeficiency virus Other sex counseling Less than 8 weeks gestation of Encounter for preprocedural laboratory examination Encounter for other preprocedural examination Procedures Procedure Date OFFICE VISIT, EST Post AB CVR Blood Pressure CVR Med.Svc. Height/Weight CVR Cargo Checker.Svc. Contraceptive CVR Cargo Checker.Svc. Other CVR Cargo Checker.Svc. STI / H Results Test Name Date and Time Measure Units Reference Range Abnormal Flag St atus Comments No Information Advance Directives Directive Yes / No Effective Date File Name No Information Encounters Encounter Description Practice Location Reason(s) For Visit Diagnose s Date Provider Providers Copied on Encounter OFFICE VISIT, EST Post AB [facility], [address] [place] [address], [id number], tel:[phone] PPMOQ-go Gordon Medicat ion Post (chief complaint) Encntr for f/u exam aft trtmt for cond o th than malig neoplmEncounter for oth general cnsl and advice on contraceptionEncounter for surveillance of vagnl ringOther sex counseling Gre en Susanne Goldstein. [address] [place] [address], [id number], . tel:[phone] Referring Provider: Susanne Gonzales, [address] [place] [address], [id number]. tel:[phone] [facility], [address] [place] [address], [id number], [place] tel:[phone] PPNCNY Gordon Encounter for pregn delmi test, result positiveProblems related to unwanted pregnancy state, incidentalEncounter for elective termination of pregnancyEncounter for other specified special examinationsUnspecified blood type, Rh positiveEncntr screen for dis of the bld/bld-form org/immun mechnsmOther sex counselingEncounter for oth general cnsl and advice on contraceptionEncntr screen for infections w sexl mode of transmissHigh risk heterosexual behavior Christian Goldstein. [address], [place], [id number], [place]. tel:[phone] Referring Provider: Susanne Gonzales, [address], [place], [id number]. tel:[phone] [facility], [address] [place] [address], [id number], [place] tel:[phone] PPMONY Gordon Pelvic and perineal painUnspecified ovarian cyst, unspecified sideEncounter for oth general cnsl and advice on contraceptionEncounter for surveillance of vagnl ringOther sex counselingHuman immunodeficiency virus [HIV] counseling Christian Goldstein. [address], [place], [id number], [place]. tel:[phone] Referring Provider: Susanne Gonzales, [address], [place], [id number]. tel:[phone] [facility], [address] [place] [address], [id number], [place] tel:[phone] PPMONY Gordon Encounter for oth g eneral cnsl and advice on contraceptionOther sex counselingCandidiasis of vulva and vaginaOther specified noninflammatory disorders of vaginaPruritus vulvaeHuman immunodeficiency virus [HIV] counseling Harshad duke. [address] [place] [address], [id number], [place]. tel:[phone] Referring Provider: Marycarmen Patricia, [address] [place] [address], [id number]. tel:[phone] [facility], [address] [place] [address], [id number], [place] tel:[phone] PPMONY Gordon Encntr for general adult medical exam w/o abnormal findingsAnemia, unspecified Harshad nguyen. [address] [place] [address], [id number], [place]. tel:[phone] Referring Provider: Marycarmen Patricia, [address] [place] [address], [id number]. tel:[phone] [facility], [address] [place] [address], [id number], [place] tel:[phone] PPNCNY Gordon Human immunodeficie ncy virus [HIV] counselingOther sex counselingEncounter for oth general cnsl and advice on contraceptionAcute vaginitisEncounter for screening for malignant neoplasm of cervix Turner Wade. [address] [place] [address], [id number], [place]. tel:[phone] Referring Provider: Sheri Tompkins, [address] [place] [address], [id number]. 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 [address] [place] [address], [id number], . tel:[phone] Referring Provider: Marycarmen Patricia, [address] [place] [address], [id number]. tel:[phone] [facility], [address] [place] [address], [id number], [place] tel:[phone] PPNCNY Umang Encounter for oth g eneral cnsl and advice on contraceptionEncounter for surveillance of vagnl ringCandidiasis of vulva and vagina Alvina Borges. [address] [place] [address], [id number], [place]. tel:[phone] Referring Provider: Pushpa Tomlinson, [address] [place] [address], [id number]. tel:[phone] [facility], [address] [place] [address], [id number], [place] tel:[phone] [facility] Other sex counselin gEncounter for oth general cnsl and advice on contraceptionEncntr for f/u exam aft trtmt for cond oth than malig neoplm Paula Navarro. [address] [place] [address], [id number], [place]. tel:[phone] Referring Provider: Melanie Mitchell, [address] [place] [address], [id number]. tel:[phone] [facility], [address] [place] [address], [id number], [place] tel:[phone] [facility] Encounter for pregn delmi test, result positiveEncntr screen for infections w sexl mode of transmissOther sex counselingEncounter for oth general cnsl and advice on contraceptionEncounter for initial prescription of vagnl ringEncounter for elective termination of pregnancyEncounter for other specified special examinationsUnspecified blood type, Rh positiveProblems related to unwanted pregnancy state, incidentalHigh risk heterosexual behaviorHuman immunodeficiency virus [HIV] counselingNausea Bill Amin. [address] [place] [address], [id number], [place]. tel:[phone] Referring Provider: Eloisa Khan, [address] [place], [place], [id number]. tel:[phone] [facility], [address] [place] [address], [id number], [place] tel:[phone] [facility] Other sex counselin gEncounter for oth general cnsl and advice on contraceptionHuman immunodeficiency virus [HIV] counselingCandidiasis of vulva and vagina Paula gordon. [address] [place] [address], [id number], [place]. tel:[phone] Referring Provider: Melanie Mitchell, [address] [place] [address], [id number]. tel:[phone] [facility], [address] [place] [address], [id number], [place] tel:[phone] PPMONY Gordon Inapprop chg quanti tav hCG in early Paula Navarro. [address] [place], [place], [id number], [place]. tel:[phone] Referring Provider: Melanie Mitchell, [address] [place], [place], [id number]. tel:[phone] [facility], [address] [place] [address], [id number], [place] tel:[phone] PPMONY Gordon Other sex counselin gEncounter for oth general cnsl and advice on contraceptionEncntr for f/u exam aft trtmt for cond oth than precious neoplmEncounter for prescription of emergency contraception Encounter for initial prescription of contraceptive pillsInapprop chg quantitav hCG in early Bill Amin. [address] [place] [address], [id number], [place]. tel:[phone] Referring Provider: Eloisa Khan, [address] [place] [address], [id number]. tel:[phone] [facility], [address] [place] [address], [id number], [place] tel:[phone] PPMONY Gordon Encounter for elect chava termination of Bill Amin. [address] [place] [address], [id number], [place]. tel:[phone] Referring Provider: Eloisa Khan, [address] [place], [place], [id number]. tel:[phone] [facility], [address], [place], [id number], tel:[phone] [facility] Gordon Encounter for pregn delmi test, result positiveEncntr [...] examinationEncounter for other preprocedural examination Paula Navarro. [address] [place] [address], [id number], . tel:[phone] Referring Provider: Melanie Mitcehll, [address] [place] [address], [id number]. tel:[phone] Family History Family Member Diagnosis Age At [...] alliance party ID Authorization(s ) Medicaid MC [id number] Social History Type Description Quantity Date Captured Comments Alcohol Use Details Unknown Caffeine Use Details Unknown Tobacco Use Status No Information Smoking Status Never smoker Sex Female Vital Signs Date / Time: Height Weight BMI Pulse Rate Blood Pressure Temperatu re Respiratory Rate Body Surface Area Head Circumference BMI percentile Pulse Ox In haled Ox 3:03 PM 63.00 in Chief Complaint And Reason For Visit Most recent encounter only, dated '01/01/2021 15:00'. Medication Post (chief complaint) Reason For [...] No Information Assessments Type Assessment Date assessment Encntr for f/u exam aft trtmt for cond o th than malig neoplm assessment Encounter for oth general cnsl and advic e on contraception assessment Encounter for surveillance of vagnl ring assessment Other sex counseling Goals Health Concern Goal Type Priority Status Date No Information Medical Equipment Description Device [place] Device Identifier Effective Jose D es (start - stop) Status No Information Mental Status Date Cognitive Assessment Orientation - Oriented to ti me, place, person, situation.Normal Orientation Health Concerns Observation Date No Information Concern Status Date No Information Physical Examination Exam Findings Details Neurological Normal Level of consciousne ss - Normal. Orientation - Normal. Psychiatric Normal Orientation - [place] ed to time, place, person & situation.
--- OUTSIDE RECORDS SUMMARY | 2021-03-18 18:11 | CCD | Continuity of Care Document ---
Author Author [facility] Organization [facility] Address Unknown Phone Unavailable Care Team Providers Care Casino Cage Supervisor Name Role Phone Christian ROLL SCALE WORKERSusanne Unavailable Unavailable Allergies, Adverse Reactions, Alerts Substance Reaction Status Criticality Penicillins Hives / Skin Rash Active No Information Medications Medication Instructions Dosage Effective Dates (start - stop) Sta tus Comments acetaminophen 300 mg-codeine 30 mg tablet 1-2 tabs po every 4 ho urs prn pain - Active MDD 8 tablets ibuprofen 800 mg tablet 1 tab po every 8 hours prn Dec - Active ondansetron HCl 4 mg tablet 1 tab po every 4 hours prn - Active NuvaRing 0.12 mg-0.015 mg/24 hr vaginal 1 ring inserte d vaginally x 3weeks, then 1 week out - Active Probiotic 100 billion cell capsule - A ctive Mifeprex 200 mg tablet 1 po administer to pt in clinic - No Longer Active misoprostol 200 mcg tablet 4 tabs buccally 24-48 hrs after mifep ristone (#4) - No Longer Active NuvaRing 0.12 mg-0.015 mg/24 hr vaginal 1 ring inserte d vaginally x 3weeks, then 1 week out - No Longer Active Problems Condition Effective Dates (start - stop) Clinical Status C omments Encounter for test, result positive Problems related to unwanted state, incidental Encounter for elective termination of Encounter for other specified special examinations Unspecified blood type, Rh positive Encntr screen for dis of the bld/bld-form org/immun mechn Other sex counseling Encounter for ot general cnsl and advice on contraception Encntr screen for infections w sexl mode of transmiss High risk heterosexual behavior Pelvic and perineal pain Unspecified ovarian cyst, unspecified side Encounter for oth general cnsl and advice on contraception Encounter for surveillance of vagnl ring Other sex counseling Human immunodeficiency virus [HIV] counseling - Encounter for ot general cnsl and advice on contraception Other [...] for malignant neoplasm of cervix 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 Encntr [...] f/u exam aft trtmt for cond cox north than [facility] Encounter for test, result positive Encntr screen for infections w sexl mode of transmiss Other sex counseling Encounter for oth general [...] f/u exam aft trtmt for cond cox north than mal neopl Encounter for prescription of [...] Provider Providers Copied on Encounter [facility], [address] [place] [address], [id number], tel:[phone] [facility] [place] Encounter for pregn delmi test, result positiveProblems related to unwanted pregnancy state, incidentalEncounter for elective termination of pregnancyEncounter for other specified special examinationsUnspecified blood type, Rh positiveEncntr screen for dis of the bld/bld-form org/immun mechnsmOther sex counselingEncounter for oth general cnsl and advice on contraceptionEncntr screen for infections w sexl mode of transmissHigh risk heterosexual behavior Christian Goldstein. [address] [place] [address], [id number], . tel:[phone] Referring Provider: Susanne Gonzales, [address] [place] [address], [id number]. tel:[phone] [facility], [address] [place] [address], [id number], [place] tel:[phone] FATOU [place] No Information Ricardoluther Borges. [address] [place] [address], [id number], . tel:[phone] [facility], [address] [place] [address], [id number], [place] tel:[phone] [facility] [place] Pelvic and perineal painUnspecified ovarian cyst, unspecified sideEncounter for oth general cnsl and advice on contraceptionEncounter for surveillance of vagnl ringOther sex counselingHuman immunodeficiency virus [HIV] counseling Christian Goldstein. [address] [place] [address], [id number], [place]. tel:[phone] Referring Provider: Susanne Gonzales, [address] [place], [place], [id number]. tel:[phone] [facility], [address] [place] [address], [id number], [place] tel:[phone] [facility] [place] Encounter for oth g eneral cnsl and advice on contraceptionOther sex counselingCandidiasis of vulva and vaginaOther specified noninflammatory disorders of vaginaPruritus vulvaeHuman immunodeficiency virus [HIV] counseling Harshad duke. [address] [place] [address], [id number], [place]. tel:[phone] Referring Provider: Marycarmen Patricia, [address] [place] [address], [id number]. tel:[phone] [facility], [address] [place] [address], [id number], [place] tel:[phone] [facility] [place] Encntr for general adult medical exam w/o abnormal findingsAnemia, unspecified Harshad nguyen. [address] [place] [address], [id number], [place]. tel:[phone] Referring Provider: Marycarmen Patricia, [address] [place] [address], [id number]. tel:[phone] [facility], [address] [place] [address], [id number], [place] tel:[phone] [facility] [place] Human immunodeficie ncy virus [HIV] counselingOther sex counselingEncounter for oth general cnsl and advice on contraceptionAcute vaginitisEncounter for screening for malignant neoplasm of cervix Turner Wade. [address] [place] [address], [id number], [place]. tel:[phone] Referring Provider: Sheri Tompkins, [address] [place], [place], [id number]. 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 [address] [place] [address], [id number], [place]. tel:[phone] Referring Provider: Marycarmen Patricia, [address] [place] [address], [id number]. tel:[phone] [facility], [address] [place] [address], [id number], [place] tel:[phone] [facility] [place] Encounter for oth g eneral cnsl and advice on contraceptionEncounter for surveillance of vagnl ringCandidiasis of vulva and vagina Alvina Borges. [address] [place] [address], [id number], [place]. tel:[phone] Referring Provider: Pushpa Tomlinson, [address] [place] [address], [id number]. tel:[phone] [facility], [address] [place] [address], [id number], [place] tel:[phone] [facility] [place] Other sex counselin gEncounter for oth general cnsl and advice on contraceptionEncntr for f/u exam aft trtmt for cond oth than malig neoplm Paula Navarro. [address] [place] [address], [id number], [place]. tel:[phone] Referring Provider: Melanie Mitchell, [address] [place] [address], [id number]. tel:[phone] [facility], [address] [place] [address], [id number], [place] tel:[phone] [facility] [place] Encounter for pregn delmi test, result positiveEncntr screen for infections w sexl mode of transmissOther sex counselingEncounter for oth general cnsl and advice on contraceptionEncounter for initial prescription of vagnl ringEncounter for elective termination of pregnancyEncounter for other specified special examinationsUnspecified blood type, Rh positiveProblems related to unwanted pregnancy state, incidentalHigh risk heterosexual behaviorHuman immunodeficiency virus [HIV] counselingNausea Bill Amin. [address] [place] [address], [id number], [place]. tel:[phone] Referring Provider: Eloisa Khan, [address] [place], [place], [id number]. tel:[phone] [facility], [address] [place] [address], [id number], [place] tel:[phone] [facility] [place] Other sex counselin gEncounter for oth general cnsl and advice on contraceptionHuman immunodeficiency virus [HIV] counselingCandidiasis of vulva and vagina Paula rios [address] [place] [address], [id number], [place]. tel:[phone] Referring Provider: Melanie Mitchell, [address] [place] [address], [id number]. tel:[phone] [facility], [address] [place] [address], [id number], [place] tel:[phone] [facility] Inapprop chg quanti tav hCG in early Paula Navarro. [address] [place], [place], [id number], . tel:[phone] Referring Provider: Melanie Mitchell, [address] [place], [place], [id number]. tel:[phone] [facility], [address] [place], [place], [id number], [place] tel:[phone] [facility] Other sex counselin gEncounter for oth general cnsl and advice on contraceptionEncntr for f/u exam aft trtmt for cond oth than malig neoplmEncounter for prescription of emergency contraception Encounter for initial prescription of contraceptive pillsInapprop chg quantitav hCG in early Bill Amin. [address] [place] [address], [id number], [place]. tel:[phone] Referring Provider: Eloisa Khan, [address] [place] [address], [id number]. tel:[phone] [facility], [address] [place] [address], [id number], [place] tel:[phone] [facility] Encounter for elect chava termination of Bill Amin. [address] [place] [address], [id number], [place]. tel:[phone] Referring Provider: Eloisa Khan, [address] [place], [place], [id number]. tel:[phone] [facility], [address] [place] [address], [id number], [place] tel:[phone] [facility] Encounter for pregn delmi test, result [...] examinationEncounter for other preprocedural examination Paula Navarro. [address] [place], [place], [id number], . tel:[phone] Referring Provider: Melanie Mitchell, [address] [place] [address], [id number]. tel:[phone] Family History Family Member Diagnosis Age At [...] Covered democrat ID Authorization(s ) Medicaid MC [id number] Social History Type Description Quantity Date Captured [...] Date Type Action Status Appointment Ashlee Boucher -mab 1 Week F/ u BOOKED Appointment Ashlee Boucher -4 Week MAB F/ [...] Date No Information Medical Equipment Description Device [place] Device Identifier Effective Jose D es (start - stop) Status No Information Mental Status Date Cognitive Assessment No Information Health Concerns Observation Date No Information Concern Status Date No Information Physical Examination Exam Findings Details No Information
--- OUTSIDE RECORDS SUMMARY | 2021-03-18 18:11 | CCD | Continuity of Care Document ---
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 findings Encntr screen for infections w sexl mode of transmiss Encounter for screening for human immunodeficiency virus Human immunodeficiency virus [HIV] counseling Other sex counseling Encounter for oth general cnsl and advice on contraception Encounter for surveillance of vagnl ring Encounter for oth general cnsl and advice on contraception Encounter for surveillance of vagnl ring Candidiasis of vulva and vagina Other sex counseling Encounter for oth general cnsl and advice on contraception Encntr for f/u exam aft trtmt for cond oth than malig neoplm Encounter for test, result positive Encntr screen [...] counseling Nausea Other sex counseling Encounter for oth general cnsl and advice on contraception Human immunodeficiency virus [HIV] counseling Candidiasis of vulva and vagina Inapprop chg quantitav hCG in early Other sex counseling Encounter for ot general cnsl and advice on contraception Encntr for f/u exam aft trtmt for cond oth than malig neoplm Encounter for prescription of emergency contraception Encounter for initial prescription of contraceptive pills Inapprop chg quantitav hCG in early Encounter for elective termination of Encounter for test, result positive Encntr screen for infections w sexl mode of transmiss state, incidental Encounter for blood typing Problems related to unwanted Encounter for other specified special examinations Encounter for ot general cnsl and advice on contraception High [...] Copied on Encounter [facility], [address] [place] [address], [id number], tel:[phone] FATOU [place] No Information Davi Barrow. [address] [place] [address], [id number], . tel:[phone] [facility], [address] [place] [address], [id number], tel:[phone] [facility] [place] Pelvic and perineal painUnspecified ovarian cyst, unspecified sideEncounter for oth general cnsl and advice on contraceptionEncounter for surveillance of vagnl ringOther sex counselingHuman immunodeficiency virus [HIV] counseling Christian Goldstein. [address] [place] [address], [id number], [place]. tel:[phone] Referring Provider: Susanne Gonzales, [address] [place] [address], [id number]. tel:[phone] [facility], [address] [place] [address], [id number], [place] tel:[phone] [facility] Encounter for oth g eneral cnsl and advice on contraceptionOther sex counselingCandidiasis of vulva and vaginaOther specified noninflammatory disorders of vaginaPruritus vulvaeHuman immunodeficiency virus [HIV] counseling Dwello Marycarmen duke. [address] [place] [address], [id number], [place]. tel:[phone] Referring Provider: Marycarmen Patricia, [address] [place] [address], [id number]. tel:[phone] [facility], [address] [place] [address], [id number], [place] tel:[phone] [facility] Encntr for general adult medical exam w/o abnormal findingsAnemia, unspecified Dwelldemetrius nguyen. [address] [place] [address], [id number], [place]. tel:[phone] Referring Provider: Marycarmen Patricia, [address] [place] [address], [id number]. tel:[phone] [facility], [address] [place] [address], [id number], [place] tel:[phone] [facility] Human immunodeficie ncy virus [HIV] counselingOther sex counselingEncounter for oth general cnsl and advice on contraceptionAcute vaginitisEncounter for screening for malignant neoplasm of cervix Turner Wade. [address] [place] [address], [id number], [place]. tel:[phone] Referring Provider: Sheri Tompkins, [address] [place], [place], [id number]. tel:[phone] [facility], [address] [place] [address], [id number], [place] tel:[phone] [facility] [place] Encntr for counterintelligence agent 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) (routine) w/o abn findingsEncntr screen for infections w sexl mode of transmissEncounter for screening for human immunodeficiency virusHuman immunodeficiency virus [HIV] counselingOther sex counselingEncounter for oth general cnsl and advice on contraceptionEncounter for surveillance of vagnl ring Harshad Pelaez. [address] [place] [address], [id number], [place]. tel:[phone] Referring Provider: Marycarmen Patricia, [address] [place] [address], [id number]. tel:[phone] [facility], [address] [place] [address], [id number], [place] tel:[phone] [facility] [place] Encounter for oth g eneral cnsl and advice on contraceptionEncounter for surveillance of vagnl ringCandidiasis of vulva and vagina Alvina Borges. [address] [place] [address], [id number], [place]. tel:[phone] Referring Provider: Pushpa Tomlinson, [address] [place] [address], [id number]. tel:[phone] [facility], [address] [place] [address], [id number], [place] tel:[phone] [facility] [place] Other sex counselin gEncounter for oth general cnsl and advice on contraceptionEncntr for f/u exam aft trtmt for cond oth than malig neoplm Paula Navarro. [address] [place], [place], [id number], [place]. tel:[phone] Referring Provider: Melanie Mitchell, [address] [place], [place], [id number]. tel:[phone] [facility], [address] [place] [address], [id number], [place] tel:[phone] [facility] [place] Encounter for pregn delmi test, result positiveEncntr screen for infections w sexl mode of transmissOther sex counselingEncounter for oth general cnsl and advice on contraceptionEncounter for initial prescription of vagnl ringEncounter for elective termination of pregnancyEncounter for other specified special examinationsUnspecified blood type, Rh positiveProblems related to unwanted pregnancy state, incidentalHigh risk heterosexual behaviorHuman immunodeficiency virus [HIV] counselingNausea Bill Amin. [address] [place] [address], [id number], [place]. tel:[phone] Referring Provider: Eloisa Khan, [address] [place], [place], [id number]. tel:[phone] [facility], [address] [place] [address], [id number], [place] tel:[phone] [facility] [place] Other sex counselin gEncounter for oth general cnsl and advice on contraceptionHuman immunodeficiency virus [HIV] counselingCandidiasis of vulva and vagina Paula rios [address] [place] [address], [id number], [place]. tel:[phone] Referring Provider: Melanie Mitchell, [address] [place], [place], [id number]. tel:[phone] [facility], [address] [place] [address], [id number], [place] tel:[phone] [facility] [place] Inapprop chg quanti tav hCG in early Paula Navarro. [address] [place], [place], [id number], [place]. tel:[phone] Referring Provider: Melanie Mitchell, [address] [place], [place], [id number]. tel:[phone] [facility], [address] [place] [address], [id number], [place] tel:[phone] [facility] [place] Other sex counselin gEncounter for oth general cnsl and advice on contraceptionEncntr for f/u exam aft trtmt for cond oth than malig neoplmEncounter for prescription of emergency contraception Encounter for initial prescription of contraceptive pillsInapprop chg quantitav hCG in early Bill Amin. [address] [place] [address], [id number], [place]. tel:[phone] Referring Provider: Eloisa Khan, [address] [place], [place], [id number]. tel:[phone] [facility], [address] [place] [address], [id number], [place] tel:[phone] [facility] Encounter for elect chava termination of Bill Amin. [address] [place] [address], [id number], [place]. tel:[phone] Referring Provider: Eloisa Khan, [address] [place], [place], [id number]. tel:[phone] [facility], [address] [place] [address], [id number], [place] tel:[phone] [facility] [place] Encounter for pregn delmi test, result positiveEncntr [...] for other preprocedural examination Paula Navarro. [address] [place], [place], [id number], . tel:[phone] Referring Provider: Melanie Mitchell, [address] [place] [address], [id number]. tel:[phone] Family History Family Member Diagnosis Age At [...] Covered democrat ID Authorization(s ) Medicaid MC [id number] Social History Type Description Quantity Date Captured [...] Date Type Action Status Appointment Ashlee Boucher LMP 11/09 RH ON FILE BOOKED History Of Present Illness Encounter Date [...] Date No Information Medical Equipment Description Device [place] Device Identifier Effective Jose D es (start - stop) Status No Information Mental Status Date Cognitive Assessment No Information Health Concerns Observation Date No Information Concern Status Date No Information Physical Examination Exam Findings Details No Information
--- OUTSIDE RECORDS SUMMARY | 2021-03-18 18:11 | CCD | Continuity of Care Document ---
Author Author [facility] Organization [facility] Address Unknown Phone Unavailable Care Team Providers Care Conditioning Coach Name Role Phone Christian ELECTROSTATIC PAINT OPERATORSusanne Unavailable Unavailable Allergies, Adverse Reactions, Alerts Substance [...] Unspecified ovarian cyst, unspecified side Encounter for [facility] general cnsl and advice on contraception Encounter for surveillance of vagnl ring Other sex counseling Human immunodeficiency virus [HIV] counseling - Encounter for [facility] general cnsl and advice on contraception [...] malignant neoplasm of cervix 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) w/o abn findings Encntr screen for infections w sexl mode of transmiss Encounter for screening for human immunodeficiency virus Human immunodeficiency virus [HIV] counseling Other sex counseling Encounter for [facility] general cnsl and advice on contraception Encounter for surveillance of vagnl ring Encounter for [facility] general cnsl and advice on contraception Encounter for surveillance of vagnl ring Candidiasis of vulva and vagina Other sex counseling Encounter for [facility] general cnsl and advice on contraception Encntr for f/u exam aft trtmt for cond [facility] Encounter for test, result positive Encntr screen for infections w sexl mode of transmiss Other sex counseling Encounter for [facility] general cnsl and advice on contraception Encounter for initial prescription of vagnl ring Encounter for elective termination of Encounter for other specified special examinations Unspecified blood type, Rh positive Problems related to unwanted state, incidental High risk heterosexual behavior Human immunodeficiency virus [HIV] counseling Nausea Other sex counseling Encounter for [facility] general cnsl and advice on contraception Human immunodeficiency virus [HIV] counseling Candidiasis of vulva and vagina Inapprop chg quantitav hCG in early Other sex counseling Encounter for [facility] general cnsl and advice on contraception Encntr for f/u exam aft trtmt for cond [facility] than mal neopl Encounter for prescription [...] Copied on Encounter [facility], [address] [place] [address], [id number], tel:[phone] [facility] Encntr for f/u exam aft trtmt for cond oth than malig neoplmEncounter for oth general cnsl and advice on contraceptionEncounter for surveillance of vagnl ringOther sex counseling Christian Goldstein. [address] [place] [address], [id number], . tel:[phone] Referring Provider: Susanne Gonzales, [address], [place], [id number]. tel:[phone] [facility], [address] [place] [address], [id number], tel:[phone] [facility] No Information Alona vitale Susanne Goldstein. [address] [place] [address], [id number], . tel:[phone] [facility], [address], [place], [id number], [place] tel:[phone] [facility] Encounter for pregn delmi test, result positiveProblems related to unwanted pregnancy state, incidentalEncounter for elective termination of pregnancyEncounter for other specified special examinationsUnspecified blood type, Rh positiveEncntr screen for dis of the bld/bld-form org/immun mechnsmOther sex counselingEncounter for oth general cnsl and advice on contraceptionEncntr screen for infections w sexl mode of transmissHigh risk heterosexual behavior Christian Goldstein. [address], [place], [id number], [place]. tel:[phone] Referring Provider: Susanne Gonzales, [address], [place], [id number]. tel:[phone] [facility], [address] [place] [address], [id number], [place] tel:[phone] [facility] Pelvic and perineal painUnspecified ovarian cyst, unspecified sideEncounter for oth general cnsl and advice on contraceptionEncounter for surveillance of vagnl ringOther sex counselingHuman immunodeficiency virus [HIV] counseling Christian Goldstein. [address], [place], [id number], [place]. tel:[phone] Referring Provider: Susanne Gonzales, [address] [place] [address], [id number]. tel:[phone] [facility], [address] [place] [address], [id number], [place] tel:[phone] [facility] Encounter for oth g eneral cnsl and advice on contraceptionOther sex counselingCandidiasis of vulva and vaginaOther specified noninflammatory disorders of vaginaPruritus vulvaeHuman immunodeficiency virus [HIV] counseling Maluo Marycarmen duke. [address] [place] [address], [id number], [place]. tel:[phone] Referring Provider: Marycarmen Patricia, [address], [place], [id number]. tel:[phone] [facility], [address] [place] [address], [id number], [place] tel:[phone] [facility] Encntr for general adult medical exam w/o abnormal findingsAnemia, unspecified Harshad nguyen. [address] [place] [address], [id number], [place]. tel:[phone] Referring Provider: Marycarmen Patricia, [address] [place] [address], [id number]. tel:[phone] [facility], [address] [place] [address], [id number], [place] tel:[phone] [facility] Human immunodeficie ncy virus [HIV] counselingOther sex counselingEncounter for oth general cnsl and advice on contraceptionAcute vaginitisEncounter for screening for malignant neoplasm of cervix Turner Wade. [address] [place] [address], [id number], [place]. tel:[phone] Referring Provider: Sheri Tompkins, [address], [place], [id number]. 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 [address] [place] [address], [id number], [place]. tel:[phone] Referring Provider: Marycarmen Patricia, [address] [place] [address], [id number]. tel:[phone] [facility], [address] [place] [address], [id number], [place] tel:[phone] FATOU Heck Encounter for oth g eneral cnsl and advice on contraceptionEncounter for surveillance of vagnl ringCandidiasis of vulva and vagina Alvina Borges. [address] [place] [address], [id number], [place]. tel:[phone] Referring Provider: Pushpa Tomlinson, [address] [place] [address], [id number]. tel:[phone] [facility], [address] [place] [address], [id number], [place] tel:[phone] [facility] Other sex counselin gEncounter for oth general cnsl and advice on contraceptionEncntr for f/u exam aft trtmt for cond oth than malig neoplm Paula Navarro. [address], [place], [id number], [place]. tel:[phone] Referring Provider: Melanie Mitchell, [address] [place] [address], [id number]. tel:[phone] [facility], [address] [place] [address], [id number], [place] tel:[phone] [facility] Encounter for pregn delmi test, result positiveEncntr screen for infections w sexl mode of transmissOther sex counselingEncounter for oth general cnsl and advice on contraceptionEncounter for initial prescription of vagnl ringEncounter for elective termination of pregnancyEncounter for other specified special examinationsUnspecified blood type, Rh positiveProblems related to unwanted pregnancy state, incidentalHigh risk heterosexual behaviorHuman immunodeficiency virus [HIV] counselingNausea Bill Amin. [address] [place] [address], [id number], [place]. tel:[phone] Referring Provider: Eloisa Khan, [address], [place], [id number]. tel:[phone] [facility], [address] [place] [address], [id number], [place] tel:[phone] [facility] Other sex counselin gEncounter for oth general cnsl and advice on contraceptionHuman immunodeficiency virus [HIV] counselingCandidiasis of vulva and vagina Paula rios [address] [place] [address], [id number], [place]. tel:[phone] Referring Provider: Melanie Mitchell, [address] [place] [address], [id number]. tel:[phone] [facility], [address] [place] [address], [id number], [place] tel:[phone] [facility] Inapprop chg quanti tav hCG in early Paula Navarro. [address], [place], [id number], [place]. tel:[phone] Referring Provider: Melanie Mitchell, [address], [place], [id number]. tel:[phone] [facility], [address] [place] [address], [id number], [place] tel:[phone] SEBASTIANMSJANNA Gabriels Other sex counselin gEncounter for oth general cnsl and advice on contraceptionEncntr for f/u exam aft trtmt for cond oth than malig neoplmEncounter for prescription of emergency contraception Encounter for initial prescription of contraceptive pillsInapprop chg quantitav hCG in early Bill Amin. [address] [place] [address], [id number], [place]. tel:[phone] Referring Provider: Eloisa Khan, [address] [place] [address], [id number]. tel:[phone] [facility], [address] [place] [address], [id number], [place] tel:[phone] FATOU Gabriels Encounter for elect chava termination of Bill Amin. [address] [place] [address], [id number], [place]. tel:[phone] Referring Provider: Eloisa Khan, [address], [place], [id number]. tel:[phone] [facility], [address], [place], [id number], tel:[phone] [facility] Encounter for pregn delmi test, result positiveEncntr [...] examinationEncounter for other preprocedural examination Paula Navarro. [address] [place] [address], [id number], . tel:[phone] Referring Provider: Melanie Mitchell, [address] [place] [address], [id number]. tel:[phone] Family History Family Member Diagnosis Age At [...] green party ID Authorization(s ) Medicaid MC [id number] Social History Type Description Quantity Date Captured [...] Date No Information Medical Equipment Description Device [place] Device Identifier Effective Jose D es (start - stop) Status No Information Mental Status Date Cognitive Assessment No Information Health Concerns Observation Date No Information Concern Status Date No Information Physical Examination Exam Findings Details No Information
--- OUTSIDE RECORDS SUMMARY | 2021-03-18 18:11 | CCD ---
Author Author [facility] Organization [facility] Address Unknown Phone Unavailable Care Team Providers Care Irrigation Installation Specialist Name Role Phone Guillermina Mitchell Unavailable Unavailable Guillermina Mitchell Unavailable Unavailable Guillermina Mitchell Unavailable Unavailable Guillermina Mitchell Unavailable Unavailable Guillermina Mitchell Unavailable Unavailable Guillermina Mitchell Unavailable Unavailable Guillermina Mitchell Unavailable Unavailable Guillermina Mitchell Unavailable Unavailable Guillermina Mitchell Unavailable Unavailable Guillermina Mitchell Unavailable Unavailable Guillermina Mitchell Unavailable Unavailable Guillermina Mitchell Unavailable Unavailable Guillermina Mitchell Unavailable Unavailable Guillermina Mitchell Unavailable Unavailable Guillermina Mitchell Unavailable Unavailable Guillermina Mitchell Unavailable Unavailable Guillermina Mitchell Unavailable Unavailable Guillermina Mitchell Unavailable Unavailable Guillermina Mitchell Unavailable Unavailable Guillermina Mitchell PA Unavailable Unavailable Guillermina Mitchell PA Unavailable Unavailable Guillermina Mitchell PA Unavailable Unavailable Tompkins, Sheri Unavailable Unavailable Tompkins, Sheri Unavailable Unavailable Tompkins, Sheri Unavailable Unavailable Tompkins, Sheri Unavailable Unavailable Tompkins, Sheri Unavailable Unavailable Tompkins, Sheri Unavailable Unavailable Green TAX APPRAISER TAX APPRAISER, Susanne Unavailable Unavailable Green TAX APPRAISER TAX APPRAISER, Susanne Unavailable Unavailable Green TAX APPRAISER TAX APPRAISER, Susanne Unavailable Unavailable Green TAX APPRAISER TAX APPRAISER, Susanne Unavailable Unavailable Green TAX APPRAISER TAX APPRAISER, Susanne Unavailable Unavailable Jaylin Tomlinson MD Unavailable Unavailable Jaylin Tomlinson MD Unavailable Unavailable Davi, Jaylin Barrow MD Unavailable Unavailable Davi, Jaylin Barrow MD Unavailable Unavailable Davi, Jaylin Barrow MD Unavailable Unavailable Davi, Jaylin Barrow MD Unavailable Unavailable Davi, Jaylin Barrow MD Unavailable Unavailable Davi, Jaylin Barrow MD Unavailable Unavailable Davi, Jaylin Barrow MD Unavailable Unavailable Davi, Jaylin Barrow MD Unavailable Unavailable Davi, Jaylin Barrow MD Unavailable Unavailable Davi, Jaylin Barrow MD Unavailable Unavailable Davi, Jaylin Barrow MD Unavailable Unavailable Davi, Jaylin Barrow MD Unavailable Unavailable Davi, Jaylin Barrow MD Unavailable Unavailable Davi, Jaylin Barrow MD Unavailable Unavailable Davi, Jaylin Barrow MD Unavailable Unavailable Davi, Jaylin Barrow MD Unavailable Unavailable Davi, Jaylin Barrow MD Unavailable Unavailable Davi, Jaylin Barrow MD Unavailable Unavailable Davi, A Pushpa SANTIAGO Unavailable Unavailable Davi, A Pushpa SANTIAGO Unavailable Unavailable Davi, A Pushpa SANTIAGO Unavailable Unavailable Davi, A Pushpa SANTIAGO Unavailable Unavailable Davi, A Pushpa SANTIAGO Unavailable Unavailable Davi, A Pushpa SANTIAGO Unavailable Unavailable Davi, Jaylin Barrow MD Unavailable Unavailable Davi, A Pushpa SANTIAGO Unavailable Unavailable Davi, A Pushpa SANTIAGO Unavailable Unavailable Davi, A Pushpa SANTIAGO Unavailable Unavailable Davi, A Pushpa SANTIAGO Unavailable Unavailable Davi, A Pushpa SANTIAGO Unavailable Unavailable Davi, Jaylin Barrow MD Unavailable Unavailable Davi, Jaylin Barrow MD Unavailable Unavailable Davi, Jaylin Barrow MD Unavailable Unavailable Davi, A Pushpa SANTIAGO Unavailable Unavailable Davi, A Pushpa SANTIAGO Unavailable Unavailable Davi, A Pushpa SANTIAGO Unavailable Unavailable Davi, A Pushpa SANTIAGO Unavailable Unavailable Davi, Jaylin Barrow MD Unavailable Unavailable Davi, Jaylin Barrow MD Unavailable Unavailable Davi, Jaylin Barrow MD Unavailable Unavailable Davi, Jaylin Barrow MD Unavailable Unavailable Davi, Jaylin Barrow MD Unavailable Unavailable Davi, Jaylin Barrow MD Unavailable Unavailable Davi, Jaylin Barrow MD Unavailable Unavailable Davi, Jaylin Barrow MD Unavailable Unavailable Davi, Jaylin Barrow MD Unavailable Unavailable Davi, Jaylin Barrow MD Unavailable Unavailable Davi, Jaylin Barrow MD Unavailable Unavailable Dvai, Jaylin Barrow MD Unavailable Unavailable Davi, Jaylin Barrow MD Unavailable Unavailable Davi, Jaylin Barrow MD Unavailable Unavailable Davi, A Pushpa SANTIAGO Unavailable Unavailable Davi, A Pushpa SANTIAGO Unavailable Unavailable Davi, A Pushpa SANTIAGO Unavailable Unavailable Davi, Jaylin Barrow MD Unavailable Unavailable Davi, Jaylin Barrow MD Unavailable Unavailable Davi, Jaylin Barrow MD Unavailable Unavailable Davi, Jaylin Barrow MD Unavailable Unavailable Davi, Jaylin Barrow MD Unavailable Unavailable Davi, Jaylin Barrow MD Unavailable Unavailable Davi, Jaylin Barrow MD Unavailable Unavailable Davi, Jaylin Barrow MD Unavailable Unavailable Davi, Jaylin Barrow MD Unavailable Unavailable Davi, A Pushpa MD Unavailable Unavailable Davi A Pushpa SANTIAGO Unavailable Unavailable Davi, A Pushpa SANTIAGO Unavailable Unavailable Davi, A Pushpa SANTIAGO Unavailable Unavailable Davi, A Pushpa SANTIAGO Unavailable Unavailable Davi, A Pushpa SANTIAGO Unavailable Unavailable Davi, A Pushpa SANTIAGO Unavailable Unavailable Davi, A Pushpa SANTIAGO Unavailable Unavailable Davi, A Pushpa SANTIAGO Unavailable Unavailable Davi, A Pushpa SANTIAGO Unavailable Unavailable Davi, A Pushpa SANTIAGO Unavailable Unavailable Davi, A Pushpa SANTIAGO Unavailable Unavailable Davi, A Pushpa SANTIAGO Unavailable Unavailable Davi, A Pushpa SANTIAGO Unavailable Unavailable Davi, A Pushpa SANTIAGO Unavailable Unavailable Davi, A Pushpa SANTIAGO Unavailable Unavailable Jaylin Tomlinson MD Unavailable Unavailable Dwello PA PA, Marycarmen Unavailable Unavailable Dwello PA PA, Marycarmen Unavailable Unavailable Dwello PA PA, Marycarmen Unavailable Unavailable Dwello PA PA, Marycarmen Unavailable Unavailable Dwello PA PA, Marycarmen Unavailable Unavailable Dwello PA PA, Marycarmen Unavailable Unavailable Dwello PA PA, Marycarmen Unavailable Unavailable PRYBYLOWSKI, E TURNER PA Unavailable Unavailable PRYBYLOWSKI, E TURNER PA Unavailable Unavailable PRYBYLOWSKI, E TURNER PA Unavailable Unavailable PRYBYLOWSKI, E TURNER PA Unavailable Unavailable PRYBYLOWSKI, E TURNER PA Unavailable Unavailable PRYBYLOWSKI, E TURNER PA Unavailable Unavailable PRYBYLOWSKI, E TURNER PA Unavailable Unavailable PRYBYLOWSKI, E TURNER PA Unavailable Unavailable PRYBYLOWSKI, E TURNER PA Unavailable Unavailable PRYBYLOWSKI, E TURNER PA Unavailable Unavailable PRYBYLOWSKI, E TURNER PA Unavailable Unavailable PRYBYLOWSKI, E TURNER PA Unavailable Unavailable PRYBYLOWSKI, E TURNER PA Unavailable Unavailable PRYBYLOWSKI, E TURNER PA Unavailable Unavailable PRYBYLOWSKI, E TURNER PA Unavailable Unavailable PRYBYLOWSKI, E TURNER PA Unavailable Unavailable PRYBYLOWSKI, E TURNER PA Unavailable Unavailable AXEL, E TIFFANY TAX APPRAISER Unavailable Unavailable AXEL, E TIFFANY TAX APPRAISER Unavailable Unavailable AXEL, E TIFFANY TAX APPRAISER Unavailable Unavailable AXEL, E TIFFANY TAX APPRAISER Unavailable Unavailable AXEL, E TIFFANY TAX APPRAISER Unavailable Unavailable AXEL, E TIFFANY TAX APPRAISER Unavailable Unavailable AXEL, E TIFFANY TAX APPRAISER Unavailable Unavailable AXEL, E TIFFANY TAX APPRAISER Unavailable Unavailable AXEL, E TIFFANY TAX APPRAISER Unavailable Unavailable AXEL, E TIFFANY TAX APPRAISER Unavailable Unavailable AXEL, E TIFFANY TAX APPRAISER Unavailable Unavailable AXEL, E TIFFANY TAX APPRAISER Unavailable Unavailable AXEL, E TIFFANY TAX APPRAISER Unavailable Unavailable Re-disclosure Warning The records that you are about to access may contain information from federally-assisted alcohol or drug abuse programs. If such information is present, then the following federally mandated warning applies: This information has been disclosed to you from records protected by federal confidentiality rules (42 CFR part 2). The federal rules prohibit you from making any further disclosure of this information unless further disclosure is expressly permitted by the written consent of the person to whom it pertains or as otherwise permitted by 42 CFR part 2. A general authorization for the release of medical or other information is NOT sufficient for this purpose. The Federal rules restrict any use of the information to criminally investigate or prosecute any alcohol or drug abuse patient.The records that you are about to access may contain highly sensitive health information, the redisclosure of which is protected by Article 27-F of the [facility] Public Health law. If you continue you may have access to information: Regarding HIV / AIDS; Provided by facilities licensed or operated by the [facility] Office of Mental Health; or Provided by the [facility] Office for People With Developmental Disabilities. If such information is present, then the following [facility] mandated warning applies: This information has been disclosed to you from confidential records which are protected by state law. State law prohibits you from making any further disclosure of this information without the specific written consent of the person to whom it pertains, or as otherwise permitted by law. Any unauthorized further disclosure in violation of state law may result in a fine or fdc sentence or both. A general authorization for the release of medical or other information is NOT sufficient authorization for further disc losure. Allergies and Adverse Reactions Type Description Substance Reaction Status Data Source(s ) Propensity to adverse reactions latex Latex Acti ve [facility] ([facility]) Family History Family Member Name Family Member Gender Family Member Status Date o f Status Description Data Source(s) Unknown Female Diagnosis 03/16/2020 12:00:00 AM EDT [facility] ([facility]) Encounters Encounter Providers Location Date Indications Data Source(s ) Attender: Susanne Rizzo 03/12/2021 09:53:00 AM EDT - 03/12/2021 09:53:00 AM EDT [facility] ([facility]) Attender: Pushpa Sinha 09:25:00 AM EDT - 03/09/2021 09:25:00 AM EDT [facility] ([facility]) Attender: Pushpa Rizzo 1 09:57:00 AM EDT - 03/06/2021 09:57:00 AM EDT [facility] ([facility]) Attender: Susanne Sinha 1 07:45:00 AM EDT - 03/02/2021 07:45:00 AM EDT Pain in thoracic spinePain in right shou lderPain in left shoulderUnspecified injury of neck, initial encounter [facility] ([facility]) Pain in thoracic spine Pain in right shoulder Pain in left shoulder Unspecified injury of neck, initial enco unter Attender: Susanne Sinha 0 02/05/2021 03:27:00 PM EDT - 02/05/2021 03:27:00 PM EDT [facility] ([facility]) OFFICE VISIT, EST. Post ABOutpatient Attender: Marycarmen Sinha 01/23/2021 03:00:00 PM EDT - 01/23/2021 03:00:00 PM ED T Encntr for f/u exam aft trtmt for cond oth than malig neoplmEncounter for oth general cnsl and advice on contraceptionOther sex counseling [facility] ([facility]) Encntr for f/u exam aft trtmt for cond o th than malig neoplm Encounter for oth general cnsl and advic e on contraception Other sex counseling Attender: Marycarmen Sinha 03:42:00 PM EDT - 01/16/2021 03:42:00 PM EDT [facility] ([facility]) Attender: Susanne Sinha 0 01/13/2021 08:28:00 AM EDT - 01/13/2021 08:28:00 AM EDT [facility] ([facility]) Attender: TIFFANY Rizzo 11:16:00 AM EDT - 01/12/2021 11:16:00 AM EDT [facility] ([facility]) Attender: Pushpa Rizzo 0 01/02/2021 08:22:00 AM EDT - 01/02/2021 08:22:00 AM EDT [facility] ([facility]) OFFICE VISIT, EST Post ABOutpatient Attender: Susanne Sinha 01/01/2021 03:00:00 PM EDT - 01/01/2021 03:00:00 PM ED T Other sex counselingEncounter for surveillance of vagnl ringEncounter for oth general cnsl and advice on contraceptionEncntr for f/u exam aft trtmt for cond oth than malig neoplm [facility] ([facility]) Other sex counseling Encounter for surveillance of vagnl ring Encounter for oth general cnsl and advic e on contraception Encntr for f/u exam aft trtmt for cond o th than malig neoplm Attender: Susanne Gonzales NP TAX APPRAISER FATOU Sinha 0 01/01/2021 09:45:00 AM EDT - 01/01/2021 09:45:00 AM EDT [facility] ([facility]) Attender: Susanne Gonzales NP TAX APPRAISER FATOU Sinha 0 12/25/2020 02:45:00 PM EDT - 12/25/2020 02:45:00 PM EDT High risk heterosexual behaviorEncntr sc reen for infections w sexl mode of transmissEncounter for oth general cnsl and advice on contraceptionOther sex counselingEncntr screen for dis of the bld/bld-form org/immun mechnsmUnspecified blood type, Rh positiveEncounter for other specified special examinationsEncounter for elective termination of pregnancy state, incidentalProblems related to unwanted pregnancyEnco unter for test, result positive [facility] ([facility]) High risk heterosexual behavior Encntr screen for infections w sexl mode of transmiss Encounter for oth general cnsl and advic e on contraception Other sex counseling Encntr screen for dis of the bld/bld-for m org/immun mechnsm Unspecified blood type, Rh positive Encounter for other specified special ex aminations Encounter for elective termination of pr egnancy state, incidental Problems related to unwanted Encounter for test, result pos itive Attender: TURNER Rizzo 12/25/2020 08:17:00 AM EDT - 12/25/2020 08:17:00 AM EDT [facility] ([facility]) Attender: Pushpa Rizzo 0 12/22/2020 04:24:00 PM EDT - 12/22/2020 04:24:00 PM EDT [facility] ([facility]) Attender: Pushpa Rizzo 0 09/12/2020 04:48:00 PM EDT - 09/12/2020 04:48:00 PM EDT [facility] ([facility]) Attender: Marycarmen Sinha 07:26:00 AM EDT - 09/11/2020 07:26:00 AM EDT [facility] ([facility]) OFFICE VISIT, ESTOutpatient Attender: Susanne Gonzales NP TAX APPRAISER FATOU Sinha 09/08/2020 10:00:00 AM EDT - 09/08/2020 10:00:00 AM EDT Human immunodeficiency virus [HIV] counselingOther sex counselingEncounter for surveillance of vagnl ringEncounter for oth general cnsl and advice on contraceptionUnspecified ovarian cyst, unspecified sidePelvic and perineal pain [facility] ([facility]) Human immunodeficiency virus [HIV] couns eling Other sex counseling Encounter for surveillance of vagnl ring Encounter for oth general cnsl and advic e on contraception Unspecified ovarian cyst, unspecified si de Pelvic and perineal pain Attender: Melanie Sinha 08/24 02:00:00 PM EDT - 09/07/2020 02:00:00 PM EDT [facility] ([facility]) OutpatientOFFICE VISIT, EST Attender: Marycarmen julien 05/03/2020 09:30:00 AM EST - 05/03/2020 09:30:00 AM EST Human immunodeficiency virus [HIV] counselingPruritus vulvaeOther specified noninflammatory disorders of vaginaCandidiasis of vulva and vaginaOther sex counselingEncounter for oth general cnsl and advice on contraception [facility] ([facility]) Human immunodeficiency virus [HIV] couns eling Pruritus vulvae Other specified noninflammatory disorder s of vagina Candidiasis of vulva and vagina Other sex counseling Encounter for oth general cnsl and advic e on contraception Attender: Marycarmen Sinha 01:13:00 PM EST - 04/11/2020 01:13:00 PM EST [facility] ([facility]) Attender: Marycarmen Sinha 09:30:00 AM EST - 04/07/2020 09:30:00 AM EST Anemia, unspecifiedEncntr for general ad ult medical exam w/o abnormal [facility] Anemia, unspecified Encntr for general adult medical exam w/ o abnormal findings Attender: Pushpa Sinha 03/2020 03:20:00 PM EST - 04/05/2020 03:20:00 PM EST [facility] ([facility]) OutpatientOFFICE VISIT, EST Attender: Sheri LAINEZ [facility] 04/04/2020 03:15:00 PM EST - 04/04/2020 03:15:00 PM EST Encounter for screening for malignant neoplasm of cervixAcute vaginitisEncounter for oth general cnsl and advice on contraceptionOther sex counselingHuman immunodeficiency virus [HIV] counseling [facility] ([facility] Encounter for screening for malignant ne oplasm of cervix Acute vaginitis Encounter for oth general cnsl and advic e on contraception Other sex counseling Human immunodeficiency virus [HIV] couns eling Attender: TURNER Rizzo 03/20/2020 09:44:00 AM EDT - 03/20/2020 09:44:00 AM EDT [facility] ([facility]) OutpatientPREV VISIT, NEW, AGE 18-39 Attender: Marycarmen Sinha 03/16/2020 01:30:00 PM EDT - 03/16/2020 01:30:00 PM ED T Encounter for surveillance of vagnl ringEncounter for oth general cnsl and advice on contraceptionOther sex counselingHuman immunodeficiency virus [HIV] counselingEncounter for screening for human immunodeficiency virusEncntr screen for infections w sexl mode of transmissEncntr for galvanizer zinc 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) (routine) w/o abn findings [facility] ([facility]) Encounter for surveillance of vagnl ring Encounter for oth general cnsl and advic e on contraception Other sex counseling Human immunodeficiency virus [HIV] couns eling Encounter for screening for human immuno deficiency virus Encntr screen for infections w sexl mode of transmiss Encntr for galvanizer zinc 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) (routine) w/o abn findings Attender: Pushpa Sinha 03:24:00 PM EDT - 02/23/2020 03:24:00 PM EDT [facility] ([facility]) Medications Medication Brand Name Start Date Product Form Dose Route Admi nistrative Instructions Pharmacy Instructions Status Indications Reaction Description Data Source(s) Naproxen 500 MG Oral Tablet naproxen 500 mg tablet naproxen 500 mg tablet 03/02/2021 12:00:00 AM EDT 1.00 {tablet} ORAL active take 1 tablet by oral route 2 times every day with food [facility] ([facility]) 21 DAY Ethinyl Estradiol 0.425130 MG/HR / Etonogestrel 0.005 MG/HR Vaginal Ring [NuvaRing] NuvaRing 0.12 mg-0.015 mg/24 hr vaginal NuvaRing 0.12 mg-0.015 mg/24 hr vaginal 01/13/2021 12:00:00 AM EDT active 21 DAY ethinyl estradiol 0.704910 MG/HR / etonogestrel 0.005 MG/HR Vaginal System [NuvaRing] [facility] ([facility]) Ibuprofen 800 MG Oral Tablet ibuprofen 800 mg tablet ibuprof en 800 mg tablet 12/25/2020 12:00:00 AM EDT completed 1 tab po every 8 hours prn [facility] ([facility]) Misoprostol 0.2 MG Oral Tablet misoprostol 200 mcg tab let misoprostol 200 mcg tablet 12/25/2020 12:00:00 AM EDT completed 4 tabs buccally 24-48 hrs after mifepristone (#4) [facility] ([facility]) Ondansetron 4 MG Oral Tablet ondansetron HCl 4 mg tabl et ondansetron HCl 4 mg tablet 12/25/2020 12:00:00 AM EDT completed 1 tab po every 4 hours prn [facility] ([facility]) Acetaminophen 300 MG / Codeine Phosphate 30 MG Oral Tablet acetaminophen 300 mg- codeine 30 mg tablet acetaminophen 300 mg-codeine 30 mg tablet 12/25/2020 12:00:00 AM EDT active 1-2 tabs po every 4 hours prn pain [facility] ([facility]) MDD 8 tablets 21 DAY Ethinyl Estradiol 0.514129 MG/HR / Etonogestrel 0.005 MG/HR Vaginal Ring [NuvaRing] NuvaRing 0.12 mg-0.015 mg/24 hr vaginal NuvaRing 0.12 mg-0.015 mg/24 hr vaginal 12/25/2020 12:00:00 AM EDT complet ed 21 DAY ethinyl estradiol 0.006388 MG/HR / etonogestrel 0.005 MG/HR Vaginal System [NuvaRing] [facility] ([facility]) Mifepristone 200 MG Oral Tablet [Mifeprex] Mifeprex 20 0 mg tablet Mifeprex 200 mg tablet 12/25/2020 12:00:00 AM EDT complete d mifepristone 200 MG Oral Tablet [Mifeprex] [facility] ([facility]) 21 DAY Ethinyl Estradiol 0.880687 MG/HR / Etonogestrel 0.005 MG/HR Vaginal Ring [NuvaRing] NuvaRing 0.12 mg-0.015 mg/24 hr vaginal NuvaRing 0.12 mg-0.015 mg/24 hr vaginal 09/08/2020 12:00:00 AM EDT complet ed 21 DAY ethinyl estradiol 0.018359 MG/HR / etonogestrel 0.005 MG/HR Vaginal System [NuvaRing] [facility] ([facility]) Fluconazole 150 MG Oral Tablet fluconazole 150 mg tabl et fluconazole 150 mg tablet 05/03/2020 12:00:00 AM EST active take 1 tablet by oral route. Repeat dose in 48 hrs if symptoms do not resolve [facility] ([facility]) Metronidazole 500 MG Oral Tablet metronidazole 500 mg tablet metronidazole 500 mg tablet 04/04/2020 12:00:00 AM EST 1 {tablet} ORAL comp leted take 1 tablet by oral route every 12 hours [facility] ([facility]) 21 DAY Ethinyl Estradiol 0.762825 MG/HR / Etonogestrel 0.005 MG/HR Vaginal Ring [NuvaRing] NuvaRing 0.12 mg-0.015 mg/24 hr vaginal NuvaRing 0.12 mg-0.015 mg/24 hr vaginal 03/16/2020 12:00:00 AM EDT complet ed 21 DAY ethinyl estradiol 0.768718 MG/HR / etonogestrel 0.005 MG/HR Vaginal System [NuvaRing] [facility] ([facility]) Medication administered onsite 21 DAY Ethinyl Estradiol 0.346694 MG/HR / Etonogestrel 0.005 MG/HR Vaginal Ring [NuvaRing] NuvaRing 0.12 mg-0.015 mg/24 hr vaginal NuvaRing 0.12 mg-0.015 mg/24 hr vaginal 03/16/2020 12:00:00 AM EDT complet ed 21 DAY ethinyl estradiol 0.139138 MG/HR / etonogestrel 0.005 MG/HR Vaginal System [NuvaRing] [facility] ([facility]) Fluconazole 150 MG Oral Tablet fluconazole 150 mg tabl et fluconazole 150 mg tablet 01/10/2020 12:00:00 AM EDT active 1 tablet po once [facility] ([facility]) 21 DAY Ethinyl Estradiol 0.598727 MG/HR / Etonogestrel 0.005 MG/HR Vaginal Ring [NuvaRing] NuvaRing 0.12 mg -0.015 mg/24 hr vaginal NuvaRing 0.12 mg -0.015 mg/24 hr vaginal 10/21/2019 12:00:00 AM EDT c ompleted 21 DAY ethinyl estradiol 0.622020 MG/HR / etonogestrel 0.005 MG/HR Vaginal System [NuvaRing] [facility] ([facility]) Probiotic 100 billion cell capsule Lactobac 40/Bifido 3/S.thermop completed [facility] ([facility]) Insurance Providers Payer name Policy type / Coverage type Policy ID Covered republican ID Covered republican's relationship to garcía Policy García Plan Information COMMERCIAL GENERIC U [id number] Self [id number] MEDICAID M [id number] Self [id number] LEX I [id number] Self [id number] LEX I Self [place] [id number] STPP Wrap [id number] Medicaid [id number] [id number] SP [id number] T MEDICAID GME [id number] ELX CARE HEA [id number] [place] [id number] [place] [id number] LEX CARE [place] W [id number] S [id number] UNAVAILABLE UNAVAILA BLE [place] [id number] SP [id number] [place] [id number] SP [id number] [facility] [id number] [facility] [id number] Problems, Conditions, and Diagnoses No Information Surgeries/Procedures Procedure Description Date Indications Data Source(s) CVR Environmental Web Crawler.Svc. Other 03/02/2021 12:00:00 AM EDT - 2020 12:00:00 AM EDT [facility] ([facility]) CVR Med.Svc. Height/Weight 03/02/2021 12 :00:00 AM EDT - 03/02/2021 12:00:00 AM EDT [facility] ([facility]) CVR Blood Pressure 03/02/2021 12:00:00 AM EDT - 2020 12:00:00 AM EDT [facility] ([facility]) Est Pt PC Exp Prob Focused 03/02/2021 12 :00:00 AM EDT - 03/02/2021 12:00:00 AM EDT [facility] ([facility]) CVR Environmental Web Crawler.Svc. STI / H 01/23/2021 12:00:00 AM EDT - 01/23/2021 12:00:00 AM EDT [facility] ([facility]) CVR Environmental Web Crawler.Svc. Contraceptive 01/23/2021 12 :00:00 AM EDT - 01/23/2021 12:00:00 AM EDT [facility] ([facility]) CVR Med.Svc. Height/Weight 01/23/2021 12 :00:00 AM EDT - 01/23/2021 12:00:00 AM EDT [facility] ([facility]) CVR Blood Pressure 01/23/2021 12:00:00 AM EDT - 2020 12:00:00 AM EDT [facility] ([facility]) HCS Without Test 01/23/2021 12:00:00 AM EDT - 01/24/20 12:00:00 AM EDT [facility] ([facility]) OFFICE VISIT, EST. Post AB 01/23/2021 12 :00:00 AM EDT - 01/23/2021 12:00:00 AM EDT [facility] ([facility]) CVR Environmental Web Crawler.Svc. STI / H 01/01/2021 12:00:00 AM EDT - 01/01/2021 12:00:00 AM EDT [facility] ([facility]) CVR Environmental Web Crawler.Svc. Other 01/01/2021 12:00:00 AM EDT - 2020 12:00:00 AM EDT [facility] ([facility]) CVR Environmental Web Crawler.Svc. Contraceptive 01/01/2021 12 :00:00 AM EDT - 01/01/2021 12:00:00 AM EDT [facility] ([facility]) CVR Med.Svc. Height/Weight 01/01/2021 12 :00:00 AM EDT - 01/01/2021 12:00:00 AM EDT [facility] ([facility]) CVR Blood Pressure 01/01/2021 12:00:00 AM EDT - 2020 12:00:00 AM EDT [facility] ([facility]) OFFICE VISIT, EST Post AB 01/01/2021 12: 00:00 AM EDT - 01/01/2021 12:00:00 AM EDT [facility] ([facility]) HEMOGLOBIN 12/25/2020 12:00:00 AM EDT - 12/25/2020 1 2:00:00 AM EDT [facility] ([facility]) CAPILLARY BLOOD DRAW 12/25/2020 12:00:00 AM EDT - 12/25/2020 12:00:00 AM EDT [facility] ([facility]) N.GONORRHOEAE, DNA, AMP PROB 12/25/2020 12:00:00 AM EDT - 12/25/2020 12:00:00 AM EDT [facility] ([facility]) CHYLMD TRACH, DNA, AMP PROBE 12/25/2020 12:00:00 AM EDT - 12/25/2020 12:00:00 AM EDT [facility] ([facility]) URINE TEST 12/25/2020 12:00:00 AM EDT - 12/25/2020 12:00:00 AM EDT [facility] ([facility]) Est. Patient MAB Detailed 12/25/2020 12: 00:00 AM EDT - 12/25/2020 12:00:00 AM EDT [facility] ([facility]) CVR Environmental Web Crawler.Svc. STI / H 12/25/2020 12:00:00 AM EDT - 12/25/2020 12:00:00 AM EDT [facility] ([facility]) Ultrasound Uterus 12/25/2020 12 :00:00 AM EDT - 12/25/2020 12:00:00 AM EDT [facility] ([facility]) CVR Environmental Web Crawler.Svc. Other 12/25/2020 12:00:00 AM EDT - 2020 12:00:00 AM EDT [facility] ([facility]) CVR Environmental Web Crawler.Svc. Contraceptive 12/25/2020 12 :00:00 AM EDT - 12/25/2020 12:00:00 AM EDT [facility] ([facility]) CVR Med.Svc. Height/Weight 12/25/2020 12 :00:00 AM EDT - 12/25/2020 12:00:00 AM EDT [facility] ([facility]) CVR Blood Pressure 12/25/2020 12:00:00 AM EDT - 2020 12:00:00 AM EDT [facility] ([facility]) CVR Med.Svc. Other 12/25/2020 12:00:00 AM EDT - 2020 12:00:00 AM EDT [facility] ([facility]) Misoprostol, oral, 200 mcg 4 Tabs MAB 12:00:00 AM EDT - 12/25/2020 12:00:00 AM EDT [facility] ([facility]) Mifeprex, oral, 200 mg 12/25/2020 12:00: 00 AM EDT - 12/25/2020 12:00:00 AM EDT [facility] ([facility]) CAPILLARY BLOOD DRAW 12/25/2020 12:00:00 AM EDT - 12/25/2020 12:00:00 AM EDT [facility] ([facility]) CVR Environmental Web Crawler.Svc. STI / H 09/08/2020 12:00:00 AM EDT - 09/08/2020 12:00:00 AM EDT [facility] ([facility]) CVR Environmental Web Crawler.Svc. Other 09/08/2020 12:00:00 AM EDT - 2020 12:00:00 AM EDT [facility] ([facility]) CVR Environmental Web Crawler.Svc. Contraceptive 09/08/2020 12 :00:00 AM EDT - 09/08/2020 12:00:00 AM EDT [facility] ([facility]) CVR Med.Svc. Height/Weight 09/08/2020 12 :00:00 AM EDT - 09/08/2020 12:00:00 AM EDT [facility] ([facility]) CVR Blood Pressure 09/08/2020 12:00:00 AM EDT - 2020 12:00:00 AM EDT [facility] ([facility]) HCS Without Test 09/08/2020 12:00:00 AM EDT - 09/09/19 21 12:00:00 AM EDT [facility] ([facility]) OFFICE VISIT, EST 09/08/2020 12:00:00 AM EDT - 021 12:00:00 AM EDT [facility] ([facility]) CVR Environmental Web Crawler.Svc. Other 05/03/2020 12:00:00 AM EST - 2019 12:00:00 AM EST [facility] ([facility]) CVR Med.Svc. Height/Weight 05/03/2020 12 :00:00 AM EST - 05/03/2020 12:00:00 AM EST [facility] ([facility]) CVR Blood Pressure 05/03/2020 12:00:00 AM EST - 2019 12:00:00 AM EST [facility] ([facility]) HCS Without Test 05/03/2020 12:00:00 AM EST - 05/03/20 20 12:00:00 AM EST [facility] ([facility]) OFFICE VISIT, EST 05/03/2020 12:00:00 AM EST - 020 12:00:00 AM EST [facility] ([facility]) METOBOLIC PANEL TOTAL CA 04/07/2020 12:0 0:00 AM EST - 04/07/2020 12:00:00 AM EST [facility] ([facility]) CBC W/DIFFERENTIAL 04/07/2020 12:00:00 AM EST - 2019 12:00:00 AM EST [facility] ([facility]) Annual Est PC 18-39 04/07/2020 12:00:00 AM EST - 04/07 12:00:00 AM EST [facility] ([facility]) SMEAR, WET MOUNT, SALINE/INK 04/04/2020 12:00:00 AM EST - 04/04/2020 12:00:00 AM EST [facility] ([facility]) ASSAY OF BODY FLUID ACIDITY 04/04/2020 1 2:00:00 AM EST - 04/04/2020 12:00:00 AM EST [facility] ([facility]) CVR Environmental Web Crawler.Svc. STI / H 04/04/2020 12:00:00 AM EST - 04/04/2020 12:00:00 AM EST [facility] ([facility]) CVR Environmental Web Crawler.Svc. Other 04/04/2020 12:00:00 AM EST - 2019 12:00:00 AM EST [facility] ([facility]) CVR Environmental Web Crawler.Svc. Contraceptive 04/04/2020 12 :00:00 AM EST - 04/04/2020 12:00:00 AM EST [facility] ([facility]) CVR Med.Svc. Vaginitis Rx 04/04/2020 12: 00:00 AM EST - 04/04/2020 12:00:00 AM EST [facility] ([facility]) CVR Med.Svc. Height/Weight 04/04/2020 12 :00:00 AM EST - 04/04/2020 12:00:00 AM EST [facility] ([facility]) CVR Blood Pressure 04/04/2020 12:00:00 AM EST - 2019 12:00:00 AM EST [facility] ([facility]) HCS Without Test 04/04/2020 12:00:00 AM EST - 04/04/20 20 12:00:00 AM EST [facility] ([facility]) CYTOPATH, C/V, THIN LAYER 04/04/2020 12: 00:00 AM EST - 04/04/2020 12:00:00 AM EST [facility] ([facility]) OFFICE VISIT, EST 04/04/2020 12:00:00 AM EST - 2 020 12:00:00 AM EST [facility] ([facility]) CVR Environmental Web Crawler.Svc. STI / H 03/16/2020 12:00:00 AM EDT - 03/16/2020 12:00:00 AM EDT [facility] ([facility]) CVR Environmental Web Crawler.Svc. Other 03/16/2020 12:00:00 AM EDT - 2019 12:00:00 AM EDT [facility] ([facility]) CVR Environmental Web Crawler.Svc. Contraceptive 03/16/2020 12 :00:00 AM EDT - 03/16/2020 12:00:00 AM EDT [facility] ([facility]) CVR Med.Svc. Abdominal Palp. 03/16/2020 12:00:00 AM EDT - 03/16/2020 12:00:00 AM EDT [facility] ([facility]) CVR Med.Svc. Breast Exam 03/16/2020 12:0 0:00 AM EDT - 03/16/2020 12:00:00 AM EDT [facility] ([facility]) CVR Med.Svc. Heart/Lung Ausc. 03/16/2020 12:00:00 AM EDT - 03/16/2020 12:00:00 AM EDT [facility] ([facility]) CVR Med.Svc. Thyroid Palp. 03/16/2020 12 :00:00 AM EDT - 03/16/2020 12:00:00 AM EDT [facility] ([facility]) CVR Med.Svc. Height/Weight 03/16/2020 12 :00:00 AM EDT - 03/16/2020 12:00:00 AM EDT [facility] ([facility]) CVR Blood Pressure 03/16/2020 12:00:00 AM EDT - 2019 12:00:00 AM EDT [facility] ([facility]) PREV VISIT, NEW, AGE 18-39 03/16/2020 12 :00:00 AM EDT - 03/16/2020 12:00:00 AM EDT [facility] ([facility]) ROUTINE VENIPUNCTURE 03/16/2020 12:00:00 AM EDT - 03/16/2020 12:00:00 AM EDT [facility] ([facility]) SYPHILLIS BLOOD SEROLOGY, QUALITATIVE 12:00:00 AM EDT - 03/16/2020 12:00:00 AM EDT [facility] ([facility]) HTLV/HIV CONFIRMATORY TEST 03/16/2020 12 :00:00 AM EDT - 03/16/2020 12:00:00 AM EDT [facility] ([facility]) HEPATITIS C AB TEST 03/16/2020 12:00:00 AM EDT - 03/16 12:00:00 AM EDT [facility] ([facility]) N.GONORRHOEAE, URINE 03/16/2020 12:00:00 AM EDT - 03/16/2020 12:00:00 AM EDT [facility] ([facility]) CHYLMD TRACH, URINE 03/16/2020 12:00:00 AM EDT - 03/16 12:00:00 AM EDT [facility] ([facility]) Results ID Date Data Source [id number] 12/25/2020 03:26:02 PM EDT [facility] ([facility]) Name Value Range Interpretation Code Description Data Miley rce(s) Supporting Document(s) PositiveLot: [id number]: 05/25/2022 Abnormal (applies to non-numeric results) High Sensitivity [facility] ID Date Data Source [id number] 12/25/2020 03:25:31 PM EDT [facility] ([facility]) Name Value Range Interpretation Code Description Data Miley rce(s) Supporting Document(s) 11.60 gm/dL Hemoglobin [facility] ([facility]) ID Date Data Source [id number] 12/25/2020 12:00:00 AM EDT [facility] ([facility]) Name Value Range Interpretation Code Description Data Miley rce(s) Supporting Document(s) Negative Normal (applies to non-numeric resul ts) Urine CT/GC Combo - GC [facility] ([facility]) : No Performed by: SANDRO ([id number]) ID Date Data Source [id number] 12/25/2020 12:00:00 AM EDT [facility] ([facility]) Name Value Range Interpretation Code Description Data Miley rce(s) Supporting Document(s) Negative Normal (applies to non-numeric resul ts) Urine CT/GC Combo - CT [facility] ([facility]) ID Date Data Source [id number] 08/20/2020 10:50:00 AM EDT [facility] Name Value Range Interpretation Code Description Data Miley rce(s) Supporting Document(s) SARS-CoV-2 (COVID-19) Not Detected [facility] This lab was ordered by [facility] and reported by [facility]. ID Date Data Source [id number] 04/04/2020 04:38:18 PM EST [facility] ([facility]) Name Value Range Interpretation Code Description Data Miley rce(s) Supporting Document(s) Hyphae/Chuyita: no; Budding yeast: no; Trich: no; Clue cells: yes (>=20%); WBCs: no; Amine/Whiff test: positive; pH: 5.0 Abnormal (applies to non-numeric results) Wet Prep [facility] ([facility]) ID Date Data Source [id number] 04/04/2020 04:37:49 PM EST [facility] ([facility]) Name Value Range Interpretation Code Description Data Miley rce(s) Supporting Document(s) pH: 5.0. Vaginal pH [facility] Procedure Social History Code Duration Value Status Description Data Source(s ) Smoking 03/12/2021 12:00:00 AM EDT Never smoker completed Never s moker [facility] ([facility]) 03/02/2021 12:00:00 AM EDT Current non-smoker completed C urrent non-smoker [facility] ([facility]) Vital Signs ID Date Data Source UNK Name Value Range Interpretation Code Description Data Source(s) Body height 160.02 cm 160.02 cm [facility] Body weight 87.543 kg 87.543 kg [facility] ([facility]) Systolic blood pressure 110 mm[Hg] 110 mm[Hg] N [facility] ([facility]) Diastolic blood pressure 82 mm[Hg] 82 mm[Hg] [facility] ([facility]) Heart rate 88 /min 88 /min [facility] Body temperature 37.22 Clover 37.22 Clover [facility] ([facility]) Respiratory rate 20 /min 20 /min [facility] ([facility]) Body mass index (BMI) [Ratio] 34.19 kg/m2 Overweight 34.19 kg/m2 [facility] ([facility]) Oxygen saturation in Arterial blood by Pulse oximetry 98 % 98 % [facility] ([facility]) Body height 160.02 cm 160.02 cm [facility] Body height 160.02 cm 160.02 cm [facility] Body height 160.02 cm 160.02 cm [facility] Body weight 91.626 kg 91.626 kg [facility]) Systolic blood pressure 133 mm[Hg] 133 mm[Hg] N [facility] ([facility]) Diastolic blood pressure 79 mm[Hg] 79 mm[Hg] [facility] ([facility]) Body mass index (BMI) [Ratio] 35.78 kg/m2 Overweight 35.78 kg/m2 [facility] ([facility]) Body height 160.02 cm 160.02 cm [facility] Body weight 86.727 kg 86.727 kg [facility] ([facility]) Systolic blood pressure 117 mm[Hg] 117 mm[Hg] N [facility] ([facility]) Diastolic blood pressure 74 mm[Hg] 74 mm[Hg] [facility] ([facility]) Body mass index (BMI) [Ratio] 33.87 kg/m2 Overweight 33.87 kg/m2 [facility] ([facility]) Body height 160.02 cm 160.02 cm [facility] Body weight 74.843 kg 74.843 kg [facility] ([facility] Body mass index (BMI) [Ratio] 29.23 kg/m2 Overweight 29.23 kg/m2 [facility] ([facility]) Body height 160.02 cm 160.02 cm [facility] Body weight 77.111 kg 77.111 kg [facility] ([facility]) Systolic blood pressure 122 mm[Hg] 122 mm[Hg] N [facility] ([facility]) Diastolic blood pressure 80 mm[Hg] 80 mm[Hg] [facility] ([facility]) Heart rate 96 /min 96 /min [facility] Body temperature 35.33 Clover 35.33 Clover [facility] ([facility]) Body mass index (BMI) [Ratio] 30.11 kg/m2 Overweight 30.11 kg/m2 [facility] ([facility]) Oxygen saturation in Arterial blood by Pulse oximetry 98 % 98 % [facility] ([facility]) Body height 160.02 cm 160.02 cm [facility] Body weight 77.111 kg 77.111 kg [facility]) Systolic blood pressure 130 mm[Hg] 130 mm[Hg] N [facility] ([facility]) Diastolic blood pressure 88 mm[Hg] 88 mm[Hg] [facility] ([facility]) Body mass index (BMI) [Ratio] 30.11 kg/m2 Overweight 30.11 kg/m2 [facility] ([facility]) Body height 160.02 cm 160.02 cm [facility] Body weight 77.111 kg 77.111 kg [facility] Systolic blood pressure 126 mm[Hg] 126 mm[Hg] N [facility] ([facility]) Diastolic blood pressure 70 mm[Hg] 70 mm[Hg] [facility] ([facility]) Body mass index (BMI) [Ratio] 30.11 kg/m2 Overweight 30.11 kg/m2 [facility] ([facility]) Patient Treatment Plan of Care Planned Activity Planned Date Details Description Data Source (s) Naproxen 500 MG Oral Tablet 03/02/2021 12:00:00 AM EDT [facility] ([facility]) 21 DAY Ethinyl Estradiol 0.752574 MG/HR / Etonogestrel 0.005 MG/HR Vaginal Ring [NuvaRing] 01/13/2021 12:00:00 AM EDT [facility] ([facility]) 21 DAY Ethinyl Estradiol 0.647310 MG/HR / Etonogestrel 0.005 MG/HR Vaginal Ring [NuvaRing] 12/25/2020 12:00:00 AM EDT [facility] ([facility]) Acetaminophen 300 MG / Codeine Phosphate 30 MG Oral Ta blet 12/25/2020 12:00:00 AM EDT [facility] Ondansetron 4 MG Oral Tablet 12/25/2020 12:00:00 AM EDT [facility] ([facility]) Ibuprofen 800 MG Oral Tablet 12/25/2020 12:00:00 AM EDT [facility] ([facility]) Misoprostol 0.2 MG Oral Tablet 12/25/2020 12:00:00 AM EDT [facility] ([facility]) Mifepristone 200 MG Oral Tablet [Mifeprex] 12/25/2020 12:00:00 AM E DT [facility] ([facility]) 21 DAY Ethinyl Estradiol 0.992008 MG/HR / Etonogestrel 0.005 MG/HR Vaginal Ring [NuvaRing] 09/08/2020 12:00:00 AM EDT [facility] ([facility]) Fluconazole 150 MG Oral Tablet 05/03/2020 12:00:00 AM EST [facility] ([facility]) Metronidazole 500 MG Oral Tablet 04/04/2020 12:00:00 AM EST [facility] ([facility]) 21 DAY Ethinyl Estradiol 0.583105 MG/HR / Etonogestrel 0.005 MG/HR Vaginal Ring [NuvaRing] 03/16/2020 12:00:00 AM EDT [facility] ([facility]) 21 DAY Ethinyl Estradiol 0.483935 MG/HR / Etonogestrel 0.005 MG/HR Vaginal Ring [NuvaRing] 03/16/2020 12:00:00 AM EDT [facility] ([facility]) Fluconazole 150 MG Oral Tablet 01/10/2020 12:00:00 AM EDT [facility] ([facility]) 21 DAY Ethinyl Estradiol 0.870793 MG/HR / Etonogestrel 0.005 MG/HR Vaginal Ring [NuvaRing] 10/21/2019 12:00:00 AM EDT [facility] ([facility]) Probiotic 100 billion cell capsule [facility] ([facility])
--- OUTSIDE RECORDS SUMMARY | 2021-03-18 18:11 | CCD | Continuity of Care Document ---
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 Other CVR Blood Pressure CVR Med.Svc. Height/Weight CVR Senior Electrical Estimator.Svc. Contraceptive CVR Senior Electrical Estimator.Svc. Other Ultrasound Uterus CVR Senior Electrical Estimator.Svc. STI / H Est. Patient MAB Detailed URINE TEST CHYLMD TRACH, DNA, AMP PROBE N.GONORRHOEAE, DNA, AMP PROB CAPILLARY BLOOD DRAW HEMOGLOBIN Results Test Name Date and Time Measure Units Reference Range Abnormal Flag St atus Comments Panel Description: Chlamydia trachomatis rRNA [Presence] in Specimen by NINFA with probe detection Final Urine CT/GC Combo - CT 00:00:00 Negative N Final Performed by:
CDD ([id number])

Panel Description: Amplified GC - Urine Final Urine CT/GC Combo - GC 00:00:00 Negative N Final : No

Performed by:
CDD ([id number])

Panel Description: High Sensitivity Urine Test Fi nal High Sensitivity Urine Test 15:26:02 P ositiveLot: [id number]: 05/25/2022 A Final Panel Description: Hemoglobin Final Hemoglobin 15:25:31 11.60 gm/dL Christen cota Advance Directives Directive Yes / No Effective Date File Name No Information Encounters Encounter Description Practice Location Reason(s) For Visit Diagnose s Date Provider Providers Copied on Encounter [facility], [address], [place], [id number], [place] tel:[phone] [facility] [place] Medication (chief complaint) Encounter for test, result positiveProblems related to unwanted pregnancy state, incidentalEncounter for elective termination of pregnancyEncounter for other specified special examinationsUnspecified blood type, Rh positiveEncntr screen for dis of the bld/bld-form org/immun mechnsmOther sex counselingEncounter for oth general cnsl and advice on contraceptionEncntr screen for infections w sexl mode of transmissHigh risk heterosexual behavior Christian Goldstein. [address], [place], [id number], [place]. tel:[phone] Referring Provider: Susanne Gonzales, [address] [place] [address], [id number]. tel:[phone] [facility], [address] [place] [address], [id number], [place] tel:[phone] [facility] Pelvic and perineal painUnspecified ovarian cyst, unspecified sideEncounter for oth general cnsl and advice on contraceptionEncounter for surveillance of vagnl ringOther sex counselingHuman immunodeficiency virus [HIV] counseling Christian Goldstein. [address], [place], [id number], [place]. tel:[phone] Referring Provider: Susanne Gonzales, [address], [place], [id number]. tel:[phone] [facility], [address], [place], [id number], [place] tel:[phone] [facility] Encounter for oth g eneral cnsl and advice on contraceptionOther sex counselingCandidiasis of vulva and vaginaOther specified noninflammatory disorders of vaginaPruritus vulvaeHuman immunodeficiency virus [HIV] counseling Dwello Marycarmen duke. [address] [place] [address], [id number], [place]. tel:[phone] Referring Provider: Marycarmen Patricia, [address] [place] [address], [id number]. tel:[phone] [facility], [address] [place] [address], [id number], [place] tel:[phone] [facility] Encntr for general adult medical exam w/o abnormal findingsAnemia, unspecified Dwello Marycarmen nguyen. [address] [place] [address], [id number], [place]. tel:[phone] Referring Provider: Marycarmen Patricia, [address] [place] [address], [id number]. tel:[phone] [facility], [address] [place] [address], [id number], [place] tel:[phone] [facility] Human immunodeficie ncy virus [HIV] counselingOther sex counselingEncounter for oth general cnsl and advice on contraceptionAcute vaginitisEncounter for screening for malignant neoplasm of cervix Turner Wade. [address] [place] [address], [id number], [place]. tel:[phone] Referring Provider: Sheri Tompkins, [address] [place], [place], [id number]. 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 [address] [place] [address], [id number], . tel:[phone] Referring Provider: Marycarmen Patricia, [address] [place] [address], [id number]. tel:[phone] [facility], [address] [place] [address], [id number], [place] tel:[phone] [facility] Encounter for oth g eneral cnsl and advice on contraceptionEncounter for surveillance of vagnl ringCandidiasis of vulva and vagina Alvina Borges. [address] [place] [address], [id number], [place]. tel:[phone] Referring Provider: Pushpa Tomlinson, [address] [place] [address], [id number]. tel:[phone] [facility], [address] [place] [address], [id number], [place] tel:[phone] [facility] [place] Other sex counselin gEncounter for oth general cnsl and advice on contraceptionEncntr for f/u exam aft trtmt for cond oth than malig neoplm Paula Navarro. [address] [place] [address], [id number], [place]. tel:[phone] Referring Provider: Melanie Mitchell, [address] [place] [address], [id number]. tel:[phone] [facility], [address] [place] [address], [id number], [place] tel:[phone] [facility] [place] Encounter for pregn delmi test, result positiveEncntr screen for infections w sexl mode of transmissOther sex counselingEncounter for oth general cnsl and advice on contraceptionEncounter for initial prescription of vagnl ringEncounter for elective termination of pregnancyEncounter for other specified special examinationsUnspecified blood type, Rh positiveProblems related to unwanted pregnancy state, incidentalHigh risk heterosexual behaviorHuman immunodeficiency virus [HIV] counselingNausea Bill Amin. [address] [place] [address], [id number], . tel:[phone] Referring Provider: Eloisa Khan, [address] [place], [place], [id number]. tel:[phone] [facility], [address] [place] [address], [id number], [place] tel:[phone] [facility] [place] Other sex counselin gEncounter for oth general cnsl and advice on contraceptionHuman immunodeficiency virus [HIV] counselingCandidiasis of vulva and vagina Paula rios [address] [place] [address], [id number], [place]. tel:[phone] Referring Provider: Melanie Mitchell, [address] [place] [address], [id number]. tel:[phone] [facility], [address] [place] [address], [id number], [place] tel:[phone] [facility] [place] Inapprop chg quanti tav hCG in early Paula Navarro. [address] [place] [address], [id number], [place]. tel:[phone] Referring Provider: Melanie Mitchell, [address], [place], [id number]. tel:[phone] [facility], [address] [place] [address], [id number], [place] tel:[phone] [facility] [place] Other sex counselin gEncounter for oth general cnsl and advice on contraceptionEncntr for f/u exam aft trtmt for cond oth than malig neoplmEncounter for prescription of emergency contraception Encounter for initial prescription of contraceptive pillsInapprop chg quantitav hCG in early Bill Amin. [address] [place] [address], [address] [place] [address], . tel:[phone] Referring Provider: Eloisa Khan, [address] [place] [address], [address] [place] [address]. tel:[phone] [facility] [address], [address] [place] [address], [place] tel:[phone] [facility] Encounter for elect chava termination of Bill Amin. [address] [place] [address], [address] [place] [address], . tel:[phone] Referring Provider: Eloisa Khan, [address] [place], [place], [id number]. tel:[phone] [facility], [address] [place] [address], [address] [place] [address], [place] tel:[phone] [facility] Encounter for pregn [...] examinationEncounter for other preprocedural examination Paula Navarro. [address] [place] [address], [id number], [place]. tel:[phone] Referring Provider: Melanie Mitchell, [address] [place] [address], [address] [place] [address]. tel:[phone] Family History Family Member Diagnosis Age At [...] Covered democrat ID Authorization(s ) Medicaid MC [id number] Social History Type Description Quantity Date Captured [...] BMI percentile Pulse Ox In haled Ox 3:17 PM 63.00 in . lbs 35.78 kg/meter(2) 133/79 m m[Hg] Chief Complaint And Reason For Visit Most recent encounter only, dated '12/25/2020 14:45'. Medication (chief complaint) Reason For Referral Reason For Referral No Information Plan Of Treatment Date Type Action Status Appointment Ashlee Boucher -mab 1 Week F/ u BOOKED Appointment Newton Boucheraya -4 Week MAB F/ U BOOKED Appointment Ashlee Boucher BOOKED History Of Present Illness Encounter Date Complaint History Of Present I llness No Information Functional Status Date Functional Assessment No Information Medications Administered Medication Instructions Dosage Effective Dates (start - stop) Sta tus Comments No Information Instructions Date Instruction Additional Informati on No Information Assessments Type Assessment Date assessment Encounter for test, result pos itive assessment Problems related to unwanted A assessment state, incidental assessment Encounter for elective termination of pr egnancy assessment Encounter for other specified special ex aminations assessment Unspecified blood type, Rh positive assessment Encntr screen for dis of the bld/bld-for m org/immun mechnsm assessment Other sex counseling assessment Encounter for oth general cnsl and advic e on contraception assessment Encntr screen for infections w sexl mode of transmiss assessment High risk heterosexual behavior 021 Goals Health Concern Goal Type Priority Status Date No Information Medical Equipment Description Device [place] Device Identifier Effective Jose D es (start - stop) Status No Information Mental Status Date Cognitive Assessment Orientation - Oriented to ti me, place, person, situation.Normal Orientation Health Concerns Observation Date No Information Concern Status Date No Information Physical Examination Exam Findings Details Neurological Normal Level of consciousne ss - Normal. Orientation - Normal. Psychiatric Normal Orientation - Crane ed to time, place, person & situation. Genitourinary Normal Urethral meatus - No rmal. Urethra - Normal. External genitalia - Normal. Glands - Normal. Perineum - Normal. Anus - Normal. Vagina - Normal. Cervix - Normal. Uterus - Normal. Adnexa - Normal. Bladder - Normal. Adequate sized pelvis. No suprapubic tenderness. No CVA tenderness. No flank mass. No vaginal discharge. Genitourinary * Uterus - Uterine srinivasan entation: Ant. Uterus size: less than 6 weeks. Rectal deferred.
[2021-03-18 18:20] LABS: HCG, SERUM QUALITATIVE NEGATIVE (NEGATIVE)
[2021-03-18 18:28] LABS: ALBUMIN 3.8 GM/DL (3.2-5.2); ALT/SGPT 21 U/L (12-78); BILIRUBIN,DIRECT 0.2 MG/DL (0.0-0.2); BILIRUBIN,TOTAL 0.6 MG/DL (0.2-1.0); BLOOD UREA NITROGEN 8 MG/DL (7-18); CALCIUM LEVEL 8.6 MG/DL (8.5-10.1); CARBON DIOXIDE LEVEL 27 MEQ/L (21-32); CHLORIDE LEVEL 106 MEQ/L (98-107); CK-MB VALUE MASS 5.8 NG/ML (<3.6); CPK CREATINE PHOSPHOKINASE 1101 U/L (26-192); CREATININE FOR GFR 0.74 MG/DL (0.55-1.30); FREE T4 1.09 NG/DL (0.76-1.46); GLOMERULAR FILTRATION RATE > 60.0 (>60); GLUCOSE, FASTING 78 MG/DL (70-100); LIPASE 54 U/L (73-393); MB/CK RELATIVE INDEX 0.53 (< OR =4); POTASSIUM SERUM 3.3 MEQ/L (3.5-5.1); SODIUM LEVEL 140 MEQ/L (136-145); TOTAL PROTEIN 7.5 GM/DL (6.4-8.2); TROPONIN I 0.15 NG/ML (< 0.10)
[2021-03-18] MEDS ORDERED: POTASSIUM CHLORIDE 10MEQ SR TABLET PO ONE (19:00)
--- NOTE | 2021-03-18 19:08 | REP ---
INDICATION: CHEST PAIN. COMPARISON: PA and lateral chest, 05/28/2019. TECHNIQUE: Upright PA and lateral chest images were obtained. FINDINGS: There is a stable right pericardial density consistent with a pericardial fat pad. The heart borders mediastinum and pulmonary vascular pattern are otherwise unremarkable. The lungs are clear. The upper abdominal bowel gas pattern is normal. There are no bony abnormalities of the chest. IMPRESSION: No evidence of acute cardiopulmonary pathology. No significant change. <Electronically signed by Zeferino Steven > 03/18/21 [id number]
[2021-03-18] MEDS ORDERED: HOME MED LIST COMPLETE! XX SCH (19:30)
[2021-03-18 20:25] LABS: RSV AMPLIFICATION NEGATIVE (NEGATIVE)
[2021-03-18] MEDS ORDERED: ACETAMINOPHEN TAB 650MG DOSE (2X325MG) PO PRN (20:45)
[2021-03-18] MEDS ORDERED: MOM 30ML SUSPENSION UDC PO PRN (20:45)
[2021-03-18] MEDS ORDERED: METOCLOPRAMIDE INJ 10MG/2ML VIAL (J2765 PER 1) IV PRN (20:45)
--- NOTE | 2021-03-18 20:48 | HPEPDOC ---
[facility] Medical History & Physical Date of Admission Mar 18, 2021 Date of Service: Mar 18, 2021 History and Physical CHIEF COMPLAINT: Nausea and vomiting HISTORY OF PRESENT ILLNESS: 25-year-old female presents because of persistent nausea and vomiting and poor appetite. Patient endorses that yesterday she was drinking alcohol (hard liquor instead of wine which is what she is used to) after which she started vomiting a nd retching even she should notice a one-time episode of approximately 1 tablespoon of blood while vomiting. She denies seeing blood while throwing up in the past. She also endorses that her appetite has been down she has been able to keep down much fluids or food since yesterday. She denies any chest pain or shortness of breath. Denies muscle pain. Denies fevers or chills. She endorses feeling a little weak and dizzy at times. After receiving antiemetics in the emergency department she denies any more nausea or vomiting. In the emergency department patient was found to have rhabdomyolysis, elevated troponin, and reported hematemesis. Patient being admitted to the hospital for further medical workup and evaluation. PAST MEDICAL/SURGICAL HISTORY: Denies medical history Endorses history of cholecystectomy SOCIAL HISTORY: Endorses drinking alcohol only socially Denies tobacco use Denies illicit drug use FAMILY HISTORY: Reviewed and none contributory to this admission ALLERGIES: Please see below. REVIEW OF SYSTEMS: 10 point review of systems complete all negative otherwise stated in HPI HOME MEDICATIONS: Please see below. PHYSICAL EXAMINATION: Constitutional: Awake and alert, in no apparent distress ENT: Sclera are clear. Mucosa is moist. Respiratory: Lungs CTA bilaterally. No respiratory distress. Cardiovascular: RRR S1 and S2 are normal Gastrointestinal: Abdomen is soft, non distended, non tender, BS present. Musculoskeletal: No lower extremity edema. Neurologic: No focal neurological deficit. Mental Status: A&O x3, normal affect LABORATORY DATA: See below. IMAGING: See chart MICROBIOLOGY: Please see below. ASSESSMENT/PLAN 25F here with nausea and vomiting as well as hematemesis after drinking alcohol found to have mild rhabdo and elevated toponin. Admitted for medical management. # Rhabdomyolysis: Likely associated with dehydration from vomiting and poor PO intake. Urine tox screen pending. Trend CPK. IVFs. # Troponemia: EKG shows no ST segrement elevations. Patient doesn't report any chest pain. Probably 2/2 rhabdo/demand. Trend trops. tele monitoring. # Nausea and vomiting: improved. Continue IV reglan PRN. IVFs. advance diet as t olerated. # Hematemesis: probably associated with vomiting/retching maybe gadiel bridgett tear. Monitor for further hematemesis. Inpatient vs outpatient EGD may be necessary. Trend HH # Obesity: BMI 37. Complicates care. # DVT prophylaxis: SCDs/Teds only due to hematemesis A Yousef Hospitalist Vital Signs Vital Signs Date Time Temp Pulse Resp B/P (MAP) Pulse Ox O2 Delivery O2 Flow Rate FiO2 03/18/21 19:39 89 20 115/68 (84) 100 Room Air 03/18/21 18:00 98.1 Laboratory Data Labs 24H Laboratory Tests 2 03/18/21 17:38: Immature Granulocyte % (Auto) 0.1, Neutrophils (%) (Auto) 47.3, Lymphocytes (%) (Auto) 37.5, Monocytes (%) (Auto) 9.5H, Eosinophils (%) (Auto) 5.2H, Basophils (%) (Auto) 0.4, Neutrophils # (Auto) 3.3, Lymphocytes # (Auto) 2.6, Monocytes # (Auto) 0.7, Eosinophils # (Auto) 0.4, Basophils # (Auto) 0.0, Nucleated Red Blood Cells % (auto) 0.0, Anion Gap 7L, Glomerular Filtration Rate > 60.0, Calcium Level 8.6, Total Bilirubin 0.6, Direct Bilirubin 0.2, Aspartate Amino Transf (AST/SGOT) 36, Alanine Aminotransferase (ALT/SGPT) 21, Alkaline Phosphatase 81, Total Creatine Kinase 1101H, Creatine Kinase MB 5.8H, Creatine Kinase MB Relative Index 0.53, Troponin I 0.15H, Total Protein 7.5, Albumin 3.8, Albumin/Globulin Ratio 1.0L, Lipase 54L, Thyroid Stimulating Hormone (TSH) 2.030, Free Thyroxine 1.09, Human Chorionic Gonadotropin, Qual NEGATIVE 03/18/21 19:36: Coronavirus (COVID-19)(PCR) NEGATIVE, Influenza Type A (RT-PCR) NEGATIVE, Influenza Type B (RT-PCR) NEGATIVE, Respiratory Syncytial Virus (PCR) NEGATIVE CBC/BMP Laboratory Tests 03/18/21 17:38 Home Medications No Active Prescriptions or Reported Meds Allergies Coded Allergies: Penicillins (Verified Allergy, Intermediate, vomiting , 05/28/19) GEORGIANA RICHARDS MD Mar 18, 2021 20:48
[2021-03-18] MEDS: NS 1,000 ML IV SCH (22:24)
[2021-03-18 23:53] VITALS: BP 121/75
--- OUTSIDE RECORDS SUMMARY | 2021-03-19 00:54 | CCD ---
Author Author [facility] Organization [facility] Address Unknown Phone Unavailable Care Team Providers Care Senior Peoplesoft Developer Name Role Phone Guillermina Mitchell Unavailable Unavailable [...] Unavailable Unavailable Tompkins, Sheri Unavailable Unavailable Green ACTIVATED SLUDGE OPERATOR ACTIVATED SLUDGE OPERATOR, Susanne Unavailable Unavailable Green ACTIVATED SLUDGE OPERATOR ACTIVATED SLUDGE OPERATOR, Susanne Unavailable Unavailable Green ACTIVATED SLUDGE OPERATOR ACTIVATED SLUDGE OPERATOR, Susanne Unavailable Unavailable Green ACTIVATED SLUDGE OPERATOR ACTIVATED SLUDGE OPERATOR, Susanne Unavailable Unavailable Green ACTIVATED SLUDGE OPERATOR ACTIVATED SLUDGE OPERATOR, Susanne Unavailable Unavailable Jaylin Tomlinson MD Unavailable [...] E TURNER PA Unavailable Unavailable PRYBYLOWSKI, E TURNRE PA Unavailable Unavailable PRYBYLOWSKI, E TURNER PA Unavailable Unavailable PRYBYLOWSKI, E TURNER PA Unavailable Unavailable PRYBYLOWSKI, E TURNER PA Unavailable Unavailable PRYBYLOWSKI, E TURNER PA Unavailable Unavailable PRYBYLOWSKI, E TURNER PA Unavailable Unavailable PRYBYLOWSKI, E TURNER PA Unavailable Unavailable PRYBYLOWSKI, E TURNER PA Unavailable Unavailable AXEL, E TIFFANY ACTIVATED SLUDGE OPERATOR Unavailable Unavailable AXEL, E TIFFANY ACTIVATED SLUDGE OPERATOR Unavailable Unavailable AXEL, E TIFFANY ACTIVATED SLUDGE OPERATOR Unavailable Unavailable AXEL, E TIFFANY ACTIVATED SLUDGE OPERATOR Unavailable Unavailable AXEL, E TIFFANY ACTIVATED SLUDGE OPERATOR Unavailable Unavailable AXEL, E TIFFANY ACTIVATED SLUDGE OPERATOR Unavailable Unavailable AXEL, E TIFFANY ACTIVATED SLUDGE OPERATOR Unavailable Unavailable AXEL, E TIFFANY ACTIVATED SLUDGE OPERATOR Unavailable Unavailable AXEL, E TIFFANY ACTIVATED SLUDGE OPERATOR Unavailable Unavailable AXEL, E TIFFANY ACTIVATED SLUDGE OPERATOR Unavailable Unavailable AXEL, E TIFFANY ACTIVATED SLUDGE OPERATOR Unavailable Unavailable AXEL, E TIFFANY ACTIVATED SLUDGE OPERATOR Unavailable Unavailable AXEL, E TIFFANY ACTIVATED SLUDGE OPERATOR Unavailable Unavailable Re-disclosure Warning The records that [...] is protected by Article 27-F of the [facility] Public Health law. If you continue you may have access to information: Regarding HIV / AIDS; Provided by facilities licensed or operated by the [facility] Office of Mental Health; or Provided by the [facility] Office for People With Developmental Disabilities. If such information is present, then the following [facility] mandated warning applies: This information has been [...] law may result in a fine or residential sentence or both. A general authorization for the release of medical or other information is NOT sufficient authorization for further disc losure. Allergies and Adverse Reactions Type Description Substance Reaction Status Data Source(s ) Propensity to adverse reactions latex Latex Acti ve [facility] ([facility]) Family History Family Member Name Family Member Gender Family Member Status Date o f Status Description Data Source(s) Unknown Female Diagnosis 03/16/2020 12:00:00 AM EDT [facility] ([facility]) Encounters Encounter Providers Location Date Indications Data Source(s ) Attender: Susanne Rizzo 03/12/2021 09:53:00 AM EDT - 03/12/2021 09:53:00 AM EDT [facility] ([facility]) Attender: Pushpa Sinha 09:25:00 AM EDT - 03/09/2021 09:25:00 AM EDT [facility] ([facility]) Attender: Pushpa Rizzo 1 09:57:00 AM EDT - 03/06/2021 09:57:00 AM EDT [facility] ([facility]) Attender: Susanne Sinha 1 07:45:00 AM EDT - 03/02/2021 07:45:00 AM EDT Pain in thoracic spinePain in right shou lderPain in left shoulderUnspecified injury of neck, initial encounter [facility] ([facility]) Pain in thoracic spine Pain in right shoulder Pain in left shoulder Unspecified injury of neck, initial enco unter Attender: Susanne Sinha 0 02/05/2021 03:27:00 PM EDT - 02/05/2021 03:27:00 PM EDT [facility] ([facility]) OFFICE VISIT, EST. Post ABOutpatient Attender: Marycarmen Sinha 01/23/2021 03:00:00 PM EDT - 01/23/2021 03:00:00 PM ED T Encntr for f/u exam aft trtmt for cond oth than malig neoplmEncounter for oth general cnsl and advice on contraceptionOther sex counseling [facility] ([facility]) Encntr for f/u exam aft trtmt for cond o th than malig neoplm Encounter for oth general cnsl and advic e on contraception Other sex counseling Attender: Marycarmen Sinha 03:42:00 PM EDT - 01/16/2021 03:42:00 PM EDT [facility] ([facility]) Attender: Susanne Sinha 0 01/13/2021 08:28:00 AM EDT - 01/13/2021 08:28:00 AM EDT [facility] ([facility]) Attender: TIFFANY Rizzo 11:16:00 AM EDT - 01/12/2021 11:16:00 AM EDT [facility] ([facility]) Attender: Pushpa Rizzo 0 01/02/2021 08:22:00 AM EDT - 01/02/2021 08:22:00 AM EDT [facility] ([facility]) OFFICE VISIT, EST Post ABOutpatient Attender: Susanne Sinha 01/01/2021 03:00:00 PM EDT - 01/01/2021 03:00:00 PM ED T Other sex counselingEncounter for surveillance of vagnl ringEncounter for oth general cnsl and advice on contraceptionEncntr for f/u exam aft trtmt for cond oth than malig neoplm [facility] ([facility]) Other sex counseling Encounter for surveillance of vagnl ring Encounter for oth general cnsl and advic e on contraception Encntr for f/u exam aft trtmt for cond o th than malig neoplm Attender: Susanne Gonzales NP ACTIVATED SLUDGE OPERATOR FATOU Sinha 0 01/01/2021 09:45:00 AM EDT - 01/01/2021 09:45:00 AM EDT [facility] ([facility]) Attender: Susanne Gonzales NP ACTIVATED SLUDGE OPERATOR FATOU Sinha 0 12/25/2020 02:45:00 PM EDT [...] result positive [facility] ([facility]) High risk heterosexual behavior Encntr screen [...] AM EDT [facility] ([facility]) Attender: Pushpa Rizzo 0 12/22/2020 04:24:00 PM EDT - 12/22/2020 04:24:00 PM EDT [facility] ([facility]) Attender: Pushpa Rizzo 0 09/12/2020 04:48:00 PM EDT - 09/12/2020 04:48:00 PM EDT [facility] ([facility]) Attender: Marycarmen Sinha 07:26:00 AM EDT - 09/11/2020 07:26:00 AM EDT [facility] ([facility]) OutpatientOFFICE VISIT, EST Attender: Susanne Gonzales NP ACTIVATED SLUDGE OPERATOR FATOU Sinha 09/08/2020 10:00:00 AM EDT - 09/08/2020 10:00:00 AM EDT Human immunodeficiency virus [HIV] counselingOther sex counselingEncounter for surveillance of vagnl ringEncounter for oth general cnsl and advice on contraceptionUnspecified ovarian cyst, unspecified sidePelvic and perineal pain [facility] ([facility]) Human immunodeficiency virus [HIV] couns eling Other sex counseling Encounter for surveillance of vagnl ring Encounter for oth general cnsl and advic e on contraception Unspecified ovarian cyst, unspecified si de Pelvic and perineal pain Attender: Melanie Sinha 08/24 02:00:00 PM EDT - 09/07/2020 02:00:00 PM EDT [facility] ([facility]) OFFICE VISIT, ESTOutpatient Attender: Marycarmen julien 05/03/2020 09:30:00 AM EST - 05/03/2020 09:30:00 AM EST Human immunodeficiency virus [HIV] counselingPruritus vulvaeOther specified noninflammatory disorders of vaginaCandidiasis of vulva and vaginaOther sex counselingEncounter for oth general cnsl and advice on contraception [facility] ([facility]) Human immunodeficiency virus [HIV] couns eling Pruritus vulvae Other specified noninflammatory disorder s of vagina Candidiasis of vulva and vagina Other sex counseling Encounter for oth general cnsl and advic e on contraception Attender: Marycarmen Sinha 01:13:00 PM EST - 04/11/2020 01:13:00 PM EST [facility] ([facility]) Attender: Marycarmen Sinha 09:30:00 AM EST - 04/07/2020 09:30:00 AM EST Anemia, unspecifiedEncntr for general ad ult medical exam w/o abnormal [facility] Anemia, unspecified Encntr for general adult medical exam w/ o abnormal findings Attender: Pushpa Sinha 03/2020 03:20:00 PM EST - 04/05/2020 03:20:00 PM EST [facility] ([facility]) OFFICE VISIT, ESTOutpatient Attender: Sheri LAINEZ [facility] 04/04/2020 03:15:00 PM EST - 04/04/2020 03:15:00 PM EST Encounter for screening for malignant neoplasm of cervixAcute vaginitisEncounter for oth general cnsl and advice on contraceptionOther sex counselingHuman immunodeficiency virus [HIV] counseling [facility] ([facility] Encounter for screening for malignant ne oplasm of cervix Acute vaginitis Encounter for oth general cnsl and advic e on contraception Other sex counseling Human immunodeficiency virus [HIV] couns eling Attender: TURNER Rizzo 03/20/2020 09:44:00 AM EDT - 03/20/2020 09:44:00 AM EDT [facility] ([facility]) PREV VISIT, NEW, AGE 18-39Outpatient Attender: Marycarmen Sinha 03/16/2020 01:30:00 PM EDT - 03/16/2020 01:30:00 PM ED T Encounter for surveillance of vagnl ringEncounter for oth general cnsl and advice on contraceptionOther sex counselingHuman immunodeficiency virus [HIV] counselingEncounter for screening for human immunodeficiency virusEncntr screen for infections w sexl mode of transmissEncntr for hematology nurse educator 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) (routine) w/o abn findings [facility] ([facility]) Encounter for surveillance of vagnl ring Encounter for oth general cnsl and advic e on contraception Other sex counseling Human immunodeficiency virus [HIV] couns eling Encounter for screening for human immuno deficiency virus Encntr screen for infections w sexl mode of transmiss Encntr for hematology nurse educator 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) (routine) w/o abn findings Attender: Pushpa Sinha 03:24:00 PM EDT - 02/23/2020 03:24:00 PM EDT [facility] ([facility]) Medications Medication Brand Name Start Date Product Form Dose Route Admi nistrative Instructions Pharmacy Instructions Status Indications Reaction Description Data Source(s) Naproxen 500 MG Oral Tablet naproxen 500 mg tablet naproxen 500 mg tablet 03/02/2021 12:00:00 AM EDT 1.00 {tablet} ORAL active take 1 tablet by oral route 2 times every day with food [facility] ([facility]) 21 DAY Ethinyl Estradiol 0.962069 MG/HR / Etonogestrel 0.005 MG/HR Vaginal Ring [NuvaRing] NuvaRing 0.12 mg-0.015 mg/24 hr vaginal NuvaRing 0.12 mg-0.015 mg/24 hr vaginal 01/13/2021 12:00:00 AM EDT active 21 DAY ethinyl estradiol 0.100848 MG/HR / etonogestrel 0.005 MG/HR Vaginal System [NuvaRing] [facility] ([facility]) Ibuprofen 800 MG Oral Tablet ibuprofen 800 mg tablet ibuprof en 800 mg tablet 12/25/2020 12:00:00 AM EDT completed 1 tab po every 8 hours prn [facility] ([facility]) Misoprostol 0.2 MG Oral Tablet misoprostol 200 mcg tab let misoprostol 200 mcg tablet 12/25/2020 12:00:00 AM EDT completed 4 tabs buccally 24-48 hrs after mifepristone (#4) [facility] ([facility]) Ondansetron 4 MG Oral Tablet ondansetron HCl 4 mg tabl et ondansetron HCl 4 mg tablet 12/25/2020 12:00:00 AM EDT completed 1 tab po every 4 hours prn [facility] ([facility]) Acetaminophen 300 MG / Codeine Phosphate 30 MG Oral Tablet acetaminophen 300 mg- codeine 30 mg tablet acetaminophen 300 mg-codeine 30 mg tablet 12/25/2020 12:00:00 AM EDT active 1-2 tabs po every 4 hours prn pain [facility] ([facility]) MDD 8 tablets 21 DAY Ethinyl Estradiol 0.771202 MG/HR / Etonogestrel 0.005 MG/HR Vaginal Ring [NuvaRing] NuvaRing 0.12 mg-0.015 mg/24 hr vaginal NuvaRing 0.12 mg-0.015 mg/24 hr vaginal 12/25/2020 12:00:00 AM EDT complet ed 21 DAY ethinyl estradiol 0.473114 MG/HR / etonogestrel 0.005 MG/HR Vaginal System [NuvaRing] [facility] ([facility]) Mifepristone 200 MG Oral Tablet [Mifeprex] Mifeprex 20 0 mg tablet Mifeprex 200 mg tablet 12/25/2020 12:00:00 AM EDT complete d mifepristone 200 MG Oral Tablet [Mifeprex] [facility] ([facility]) 21 DAY Ethinyl Estradiol 0.986220 MG/HR / Etonogestrel 0.005 MG/HR Vaginal Ring [NuvaRing] NuvaRing 0.12 mg-0.015 mg/24 hr vaginal NuvaRing 0.12 mg-0.015 mg/24 hr vaginal 09/08/2020 12:00:00 AM EDT complet ed 21 DAY ethinyl estradiol 0.734882 MG/HR / etonogestrel 0.005 MG/HR Vaginal System [NuvaRing] [facility] ([facility]) Fluconazole 150 MG Oral Tablet fluconazole 150 mg tabl et fluconazole 150 mg tablet 05/03/2020 12:00:00 AM EST active take 1 tablet by oral route. Repeat dose in 48 hrs if symptoms do not resolve [facility] ([facility]) Metronidazole 500 MG Oral Tablet metronidazole 500 mg tablet metronidazole 500 mg tablet 04/04/2020 12:00:00 AM EST 1 {tablet} ORAL comp leted take 1 tablet by oral route every 12 hours [facility] ([facility]) 21 DAY Ethinyl Estradiol 0.732874 MG/HR / Etonogestrel 0.005 MG/HR Vaginal Ring [NuvaRing] NuvaRing 0.12 mg-0.015 mg/24 hr vaginal NuvaRing 0.12 mg-0.015 mg/24 hr vaginal 03/16/2020 12:00:00 AM EDT complet ed 21 DAY ethinyl estradiol 0.152842 MG/HR / etonogestrel 0.005 MG/HR Vaginal System [NuvaRing] [facility] ([facility]) Medication administered onsite 21 DAY Ethinyl Estradiol 0.299919 MG/HR / Etonogestrel 0.005 MG/HR Vaginal Ring [NuvaRing] NuvaRing 0.12 mg-0.015 mg/24 hr vaginal NuvaRing 0.12 mg-0.015 mg/24 hr vaginal 03/16/2020 12:00:00 AM EDT complet ed 21 DAY ethinyl estradiol 0.865451 MG/HR / etonogestrel 0.005 MG/HR Vaginal System [NuvaRing] [facility] ([facility]) Fluconazole 150 MG Oral Tablet fluconazole 150 mg tabl et fluconazole 150 mg tablet 01/10/2020 12:00:00 AM EDT active 1 tablet po once [facility] ([facility]) 21 DAY Ethinyl Estradiol 0.572926 MG/HR / Etonogestrel 0.005 MG/HR Vaginal Ring [NuvaRing] NuvaRing 0.12 mg -0.015 mg/24 hr vaginal NuvaRing 0.12 mg -0.015 mg/24 hr vaginal 10/21/2019 12:00:00 AM EDT c ompleted 21 DAY ethinyl estradiol 0.150715 MG/HR / etonogestrel 0.005 MG/HR Vaginal System [NuvaRing] [facility] ([facility]) Probiotic 100 billion cell capsule Lactobac 40/Bifido 3/S.thermop completed [facility] ([facility]) Insurance Providers Payer name Policy type / Coverage type Policy ID Covered green party ID Covered green party's relationship to garcía Policy García Plan Information COMMERCIAL GENERIC U [id number] Self [id number] MEDICAID M [id number] Self [id number] LEX I [id number] Self [id number] LEX I Self [place] [id number] STPP Wrap [id number] Medicaid [id number] [place] [id number] SP [id number] T MEDICAID GME [id number] LEX CARE HEA [id number] [place] [id number] [place] [id number] LEX [place]ARE [place] W [id number] S [id number] UNAVAILABLE UNAVAILA BLE [place] [id number] SP [id number] [place] [id number] SP [id number] [facility] [id number] [facility] [id number] Problems, Conditions, and Diagnoses No Information Surgeries/Procedures Procedure Description Date Indications Data Source(s) CVR Exercise Equipment Repair Technician.Svc. Other 03/02/2021 12:00:00 AM EDT - 2020 12:00:00 AM EDT [facility] ([facility]) CVR Med.Svc. Height/Weight 03/02/2021 12 :00:00 AM EDT - 03/02/2021 12:00:00 AM EDT [facility] ([facility]) CVR Blood Pressure 03/02/2021 12:00:00 AM EDT - 2020 12:00:00 AM EDT [facility] ([facility]) Est Pt PC Exp Prob Focused 03/02/2021 12 :00:00 AM EDT - 03/02/2021 12:00:00 AM EDT [facility] ([facility]) CVR Exercise Equipment Repair Technician.Svc. STI / H 01/23/2021 12:00:00 AM EDT - 01/23/2021 12:00:00 AM EDT [facility] ([facility]) CVR Exercise Equipment Repair Technician.Svc. Contraceptive 01/23/2021 12 :00:00 AM EDT - [...] ([facility]) CVR Exercise Equipment Repair Technician.Svc. STI / H 01/01/2021 12:00:00 AM EDT - 01/01/2021 12:00:00 AM EDT [facility] ([facility]) CVR Exercise Equipment Repair Technician.Svc. Other 01/01/2021 12:00:00 AM EDT - 2020 12:00:00 AM EDT [facility] ([facility]) CVR Exercise Equipment Repair Technician.Svc. Contraceptive 01/01/2021 12 :00:00 AM EDT - 01/01/2021 12:00:00 AM EDT [facility] ([facility]) CVR Med.Svc. Height/Weight 01/01/2021 12 :00:00 AM EDT - 01/01/2021 12:00:00 AM EDT [facility] ([facility]) CVR Blood Pressure 01/01/2021 12:00:00 AM EDT - 2020 12:00:00 AM EDT [facility] ([facility]) OFFICE VISIT, EST Post AB 01/01/2021 12: 00:00 AM EDT - 01/01/2021 12:00:00 AM EDT [facility] ([facility]) HEMOGLOBIN 12/25/2020 12:00:00 AM EDT - 12/25/2020 1 2:00:00 AM EDT [facility] ([facility]) CAPILLARY BLOOD DRAW 12/25/2020 12:00:00 AM EDT - 12/25/2020 12:00:00 AM EDT [facility] ([facility]) N.GONORRHOEAE, DNA, AMP PROB 12/25/2020 12:00:00 AM EDT - 12/25/2020 12:00:00 AM EDT [facility] ([facility]) CHYLMD TRACH, DNA, AMP PROBE 12/25/2020 12:00:00 AM EDT - 12/25/2020 12:00:00 AM EDT [facility] ([facility]) URINE TEST 12/25/2020 12:00:00 AM EDT - 12/25/2020 12:00:00 AM EDT [facility] ([facility]) Est. Patient MAB Detailed 12/25/2020 12: 00:00 AM EDT - 12/25/2020 12:00:00 AM EDT [facility] ([facility]) CVR Exercise Equipment Repair Technician.Svc. STI / H 12/25/2020 12:00:00 AM EDT - 12/25/2020 12:00:00 AM EDT [facility] ([facility]) Ultrasound Uterus 12/25/2020 12 :00:00 AM EDT - 12/25/2020 12:00:00 AM EDT [facility] ([facility]) CVR Exercise Equipment Repair Technician.Svc. Other 12/25/2020 12:00:00 AM EDT - 2020 12:00:00 AM EDT [facility] ([facility]) CVR Exercise Equipment Repair Technician.Svc. Contraceptive 12/25/2020 12 :00:00 AM EDT - 12/25/2020 12:00:00 AM EDT [facility] ([facility]) CVR Med.Svc. Height/Weight 12/25/2020 12 :00:00 AM EDT - 12/25/2020 12:00:00 AM EDT [facility] ([facility]) CVR Blood Pressure 12/25/2020 12:00:00 AM EDT - 2020 12:00:00 AM EDT [facility] ([facility]) CVR Med.Svc. Other 12/25/2020 12:00:00 AM EDT - 2020 12:00:00 AM EDT [facility] ([facility]) Misoprostol, oral, 200 mcg 4 Tabs MAB 12:00:00 AM EDT - 12/25/2020 12:00:00 AM EDT [facility] ([facility]) Mifeprex, oral, 200 mg 12/25/2020 12:00: 00 AM EDT - 12/25/2020 12:00:00 AM EDT [facility] ([facility]) CAPILLARY BLOOD DRAW 12/25/2020 12:00:00 AM EDT - 12/25/2020 12:00:00 AM EDT [facility] ([facility]) CVR Exercise Equipment Repair Technician.Svc. STI / H 09/08/2020 12:00:00 AM EDT - 09/08/2020 12:00:00 AM EDT [facility] ([facility]) CVR Exercise Equipment Repair Technician.Svc. Other 09/08/2020 12:00:00 AM EDT - 2020 12:00:00 AM EDT [facility] ([facility]) CVR Exercise Equipment Repair Technician.Svc. Contraceptive 09/08/2020 12 :00:00 AM EDT - [...] ([facility]) CVR Exercise Equipment Repair Technician.Svc. Other 05/03/2020 12:00:00 AM EST - 2019 [...] AM EST [facility] ([facility]) Annual Est PC 18-39 04/07/2020 12:00:00 AM EST - 04/07 12:00:00 AM EST [facility] ([facility]) SMEAR, WET MOUNT, SALINE/INK 04/04/2020 12:00:00 AM EST - 04/04/2020 12:00:00 AM EST [facility] ([facility]) ASSAY OF BODY FLUID ACIDITY 04/04/2020 1 2:00:00 AM EST - 04/04/2020 12:00:00 AM EST [facility] ([facility]) CVR Exercise Equipment Repair Technician.Svc. STI / H 04/04/2020 12:00:00 AM EST - 04/04/2020 12:00:00 AM EST [facility] ([facility]) CVR Exercise Equipment Repair Technician.Svc. Other 04/04/2020 12:00:00 AM EST - 2019 12:00:00 AM EST [facility] ([facility]) CVR Exercise Equipment Repair Technician.Svc. Contraceptive 04/04/2020 12 :00:00 AM EST - 04/04/2020 12:00:00 AM EST [facility] ([facility]) CVR Med.Svc. Vaginitis Rx 04/04/2020 12: 00:00 AM EST - 04/04/2020 12:00:00 AM EST [facility] ([facility]) CVR Med.Svc. Height/Weight 04/04/2020 12 :00:00 AM EST - 04/04/2020 12:00:00 AM EST [facility] ([facility]) CVR Blood Pressure 04/04/2020 12:00:00 AM EST - 2019 12:00:00 AM EST [facility] ([facility]) HCS Without Test 04/04/2020 12:00:00 AM EST - 04/04/20 20 12:00:00 AM EST [facility] ([facility]) CYTOPATH, C/V, THIN LAYER 04/04/2020 12: 00:00 AM EST - 04/04/2020 12:00:00 AM EST [facility] ([facility]) OFFICE VISIT, EST 04/04/2020 12:00:00 AM EST - 2 020 12:00:00 AM EST [facility] ([facility]) CVR Exercise Equipment Repair Technician.Svc. STI / H 03/16/2020 12:00:00 AM EDT - 03/16/2020 12:00:00 AM EDT [facility] ([facility]) CVR Exercise Equipment Repair Technician.Svc. Other 03/16/2020 12:00:00 AM EDT - 2019 12:00:00 AM EDT [facility] ([facility]) CVR Exercise Equipment Repair Technician.Svc. Contraceptive 03/16/2020 12 :00:00 AM EDT - 03/16/2020 12:00:00 AM EDT [facility] ([facility]) CVR Med.Svc. Abdominal Palp. 03/16/2020 12:00:00 AM EDT - 03/16/2020 12:00:00 AM EDT [facility] ([facility]) CVR Med.Svc. Breast Exam 03/16/2020 12:0 [...] AM EDT [facility] ([facility]) ROUTINE VENIPUNCTURE 03/16/2020 12:00:00 AM EDT - 03/16/2020 12:00:00 AM EDT [facility] ([facility]) SYPHILLIS BLOOD SEROLOGY, QUALITATIVE 12:00:00 AM EDT - 03/16/2020 12:00:00 AM EDT [facility] ([facility]) HTLV/HIV CONFIRMATORY TEST 03/16/2020 12 :00:00 AM EDT - 03/16/2020 12:00:00 AM EDT [facility] ([facility]) HEPATITIS C AB TEST 03/16/2020 12:00:00 AM EDT - 03/16 12:00:00 AM EDT [facility] ([facility]) N.GONORRHOEAE, URINE 03/16/2020 12:00:00 AM EDT - 03/16/2020 12:00:00 AM EDT [facility] ([facility]) CHYLMD TRACH, URINE 03/16/2020 12:00:00 AM EDT - 03/16 12:00:00 AM EDT [facility] ([facility]) Results ID Date Data Source [id number] 12/25/2020 03:26:02 PM EDT [facility] ([facility]) Name Value Range Interpretation Code Description Data Miley rce(s) Supporting Document(s) PositiveLot: [id number]: 05/25/2022 Abnormal (applies to non-numeric results) High [facility] Hospital) ID Date Data Source [id number] 12/25/2020 03:25:31 PM EDT [facility] ([facility]) Name Value Range Interpretation Code Description Data Miley rce(s) Supporting Document(s) 11.60 gm/dL Hemoglobin [facility] ([facility]) ID Date Data Source [id number] 12/25/2020 12:00:00 AM EDT [facility] ([facility]) Name Value Range Interpretation Code Description Data Miley rce(s) Supporting Document(s) Negative Normal (applies to non-numeric resul ts) Urine CT/GC Combo - GC [facility] ([facility]) : No Performed by: SANDRO ([id number]) ID Date Data Source [id number] 12/25/2020 12:00:00 AM EDT [facility] ([facility]) Name Value Range Interpretation Code Description Data Miley rce(s) Supporting Document(s) Negative Normal (applies to non-numeric resul ts) Urine CT/GC Combo - CT [facility] ([facility]) ID Date Data Source [id number] 08/20/2020 10:50:00 AM EDT [facility] Name Value Range Interpretation Code Description Data Miley rce(s) Supporting Document(s) SARS-CoV-2 (COVID-19) Not Detected [facility] This lab was ordered by [facility] and reported by [facility]. ID Date Data Source [id number] 04/04/2020 04:38:18 PM EST [facility] ([facility]) Name Value Range Interpretation Code Description Data Miley rce(s) Supporting Document(s) Hyphae/Chuyita: no; Budding yeast: no; Trich: no; Clue cells: yes (>=20%); WBCs: no; Amine/Whiff test: positive; pH: 5.0 Abnormal (applies to non-numeric results) Wet Prep [facility] ([facility]) ID Date Data Source [id number] 04/04/2020 04:37:49 PM EST [facility] ([facility]) Name Value Range Interpretation Code Description Data Miley rce(s) Supporting Document(s) pH: 5.0. Vaginal pH [facility] ([facility]) Procedure Social History Code Duration Value Status Description Data Source(s ) Smoking 03/12/2021 12:00:00 AM EDT Never smoker completed Never s moker [facility] ([facility]) 03/02/2021 12:00:00 AM EDT Current non-smoker completed C urrent non-smoker [facility] ([facility]) Vital Signs ID Date Data Source UNK Name Value Range Interpretation Code Description Data Source(s) Body height 160.02 cm 160.02 cm [facility]) Body weight 87.543 kg 87.543 kg [facility] ([facility]) Systolic blood pressure 110 mm[Hg] 110 mm[Hg] N [facility] ([facility]) Diastolic blood pressure 82 mm[Hg] 82 mm[Hg] [facility] ([facility]) Heart rate 88 /min 88 /min [facility] Body temperature 37.22 Clover 37.22 Clover [facility] ([facility]) Respiratory rate 20 /min 20 /min [facility] ([facility]) Body mass index (BMI) [Ratio] 34.19 kg/m2 Overweight 34.19 kg/m2 [facility] ([facility]) Oxygen saturation in Arterial blood by Pulse oximetry 98 % 98 % [facility] ([facility]) Body height 160.02 cm 160.02 cm [facility] Body height 160.02 cm 160.02 cm [facility] Body height 160.02 cm 160.02 cm [facility] Body weight 91.626 kg 91.626 kg [facility] Systolic blood pressure 133 mm[Hg] 133 mm[Hg] N [facility] ([facility]) Diastolic blood pressure 79 mm[Hg] 79 mm[Hg] [facility] ([facility]) Body mass index (BMI) [Ratio] 35.78 kg/m2 Overweight 35.78 kg/m2 [facility] ([facility]) Body height 160.02 cm 160.02 cm [facility] Body weight 86.727 kg 86.727 kg [facility] ([facility] Systolic blood pressure 117 mm[Hg] 117 mm[Hg] N [facility] ([facility]) Diastolic blood pressure 74 mm[Hg] 74 mm[Hg] [facility] ([facility]) Body mass index (BMI) [Ratio] 33.87 kg/m2 Overweight 33.87 kg/m2 [facility] ([facility]) Body height 160.02 cm 160.02 cm [facility] Body weight 74.843 kg 74.843 kg [facility] Body mass index (BMI) [Ratio] 29.23 kg/m2 Overweight 29.23 kg/m2 [facility] ([facility]) Body height 160.02 cm 160.02 cm [facility] Body weight 77.111 kg 77.111 kg [facility] Systolic blood pressure 122 mm[Hg] 122 mm[Hg] N [facility] ([facility]) Diastolic blood pressure 80 mm[Hg] 80 mm[Hg] [facility] ([facility]) Heart rate 96 /min 96 /min [facility] Body temperature 35.33 Clover 35.33 Clover [facility] ([facility]) Body mass index (BMI) [Ratio] 30.11 kg/m2 Overweight 30.11 kg/m2 [facility] ([facility]) Oxygen saturation in Arterial blood by Pulse oximetry 98 % 98 % [facility] ([facility]) Body height 160.02 cm 160.02 cm [facility] Body weight 77.111 kg 77.111 kg [facility] Systolic blood pressure 130 mm[Hg] 130 mm[Hg] N [facility] ([facility]) Diastolic blood pressure 88 mm[Hg] 88 mm[Hg] [facility] ([facility]) Body mass index (BMI) [Ratio] 30.11 kg/m2 Overweight 30.11 kg/m2 [facility] ([facility]) Body height 160.02 cm 160.02 cm [facility] Body weight 77.111 kg 77.111 kg [facility] ([facility]) Systolic blood pressure 126 mm[Hg] 126 mm[Hg] N [facility] ([facility]) Diastolic blood pressure 70 mm[Hg] 70 mm[Hg] [facility] ([facility]) Body mass index (BMI) [Ratio] 30.11 kg/m2 Overweight 30.11 kg/m2 [facility] ([facility]) Patient Treatment Plan of Care Planned Activity Planned Date Details Description Data Source (s) Naproxen 500 MG Oral Tablet 03/02/2021 12:00:00 AM EDT [facility] ([facility]) 21 DAY Ethinyl Estradiol 0.097570 MG/HR / Etonogestrel 0.005 MG/HR Vaginal Ring [NuvaRing] 01/13/2021 12:00:00 AM EDT [facility] ([facility]) 21 DAY Ethinyl Estradiol 0.402004 MG/HR / Etonogestrel 0.005 MG/HR Vaginal Ring [NuvaRing] 12/25/2020 12:00:00 AM EDT [facility] ([facility]) Acetaminophen 300 MG / Codeine Phosphate 30 MG Oral Ta blet 12/25/2020 12:00:00 AM EDT [facility] Ondansetron 4 MG Oral Tablet 12/25/2020 12:00:00 AM EDT [facility] ([facility]) Ibuprofen 800 MG Oral Tablet 12/25/2020 12:00:00 AM EDT [facility] ([facility]) Misoprostol 0.2 MG Oral Tablet 12/25/2020 12:00:00 AM EDT [facility] ([facility]) Mifepristone 200 MG Oral Tablet [Mifeprex] 12/25/2020 12:00:00 AM E DT [facility] ([facility]) 21 DAY Ethinyl Estradiol 0.454062 MG/HR / Etonogestrel 0.005 MG/HR Vaginal Ring [NuvaRing] 09/08/2020 12:00:00 AM EDT [facility] ([facility]) Fluconazole 150 MG Oral Tablet 05/03/2020 12:00:00 AM EST [facility] ([facility]) Metronidazole 500 MG Oral Tablet 04/04/2020 12:00:00 AM EST [facility] ([facility]) 21 DAY Ethinyl Estradiol 0.862670 MG/HR / Etonogestrel 0.005 MG/HR Vaginal Ring [NuvaRing] 03/16/2020 12:00:00 AM EDT [facility] ([facility]) 21 DAY Ethinyl Estradiol 0.250311 MG/HR / Etonogestrel 0.005 MG/HR Vaginal Ring [NuvaRing] 03/16/2020 12:00:00 AM EDT [facility] ([facility]) Fluconazole 150 MG Oral Tablet 01/10/2020 12:00:00 AM EDT [facility] ([facility]) 21 DAY Ethinyl Estradiol 0.263411 MG/HR / Etonogestrel 0.005 MG/HR Vaginal Ring [NuvaRing] 10/21/2019 12:00:00 AM EDT [facility] ([facility]) Probiotic 100 billion cell capsule [facility] ([facility])
[2021-03-19 01:28] LABS: HEMATOCRIT 27.2 % (36.0-47.0); HEMOGLOBIN 8.9 g/dl (12.0-15.5)
[2021-03-19 01:59] LABS: AMPHETAMINES LEVEL URINE NEGATIVE (NEGATIVE); BARBITURATES URINE NEGATIVE (NEGATIVE); BENZODIAZEPINES URINE NEGATIVE (NEGATIVE); CANNABINOIDS URINE POSITIVE (NEGATIVE); COCAINE METABOLITE URINE NEGATIVE (NEGATIVE); METHADONE URINE NEGATIVE (NEGATIVE); OPIATES URINE NEGATIVE (NEGATIVE); PHENCYCLIDINE URINE NEGATIVE (NEGATIVE)
[2021-03-19] MEDS: NS 1,000 ML IV SCH ×2 (04:20→10:21)
[2021-03-19 06:00] VITALS: BP 116/66
[2021-03-19 06:21] LABS: HEMATOCRIT 27.6 % (36.0-47.0); HEMOGLOBIN 8.8 g/dl (12.0-15.5); MEAN CORPUSCULAR HEMOGLOBIN 23.8 pg (27.0-33.0); MEAN CORPUSCULAR HGB CONC 31.9 g/dl (32.0-36.5); MEAN CORPUSCULAR VOLUME 74.6 fl (80.0-96.0); PLATELET COUNT, AUTOMATED 242 10^3/uL (150-450)
[2021-03-19 06:54] LABS: ALBUMIN 2.9 GM/DL (3.2-5.2); ALT/SGPT 19 U/L (12-78); BILIRUBIN,TOTAL 0.5 MG/DL (0.2-1.0); BLOOD UREA NITROGEN 7 MG/DL (7-18); CALCIUM LEVEL 7.8 MG/DL (8.5-10.1); CARBON DIOXIDE LEVEL 27 MEQ/L (21-32); CHLORIDE LEVEL 115 MEQ/L (98-107); CREATININE FOR GFR 0.66 MG/DL (0.55-1.30); GLOMERULAR FILTRATION RATE > 60.0 (>60); GLUCOSE, FASTING 80 MG/DL (70-100); POTASSIUM SERUM 3.9 MEQ/L (3.5-5.1); SODIUM LEVEL 145 MEQ/L (136-145); TOTAL PROTEIN 6.2 GM/DL (6.4-8.2)
[2021-03-19] MEDS ORDERED: ISOVUE-370 76% 100ML VIAL As Ordered ONE (08:46)
--- NOTE | 2021-03-19 09:52 | REP ---
INDICATION: Esophageal rupture, GI bleed COMPARISON: None. TECHNIQUE: Standard helical technique after the intravenous administration of 100 cc Isovue 370 FINDINGS: There is a small amount of soft tissue density in the anterior mediastinum. There is no adenopathy. There are no pleural or pericardial effusions. The imaged osseous structures are within normal limits. Evaluation of the lung wahl shows no abnormal nodules, masses, or opacities. IMPRESSION: There is a small amount of soft tissue density in the anterior mediastinum likely representing a small amount of residual thymic tissue. 3 month follow-up is suggested. <Electronically signed by Nehemiah Ocasio > 03/19/21 0942
--- NOTE | 2021-03-19 10:09 | REP ---
INDICATION: Esophageal rupture, GI bleed. COMPARISON: 08/11/2020 TECHNIQUE: Standard helical technique after the intravenous administration of 100 cc Isovue 370 FINDINGS: There is a hyperenhancing nodule in the medial segment of the left lobe of the liver which measures 1.6 cm and is unchanged from the prior exam. The liver is otherwise unremarkable. The spleen, pancreas, adrenal glands, and kidneys are within normal limits. The abdominal aorta and para-aortic regions are within normal limits. The bowel loops and the mesenteries are within normal limits. There is no evidence of a mass or adenopathy. There is no free fluid or free air. There is a trace amount of free fluid in the pelvis which is likely physiologic. In the left adnexa there is an oval-shaped 3 cm sized cystic appearing structure. This is essentially unchanged compared to the prior exam. No pelvic adenopathy has developed. Bone window technique throughout the examination shows the osseous structures to be stable and intact. IMPRESSION: 1. Enhancing liver nodule as described above likely representing a small vascular malformation, however, consider pre and post gadolinium enhanced hepatic MRI for complete evaluation. 2. Likely left ovarian cyst essentially unchanged from the prior exam as described above. Consider pelvic ultrasonography if clinically relevant. 3. There is no evidence of acute intra-abdominal or intrapelvic disease <Electronically signed by Nehemiah Ocasio > 03/19/21 1000
[2021-03-19] MEDS ORDERED: PANTOPRAZOLE 40MG TAB (PROTONIX) PO ONE (11:00)
[2021-03-19] MEDS ORDERED: PANT40TA29 PO (12:43)
[2021-03-19] MEDS ORDERED: ZOFR4TAB16 PO (12:43)
--- NOTE | 2021-03-19 19:13 | DS.PDOC ---
Discharge Summary General Date of Admission Mar 18, 2021 at 21:06 Date of Discharge 03/19/21 Discharge Summary PROCEDURES PERFORMED DURING STAY: [None]. ADMITTING DIAGNOSES: Rhabdomyolysis Elevated troponin Nausea and vomiting Obesity Hematemesis DISCHARGE DIAGNOSES: Rhabdomyolysis Elevated troponin Nausea and vomiting Obesity Hematemesis Microcytic anemia COMPLICATIONS/CHIEF COMPLAINT: Elevated Troponin, Rhabdomyolysis,Vomiting. HISTORY OF PRESENT ILLNESS: 25-year-old female presents because of persistent nausea and vomiting and poor appetite. Patient endorses that yesterday she was drinking alcohol (hard liquor instead of wine which is what she is used to) after which she started vomiting and retching even she should notice a one-time episode of approximately 1 tablespoon of blood while vomiting. She denies seeing blood while throwing up in the past. She also endorses that her appetite has been down she has been able to keep down much fluids or food since yesterday. She denies any chest pain or shortness of breath. Denies muscle pain. Denies fevers or chills. She endorses feeling a little weak and dizzy at times. After receiving antiemetics in the emergency department she denies any more nausea or vomiting. In the emergency department patient was found to have rhabdomyolysis, elevated troponin, and reported hematemesis. Patient being admitted to the hospital for further medical workup and evaluation. HOSPITAL COURSE: During the hospital stay patient received IV hydration, CPK trended down. She did not have any vomiting or hematemesis. Elevated troponin most likely secondary to demand ischemia due to multiple episodes of vomiting. Troponin trended down, patient denied any chest pain, EKG did not show any acute ischemic changes. Patient will need follow-up with javascript ui developer in the outpatient settings. I talked to Dr. Barahona he recommended to discharge patient with follow-up with him in the office for possible EGD. Most likely patient developed Maura-Mireles tear most likely secondary to multiple episodes of vomiting. Also patient was found to have microcytic anemia. Follow-up with PCP for completion of work-up DISCHARGE MEDICATIONS: Please see below. ALLERGIES: Please see below. PHYSICAL EXAMINATION ON DISCHARGE: VITAL SIGNS: Please see below. Constitutional: Awake and alert, in no apparent distress ENT: Sclera are clear. Mucosa is moist. Respiratory: Lungs CTA bilaterally. No respiratory distress. Cardiovascular: RRR S1 and S2 are normal Gastrointestinal: Abdomen is soft, non distended, non tender, BS present. Musculoskeletal: No lower extremity edema. Neurologic: No focal neurological deficit. Mental Status: A&O x3, normal affect LABORATORY DATA: Please see below. IMAGING: COMPARISON: 08/11/2020 TECHNIQUE: Standard helical technique after the intravenous administration of 100 cc Isovue 370 FINDINGS: There is a hyperenhancing nodule in the medial segment of the left lobe of the liver which measures 1.6 cm and is unchanged from the prior exam. The liver is otherwise unremarkable. The spleen, pancreas, adrenal glands, and kidneys are within normal limits. The abdominal aorta and para-aortic regions are within normal limits. The bowel loops and the mesenteries are within normal limits. There is no evidence of a mass or adenopathy. There is no free fluid or free air. There is a trace amount of free fluid in the pelvis which is likely physiologic. In the left adnexa there is an oval-shaped 3 cm sized cystic appearing structure. This is essentially unchanged compared to the prior exam. No pelvic adenopathy has developed. Bone window technique throughout the examination shows the osseous structures to be stable and intact. IMPRESSION: 1. Enhancing liver nodule as described above likely representing a small vascular malformation, however, consider pre and post gadolinium enhanced hepatic MRI for complete evaluation. 2. Likely left ovarian cyst essentially unchanged from the prior exam as described above. Consider pelvic ultrasonography if clinically relevant. 3. There is no evidence of acute intra-abdominal or intrapelvic disease Esophageal rupture, GI bleed COMPARISON: None. TECHNIQUE: Standard helical technique after the intravenous administration of 100 cc Isovue 370 FINDINGS: There is a small amount of soft tissue density in the anterior mediastinum. There is no adenopathy. There are no pleural or pericardial effusions. The imaged osseous structures are within normal limits. Evaluation of the lung wahl shows no abnormal nodules, masses, or opacities. IMPRESSION: There is a small amount of soft tissue density in the anterior mediastinum likely representing a small amount of residual thymic tissue. 3 month follow-up is suggested. PROGNOSIS: Fair ACTIVITY: [As tolerated]. DIET: Soft mechanical diet for next 3 to 5 days DISPOSITION: 01 Home, Self-Care. DISCHARGE INSTRUCTIONS: Stop drinking alcohol for next 3 weeks Continue soft mechanical diet for 3 to 5 days ITEMS TO FOLLOWUP ON ON OUTPATIENT: Follow-up with PCP in 2 to 3 days. Patient will need to repeat CT chest due to incidental finding of soft tissue density in the anterior mediastinum Patient will need to complete work-up for microcytic anemia with PCP Follow-up with Dr. Barahona in the outpatient settings in 3 to 5 days for possible EGD DISCHARGE CONDITION: [Stable]. TIME SPENT ON DISCHARGE: 40 minutes. Vital Signs/I&Os Vital Signs Date Time Temp Pulse Resp B/P (MAP) Pulse Ox O2 Delivery O2 Flow Rate FiO2 03/19/21 06:00 98.3 75 16 116/66 (83) 100 Room Air I&O- Last 24 Hours up to 6 AM 03/19/21 06:00 Intake Total 1350 ml Output Total 75 ml Balance 1275 ml Laboratory Data Labs 24H Laboratory Tests 2 03/18/21 19:36: Coronavirus (COVID-19)(PCR) NEGATIVE, Influenza Type A (RT-PCR) NEGATIVE, Influenza Type B (RT-PCR) NEGATIVE, Respiratory Syncytial Virus (PCR) NEGATIVE 03/19/21 01:15: Troponin I 0.10# 03/19/21 01:22: Urine Opiates Screen NEGATIVE, Urine Methadone Screen NEGATIVE, Urine Barbiturat es Screen NEGATIVE, Urine Phencyclidine Screen NEGATIVE, Urine Amphetamines Screen NEGATIVE, Urine Benzodiazepines Screen NEGATIVE, Urine Cocaine Metabolite Screen NEGATIVE, Urine Cannabinoids Screen POSITIVEH 03/19/21 06:09: Troponin I 0.07#, Nucleated Red Blood Cells % (auto) 0.0, Anion Gap 3L, Glomerular Filtration Rate > 60.0, Calcium Level 7.8L, Magnesium Level 2.0, Tota l Bilirubin 0.5, Aspartate Amino Transf (AST/SGOT) 24, Alanine Aminotransferase (ALT/SGPT) 19, Alkaline Phosphatase 62, Total Creatine Kinase 823H, Total Protein 6.2L, Albumin 2.9#L, Albumin/Globulin Ratio 0.9L CBC/BMP Laboratory Tests 03/19/21 01:15 03/19/21 06:09 Discharge Medications Scheduled Pantoprazole Sodium (Pantoprazole Sodium) 40 Mg Tablet.dr, 40 MG PO DAILY Scheduled PRN Ondansetron HCl (Zofran) 4 Mg Tablet, 4 MG PO Q6-8HP PRN for nausea/vomiting Allergies Coded Allergies: Penicillins (Verified Allergy, Intermediate, vomiting , 05/28/19) ALEM IRWIN DO Mar 19, 2021 19:13
--- NOTE | 2021-03-19 21:05 | ECGEPIP ---
[facility] Test Date: 2021-03-18 Pat Name: GAVIN LUNDY Department: Room: [place] [address] Gender: Female Ui Ux Web Developer: jaja : 1995 Requested By: GEORGIANA Mosqueda Order Number: [id number] Reading MD: Dalton Martinez Measurements Intervals [place] Rate: 72 P: 76 MS: 154 QRS: 26 QRSD: 74 T: 34 QT: 416 QTc: 455 Interpretive Statements Normal sinus rhythm with sinus arrhythmia Low voltage QRS, chest leads Compared to prior tracings(2) in the system. No remarkable changes Electronically Signed on 03-19-2021 21:05:13 EDT by Dalton Martinez
--- NOTE | 2021-03-19 21:10 | ECGEPIP ---
[facility] Test Date: 2021-03-19 Pat Name: GAVIN LUNDY Department: Room: [place] [address] Gender: Female Trades Helper: eladia : 1995 Requested By: ALEM IRWIN Order Number: [id number] Reading MD: Dalton Martinez Measurements Intervals [place] Rate: 78 P: 45 IL: 130 QRS: 16 QRSD: 72 T: 22 QT: 396 QTc: 451 Interpretive Statements Normal sinus rhythm Low voltage QRS in the chest leads Compared to prior tracings(3) in the system. No remarkable changes. Electronically Signed on 03-19-2021 21:09:27 EDT by Dalton Martinez
[2021-03-20] MEDS ORDERED: PANTOPRAZOLE 40MG TAB (PROTONIX) PO SCH (09:00)
== END 2021-03-19 13:20 | disposition home or self-care (01) | DRG 351 ==
LOC: EDBD 17:06 → M ED 17:06 → M MSPAV 21:06 → ENRESERV 22:33
PROVIDERS: ADMIT Family Medicine; ATTEND Internal Medicine
DX: M62.82 Rhabdomyolysis (principal); E66.9 Obesity, unspecified; D50.9 Iron deficiency anemia, unspecified; R11.2 Nausea with vomiting, unspecified; Z88.0 Allergy status to penicillin; Z68.37 Body mass index [BMI] 37.0-37.9, adult; Z20.822 Contact with and (suspected) exposure to COVID-19

== ENCOUNTER → 2021-03-20 | Outpatient (CLI) | payer MEDICAID ==
[~2021-03-20] MED LIST changes: +PANT40TA29 PO; +ZOFR4TAB16 PO
--- NOTE | 2021-03-20 13:08 | REP ---
INDICATION: PELVIC/PERINEAL PAIN, OVARIAN CYST. COMPARISON: CT 03/19/2021 and 08/11/2020. TECHNIQUE: Transabdominal and transvaginal scanning performed. FINDINGS: Uterine dimensions are 9.6 x 4.6 x 6.7 cm. Endometrial echo is 6 mm in AP dimension and centrally placed. A heterogeneous hypoechoic area in the fundus may represent a fibroid 3.1 x 3.7 x 3.1 cm. The bladder measures 5.9 x 8.3 x 5.7cm. The right ovary has dimensions of 2.9 x 1.7 x 2.4 cm. It's Doppler flow is normal with a resistive index of 0.49. The left ovary dimensions are 4.7 x 2.8 x 3.7 cm. It's Doppler flow was normal with resistive index of 0.59. The left ovary demonstrates a complex cyst with hyperechoic debris, 3.1 x 2.8 x 2.3 cm. There is mild free fluid in the cul-de-sac. IMPRESSION: Complex left ovarian cyst appears stable compared to prior CT exams dating back to 08/11/2020. Mild free fluid. <Electronically signed by Bandar Rees > 03/20/21 [id number]
== END ==
LOC: M RAD 10:45
PROVIDERS: ATTEND Nurse Practitioner Family
DX: N83.202 Unspecified ovarian cyst, left side (principal); R10.2 Pelvic and perineal pain

== ENCOUNTER → 2022-07-04 | Outpatient (CLI) | payer MEDICAID, OTHER ==
[~2022-07-04] MED LIST changes: +NAPR-885 PO
== END ==
LOC: M LABSMTC 09:26
PROVIDERS: ATTEND Anesthesiology
DX: Z01.812 Encounter for preprocedural laboratory examination (principal); Z20.822 Contact with and (suspected) exposure to COVID-19

== ENCOUNTER 2022-07-08 07:11 | Day surgery (SDC) | payer OTHER ==
[~2022-07-08] VITALS: Ht 160 cm; Wt 96.6 kg
[~2022-07-08 07:11] MED LIST changes: +ceFAZolin SOD 2 GM in IV 1 EA IV ONE
[2022-07-08] MEDS ORDERED: propofoL 200 MG/20 ML VIAL As Ordered ONE (07:18)
[2022-07-08] MEDS ORDERED: fentaNYL 250 MCG/5 ML INJECTION As Ordered ONE (07:18)
[2022-07-08] MEDS ORDERED: LIDOCAINE 2% 100MG/5ML SDV (FOR ANES.) As Ordered ONE (07:18)
[2022-07-08] MEDS ORDERED: ROCURONIUM BROMIDE 50MG/5ML VIAL As Ordered ONE ×2 (07:18→09:30)
[2022-07-08] MEDS ORDERED: MIDAZOLAM INJ 2MG/2ML VIAL As Ordered ONE (07:19)
[2022-07-08] MEDS ORDERED: VASOPRESSIN INJ 20UNITS/ML 1ML VIAL As Ordered ONE ×2 (07:33→10:28)
[2022-07-08] MEDS ORDERED: BUPIVACAINE HCL 0.25% 30ML VIAL As Ordered ONE (07:33)
[2022-07-08 07:51] LABS: HEMATOCRIT 32.7 % (36.0-47.0); HEMOGLOBIN 9.6 g/dl (12.0-15.5); MEAN CORPUSCULAR HEMOGLOBIN 19.7 pg (27.0-33.0); MEAN CORPUSCULAR HGB CONC 29.4 g/dl (32.0-36.5); PLATELET COUNT, AUTOMATED 341 10^3/uL (150-450); RED BLOOD COUNT 4.88 10^6/uL (4.00-5.40); WHITE BLOOD COUNT 5.5 10^3/uL (4.0-10.0)
[2022-07-08] MEDS ORDERED: LACRILUBE (AKWA TEARS) OPHTH OINT 3.5GM As Ordered ONE (08:47)
[2022-07-08] MEDS ORDERED: ACETAMINOPHEN 1000MG 100ML IV BAG As Ordered ONE (09:24)
[2022-07-08] MEDS ORDERED: ONDANSETRON 4MG 2ML VIAL As Ordered ONE (09:25)
[2022-07-08] MEDS ORDERED: METOCLOPRAMIDE INJ 10MG/2ML VIAL As Ordered ONE (09:25)
[2022-07-08] MEDS ORDERED: SUGAMMADEX SODIUM 500 MG/5 ML VIAL (BRIDION) As Ordered ONE (09:25)
[2022-07-08] MEDS ORDERED: KETOROLAC 60MG 2ML VIAL As Ordered ONE (09:25)
[2022-07-08] MEDS ORDERED: fentaNYL 100 MCG/2 ML INJECTION As Ordered ONE (09:38)
[2022-07-08] MEDS ORDERED: LR 1,000 ML IV SCH ×2 (09:50→10:10)
[2022-07-08] MEDS ORDERED: ONDANSETRON 4MG 2ML VIAL IV PRN ×2 (10:10→13:30)
[2022-07-08] MEDS ORDERED: oxyCODONE 5MG TAB PO PRN (10:10)
[2022-07-08] MEDS ORDERED: fentaNYL 100 MCG/2 ML INJECTION IV PRN (10:10)
[2022-07-08] MEDS ORDERED: IBUP-1022 PO (10:37)
[2022-07-08] MEDS ORDERED: OXYC1TAB23 PO (10:37)
[2022-07-08] MEDS: HYDROMORPHONE HCL 0.5 MG/ 0.5 ML SYRINGE IV PRN ×2 (10:47→10:53)
[2022-07-08] MEDS ORDERED: PERCOCET 5MG/325MG TAB PO PRN (11:50)
[2022-07-08] MEDS ORDERED: PROMETHAZINE 25MG/ML 1ML VIAL IV PRN (13:30)
[2022-07-08 14:30] VITALS: BP 106/58
== END 2022-07-08 14:49 | disposition home or self-care (01) ==
LOC: M SDC 07:11
PROVIDERS: ATTEND Specialist
DX: N84.0 Polyp of corpus uteri (principal); D25.9 Leiomyoma of uterus, unspecified; Z88.0 Allergy status to penicillin; Z91.040 Latex allergy status
CPT/HCPCS: 36415; 58545; 58558; 81025; 85027; 86850; 86900; 86901; 88305; J0690; J1100; J1170; J2250; J2405; J2765; J3010; S2900

== ENCOUNTER → 2022-09-06 | Outpatient (REF) | payer OTHER ==
[~2022-09-06] MED LIST changes: +IBUP-1022 PO; +OXYC1TAB23 PO; -ceFAZolin SOD 2 GM in IV 1 EA IV ONE
[2022-09-06 18:39] LABS: BASO % 0.5 % (0.0-1.0); EOS # 0.4 10^3/uL (0.0-0.5); EOS % 5.6 % (0.0-3.0); HEMATOCRIT 29.9 % (36.0-47.0); HEMOGLOBIN 8.8 g/dl (12.0-15.5); LYMPH # 2.1 10^3/uL (1.5-5.0); LYMPH % 31.7 % (24.0-44.0); MEAN CORPUSCULAR HEMOGLOBIN 19.3 pg (27.0-33.0); MEAN CORPUSCULAR HGB CONC 29.4 g/dl (32.0-36.5); MEAN CORPUSCULAR VOLUME 65.6 fl (80.0-96.0); MONO # 0.4 10^3/uL (0.0-0.8); MONO % 6.8 % (2.0-8.0); NEUTROPHILS # 3.6 10^3/uL (1.5-8.5); NEUTROPHILS % 55.1 % (36.0-66.0); PLATELET COUNT, AUTOMATED 391 10^3/uL (150-450); RED BLOOD COUNT 4.56 10^6/uL (4.00-5.40); WHITE BLOOD COUNT 6.5 10^3/uL (4.0-10.0)
[2022-09-06 19:08] LABS: ALBUMIN 3.8 G/DL (3.2-5.2); ALKALINE PHOSPHATASE 80 U/L (46-116); ALT/SGPT 29 U/L (7.0-40); AST/SGOT 11 U/L (<34); BILIRUBIN,TOTAL 0.6 MG/DL (0.3-1.2); BLOOD UREA NITROGEN 7 MG/DL (9-23); CALCIUM LEVEL 8.9 MG/DL (8.5-10.1); CARBON DIOXIDE LEVEL 28 MMOL/L (20-31); CHLORIDE LEVEL 106 MMOL/L (98-107); CHOLESTEROL LEVEL 145 MG/DL (<200); CHOLESTEROL RISK RATIO 3.06 (<5); CREATININE FOR GFR 0.64 MG/DL (0.55-1.30); GLOMERULAR FILTRATION RATE > 60.0 (>60); GLUCOSE, FASTING 73 MG/DL (60-100); HDL CHOLESTEROL 47.3 MG/DL (>40); LDL CHOLESTEROL 86.3 MG/DL (<100); NON-HDL-C 97.7 MG/DL; POTASSIUM SERUM 4.3 MMOL/L (3.5-5.1); SODIUM LEVEL 140 MMOL/L (136-145); TOTAL PROTEIN 7.1 G/DL (5.7-8.2); TRIGLYCERIDES LEVEL 57 MG/DL (<150)
[2022-09-06 19:09] LABS: THYROID STIMULATING HORMONE 2.921 uIU/ML (0.55-4.78); TOTAL 25(OH) VITAMIN D 11.1 NG/ML (20.0-100.0)
[2022-09-06 19:10] LABS: HEMOGLOBIN A1c 5.2 % (4.0-6.0)
[2022-09-06 19:11] LABS: THYROID PEROXIDASE ANTIBODY < 28.0 U/ML (<60.0)
== END ==
LOC: M LAB REF 16:15
PROVIDERS: ATTEND Pediatrics
DX: E55.9 Vitamin D deficiency, unspecified (principal); E66.9 Obesity, unspecified; E04.9 Nontoxic goiter, unspecified

== ENCOUNTER → 2022-10-14 | Outpatient (CLI) | payer OTHER | LOC: M RAD 14:48 | PROVIDERS: ATTEND Pediatrics | DX: E04.9 Nontoxic goiter, unspecified (principal) ==

== ENCOUNTER → 2022-11-20 | Outpatient (REF) | payer OTHER, MEDICAID ==
[2022-11-20 14:35] LABS: BASO % 0.5 % (0.0-1.0); EOS # 0.4 10^3/uL (0.0-0.5); EOS % 5.9 % (0.0-3.0); HEMATOCRIT 31.9 % (36.0-47.0); HEMOGLOBIN 8.9 g/dl (12.0-15.5); LYMPH # 1.6 10^3/uL (1.5-5.0); LYMPH % 25.1 % (24.0-44.0); MEAN CORPUSCULAR HEMOGLOBIN 17.8 pg (27.0-33.0); MEAN CORPUSCULAR HGB CONC 27.9 g/dl (32.0-36.5); MEAN CORPUSCULAR VOLUME 63.7 fl (80.0-96.0); MONO # 0.5 10^3/uL (0.0-0.8); MONO % 7.4 % (2.0-8.0); NEUTROPHILS # 3.8 10^3/uL (1.5-8.5); NEUTROPHILS % 60.8 % (36.0-66.0); PLATELET COUNT, AUTOMATED 355 10^3/uL (150-450); RED BLOOD COUNT 5.01 10^6/uL (4.00-5.40); WHITE BLOOD COUNT 6.2 10^3/uL (4.0-10.0)
[2022-11-20 14:41] LABS: PERCENT SATURATION 4.6 % (13.2-45.0)
[2022-11-20 14:42] LABS: FERRITIN 5.7 NG/ML (7.3-270.7)
== END ==
LOC: M LAB REF 12:30
PROVIDERS: ATTEND Pediatrics
DX: D64.9 Anemia, unspecified (principal)

== ENCOUNTER → 2023-07-14 | Outpatient (REF) | payer OTHER ==
[~2023-07-14] MED LIST changes: +FERR325T19 PO; +MELO15TA28 PO; +VITA200032 PO
[2023-07-14 18:12] LABS: THYROID STIMULATING HORMONE 1.567 uIU/ML (0.55-4.78)
[2023-07-14 18:13] LABS: FOLLICLE STIMULATING HORMONE 4.7 mIU/ML
[2023-07-14 18:14] LABS: LUTEINIZING HORMONE 13.3 mIU/ML
[2023-07-14 18:21] LABS: HCG, SERUM QUALITATIVE NEGATIVE (NEGATIVE)
== END ==
LOC: M LAB REF 16:28
PROVIDERS: ATTEND Pediatrics
DX: N92.6 Irregular menstruation, unspecified (principal)